=== PATIENT | female | born 1940 | race African-American/Black ===

== ENCOUNTER 2016-10-17 14:53 | Inpatient (IN) | payer MEDICARE, OTHER ==
[~2016-10-17] VITALS: Ht 160 cm; Wt 104.9 kg
[~2016-10-17 14:53] MED LIST: AMLO10TA2 PO; ATOR40TA PO; CARV12.52 PO; CETI-17 PO; CITA10TA8 PO; CLON0.1T PO; FERR325T58 PO; FURO40TA4 PO; GLIP5TAB10 PO; HYDR-2869 PO; INSU100I13 SQ; INSU100I17 SQ; INSU100V8 SQ; ISOS60TA PO; LACT1CAP PO; LEVO75TA5 PO; LINA5TAB PO; NITR100C62 PO; ONDA4TAB10 SL; VANC1VIA3 PO
--- NOTE | 2016-10-17 15:23 | PHYS DOC ---
Past Medical History Past Medical History: CHF, Diabetes-Type I, Hypertension, Hypothyroid, Renal Failure Additional Past Medical Histor: Essential Tremors Past Surgical History: Appendectomy, Tubal ligation Additional Past Surgical Histo: AV Fistula Right Arm, BLADDER SX Alcohol Use: None Drug Use: None Adult General Chief Complaint Chief Complaint: SHORTNESS OF BREATH HPI HPI Patient is a 76 year old female who presents with complaint shortness of breath. Patient states that her symptoms started while she was at dialysis today. Patient states that she was approximately 3 hours in the treatment when she started having worsening shortness of breath. The patient was brought to the emergency department from dialysis. Patient states that she had been feeling sick including having chest pressure which started yesterday. Patient states that that has been constant. Patient has nausea but denies any vomiting. Patient states her shortness of breath gets worse with exertion. Patient denies any fevers or sick contacts. Patient follows with Dr. Hart for primary care. Review of Systems Review of Systems Constitutional: Denies fever or chills [] Eyes: Denies change in visual acuity, redness, or eye pain [] HENT: Denies nasal congestion or sore throat [] Respiratory: Shortness of breath [] Cardiovascular: Chest pain, denies edema [] GI: Nausea, denies abdominal pain, vomiting, bloody stools or diarrhea [] : Denies dysuria or hematuria [] Musculoskeletal: Denies back pain or joint pain [] Integument: Denies rash or skin lesions [] Neurologic: Denies headache, focal weakness or sensory changes [] Current Medications Current Medications Current Medications Medications (Trade) Dose Ordered Sig/Pat Start Time Stop Time Status Last Admin Dose Admin Acetaminophen (Tylenol) 650 mg PRN Q4HRS PRN 10/17/16 17:30 10/18/16 17:29 Ondansetron HCl (Zofran) 4 mg PRN Q8HRS PRN 10/17/16 17:30 10/18/16 17:29 Oseltamivir Phosphate (Tamiflu) 30 mg 1X ONCE 10/17/16 16:20 10/17/16 16:22 DC 10/17/16 16:32 30 MG Allergies Allergies Allergies Coded Allergies Type Severity Reaction Last Updated Verified morphine Allergy Severe 06/12/14 Yes codeine Allergy Intermediate HIVES 06/12/14 Yes Physical Exam Physical Exam Constitutional: Alert, afebrile, appears ill. [] HENT: Normocephalic, atraumatic, bilateral external ears normal, oropharynx moist, no oral exudates, nose normal. [] Eyes: PERRLA, EOMI, conjunctiva normal, no discharge. [] Neck: Normal range of motion, no tenderness, supple, no stridor. [] Cardiovascular:Heart rate regular rhythm, no murmur [] Lungs & Thorax: Bilateral breath sounds clear to auscultation [] Abdomen: Bowel sounds normal, soft, no tenderness, no masses, no pulsatile masses. [] Skin: Warm, dry, no erythema, no rash. [] Back: No tenderness, no CVA tenderness. [] Extremities: Right upper extremity AV fistula with palpable thrill, No tenderness, no cyanosis, no clubbing, ROM intact, trace pedal edema bilaterally. [] Neurologic: Alert and oriented X 3, normal motor function, normal sensory function, no focal deficits noted. [] Current Patient Data Vital Signs Vital Signs Date Time Temp Pulse Resp B/P Pulse Ox O2 Delivery O2 Flow Rate FiO2 10/17/16 16:00 69 19 118/58 94 Room Air 10/17/16 15:04 98.2 98.2 Lab Values Laboratory Tests Test 10/17/16 15:30 10/17/16 15:40 10/17/16 16:02 White Blood Count 5.1x10^3/uL (4.0-11.0) Red Blood Count 3.87x10^6/uL (3.50-5.40) Hemoglobin 11.5g/dL (12.0-15.5) L Hematocrit 34.1% (36.0-47.0) L Mean Corpuscular Volume 88fL (79-100) Mean Corpuscular Hemoglobin 30pg (25-35) Mean Corpuscular Hemoglobin Concent 34g/dL (31-37) Red Cell Distribution Width 14.0% (11.5-14.5) Platelet Count 177x10^3/uL (140-400) Neutrophils (%) (Auto) 64% (31-73) Lymphocytes (%) (Auto) 25% (24-48) Monocytes (%) (Auto) 8% (0-9) Eosinophils (%) (Auto) 3% (0-3) Basophils (%) (Auto) 0% (0-3) Neutrophils # (Auto) 3.2x10^3uL (1.8-7.7) Lymphocytes # (Auto) 1.2x10^3/uL (1.0-4.8) Monocytes # (Auto) 0.4x10^3/uL (0.0-1.1) Eosinophils # (Auto) 0.2x10^3/uL (0.0-0.7) Basophils # (Auto) 0.0x10^3/uL (0.0-0.2) Influenza Type A Antigen Positive (NEGATIVE) Influenza Type B Antigen Negative (NEGATIVE) Sodium Level 142mmol/L (136-145) Potassium Level 3.7mmol/L (3.5-5.1) Chloride Level 101mmol/L (98-107) Carbon Dioxide Level 33mmol/L (21-32) H Anion Gap 8 (6-14) Blood Urea Nitrogen 20mg/dL (7-20) Creatinine 3.9mg/dL (0.6-1.0) H Estimated GFR (Cockcroft-Gault) 13.6 BUN/Creatinine Ratio 5 (6-20) L Glucose Level 242mg/dL (70-99) H Calcium Level 8.8mg/dL (8.5-10.1) Total Bilirubin 0.4mg/dL (0.2-1.0) Aspartate Amino Transferase (AST) 16U/L (15-37) Alanine Aminotransferase (ALT) 20U/L (14-59) Alkaline Phosphatase 64U/L (46-116) Creatine Kinase 40U/L (26-192) Creatine Kinase MB (Mass) 1.4ng/mL (0.0-3.6) Creatine Kinase MB Relative Index 3.5% (0-4) Troponin I Quantitative < 0.017ng/mL (0.000-0.055) Total Protein 7.9g/dL (6.4-8.2) Albumin 3.2g/dL (3.4-5.0) L Albumin/Globulin Ratio 0.7 (1.0-1.7) L Laboratory Tests 10/17/16 15:30 Laboratory Tests 10/17/16 16:02 EKG EKG Interpreted by me: Heart rate 71, sinus rhythm, leftward axis, no acute ST/T- wave abnormalities present [] Radiology/Procedures Radiology/Procedures [facility] [address] [place], [place] [id number] IMAGING REPORT Signed PATIENT: MALA BAILEY ACCOUNT: [id number] : 1940 LOCATION: ER AGE: 76 SEX: F EXAM STATUS: REG ER ORD. PHYSICIAN: NYASIA KINCAID MD REASON: shortness of breath, chest pain, PROCEDURE: PORTABLE CHEST 1V Portable chest, 10/17/2016: History: Shortness of breath, chest pain Comparison is made to a study from 08/13/2016. The heart is at the upper limits of normal in size. There is calcific plaquing and tortuosity of the aorta. The pulmonary vascularity is normal. No pulmonary infiltrates are seen.. There is no evidence of pleural fluid. A vascular stent is projected over the right subclavian/axillary region. IMPRESSION: No acute cardiopulmonary abnormality is detected. DICTATED and SIGNED BY: LADARIUS FARR MD DATE: 10/17/16 155 CC: NYASIA KINCAID MD; BROOKE HART MD ~ [] Course & Med Decision Making Course & Med Decision Making Pertinent Labs and Imaging studies reviewed. (See chart for details) Patient was found to test positive for influenza A. Patient was started on Tamiflu 30 mg for renal dosing. Spoke with patient regarding her symptoms. Patient continues to have chest pressure and states that she does not feel comfortable returning home in her current state health. I spoke with Dr. Hart who agreed to admit the patient for continued treatment of influenza and symptoms. Dragon Disclaimer Dragon Disclaimer This electronic medical record was generated, in whole or in part, using a voice recognition dictation system. Departure Departure Impression: Primary Impression: Influenza A Additional Impressions: End stage renal disease Type 2 diabetes mellitus Mild protein malnutrition Disposition: ADMITTED INPATIENT Admitting Physician: Brooke Hart Condition: STABLE Referrals: BROOKE HART MD (PCP) Problem Qualifiers Additional Impressions: Type 2 diabetes mellitus Diabetes mellitus complication status: with hyperglycemia Diabetes mellitus long-term insulin use: unspecified technician terminal and repeater insulin use status Qualified Code : E11.65 - Type 2 diabetes mellitus with hyperglycemia NYASIA KINCAID MD Oct 17, 2016 15:23
[2016-10-17 15:48] LABS: BASO % 0 % (0-3); EOS % 3 % (0-3); HEMATOCRIT 34.1 % (36.0-47.0); HEMOGLOBIN 11.5 g/dL (12.0-15.5); LYMPH # 1.2 x10^3/uL (1.0-4.8); LYMPH % 25 % (24-48); MEAN CORPUSCULAR HEMOGLOBIN 30 pg (25-35); MEAN CORPUSCULAR HGB CONC 34 g/dL (31-37); MEAN CORPUSCULAR VOLUME 88 fL (79-100); MONO % 8 % (0-9); NEUT % 64 % (31-73); PLATELET COUNT 177 x10^3/uL (140-400); RED BLOOD COUNT 3.87 x10^6/uL (3.50-5.40); WHITE BLOOD COUNT 5.1 x10^3/uL (4.0-11.0)
--- NOTE | 2016-10-17 15:55 | RAD ---
Portable chest, 10/17/2016: History: Shortness of breath, chest pain Comparison is made to a study from 08/13/2016. The heart is at the upper limits of normal in size. There is calcific plaquing and tortuosity of the aorta. The pulmonary vascularity is normal. No pulmonary infiltrates are seen.. There is no evidence of pleural fluid. A vascular stent is projected over the right subclavian/axillary region. IMPRESSION: No acute cardiopulmonary abnormality is detected.
[2016-10-17 16:09] LABS: OBC FLU VALID
--- NOTE | 2016-10-17 16:14 | EKG ---
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
[2016-10-17 16:20] LABS: CALCIUM 8.8 mg/dL (8.5-10.1); CREATININE 3.9 mg/dL (0.6-1.0); GFR 13.6; POTASSIUM 3.7 mmol/L (3.5-5.1)
[2016-10-17] MEDS ORDERED: OSELTAMIVIR 30 MG CAPSULE PO ONE (16:20)
[2016-10-17 16:26] LABS: ALBUMIN 3.2 g/dL (3.4-5.0); ALBUMIN/GLOBULIN RATIO 0.7 (1.0-1.7); TOTAL BILIRUBIN 0.4 mg/dL (0.2-1.0); TOTAL PROTEIN 7.9 g/dL (6.4-8.2)
[2016-10-17 16:47] LABS: CKMB INDEX 3.5 % (0-4); CKMB MASS 1.4 ng/mL (0.0-3.6)
[2016-10-17] MEDS ORDERED: ACETAMINOPHEN 325 MG TABLET. PO PRN (17:30)
[2016-10-17] MEDS ORDERED: ONDANSETRON PF 4 MG/2 ML VIAL. IV PRN (17:30)
--- NOTE | 2016-10-17 17:59 | ACF ---
Admission Forms Criteria SYSTEMIC OR INFECTIOUS CONDITION Clinical Indications for Admission to Inpatient Care (Place 'X' for any and all applicable criteria): Hospital admission is needed for appropriate care of the patient because of ANY ONE of the following: []I. Hemodynamic instability indicated by ANY ONE of the following(1)(2)(3)(4 )(5): []a. Vital sign abnormality not readily corrected by appropriate treatment within 12 to 24 hours indicated by ANY ONE of the following: []i) Tachycardia that persists despite appropriate treatment []ii) Hypotension that persists despite appropriate treatment []iii) Orthostatic vital sign changes that persist despite appropriate treatment []b. Vital sign abnormality that is severe indicated by ANY ONE of the following: []i. Inadequate perfusion indicated by ANY ONE of the following: []1) Lactic acidosis (greater than 2 mmol/L) []2) New abnormal capillary refill (greater than 3 seconds) []3) Reduced urine output []4) New altered mental status []5) Myocardial Ischemia []ii. Mean arterial pressure [A] less than 60 mm Hg []iii. Mean arterial pressure[A] less than 70 mm Hg after 30 minutes of appropriate treatment (eg, fluid resuscitation) []iv. Sustained heart rate greater than 120 beats per minute in adult []v. IV inotropic or vasopressor medication required to maintain adequate blood pressure or perfusion []II. Systemic or infectious condition causing severe symptoms or findings not responsive to emergency or observation care treatment (as appropriate) indicated by ANY ONE of the following: []a. Cardiac arrhythmias of immediate concern(1)(2)(3) []b. Severe endocrine disorder (eg, thyrotoxicosis, adrenal insufficiency)(4)(5) []c. Seizures (eg, new or recurrent)(6) []d. New-onset end organ failure or dysfunction as indicated by ANY ONE of the following: []i. Acute unexplained hypoxemia (eg, not from lung infection or chronic disease)(7)(8)(9) []ii. Acute renal failure as indicated by new onset of ANY ONE of the following(10)(11)(12)(13)(14): []1) 3-fold rise in serum creatinine from baseline []2) Serum creatinine greater than 4 mg/dL (354 micromoles/L) with acute rise greater than 0.5 mg/dL (44.2 micromoles/L) []3) Reduction of more than 75% in estimated glomerular filtration rate from baseline. []4) Estimated glomerular filtration rate less than 35 mL/min/1.73m2 ( 0.59 mL/sec/1.73m2) in child younger than 18 years. []5) Cessation of urine output indicated by ALL of the following: []A. Adequate volume status []B. Inadequate urine output as indicated by ANY ONE of the following: []a. Urine output less than 0.3 mL/kg/hr for 24 hours []b. Anuria (urine output less than 0.1 mL/kg/hr) for 12 hours []iii. Acute mental status changes(15) []iv. Acute hepatic failure (eg, plasma bilirubin greater than 4 mg/ dL (68 micromoles/L), new INR greater than 2.0)(16)(17) []e. Unmanageable nausea and vomiting(18) []f. New-onset or uncontrolled central diabetes insipidus(19)(20) []g. Clinically significant dehydration(18)(21) []h. Hypoglycemia(22) []i. Acidosis (pH less than 7.35) or alkalosis (pH greater than 7.45)( 22)(23) []j. Toxic drug level that indicates need for specific monitoring or treatment(24)(25) []k. Severe electrolyte abnormalities indicated by ALL of the following( 1)(2)(3): []i. Electrolytes and associated findings are not as expected for patient baseline or acceptable treatment effects. []ii. Severe abnormalities indicated by ANY ONE of the following: []1) Sodium less than 130 mEq/L (mmol/L) (new) []2) Sodium less than 135 mEq/L (mmol/L) with ANY ONE of the following: []A. Uncorrectable (to near normal or chronic baseline) after trial of outpatient and emergency treatment []B. Altered mental status []C. Seizures []D. Severe medical etiology requiring inpatient management (eg , heart failure, hypovolemia) []3) Sodium greater than 155 mEq/L (mmol/L) []4) Sodium greater than 150 mEq/L (mmol/L) with ANY ONE of the following: []A. Uncorrectable (to near normal or chronic baseline) with outpatient and emergency treatment []B. Altered mental status []C. Seizures []D. Severe medical etiology (eg, hypovolemia, diabetes insipidus) []5) Potassium less than 2.5 mEq/L (mmol/L) despite outpatient and emergency treatment []6) Potassium less than 3 mEq/L (mmol/L) with ANY ONE of the following : []A. Weakness []B. Cardiac abnormality (eg, arrhythmia, conduction disturbance ) []C. Cardiac ischemia []D. Ileus []E. Ongoing medical cause requiring inpatient management (eg, acute renal wasting or SIADH) []F. Other severe symptoms []7) Potassium greater than 6.5 mEq/L (mmol/L) []8) Potassium greater than 5 mEq/L (mmol/L) with ANY ONE of the following: []A. Uncorrectable (to near normal or chronic baseline) with outpatient and emergency treatment []B. Severe ECG findings[A] []C. Acute worsening of renal failure (creatinine greater than 2.5 mg/dL (221 micromoles/L) or significant elevation for age and size) []D. Severe weakness []E. Severe medical etiology (eg, hemolysis, infection, drug overdose) []9) Calcium less than 7 mg/dL (1.75 mmol/L) despite outpatient and emergency treatment(5) []10) Calcium less than 8 mg/dL (2 mmol/L) with significant symptoms or findings (eg, altered mental status, muscle spasms, seizures, breathing difficulty, cardiac abnormality (eg, arrhythmia or conduction disturbance))(5) []11) Calcium greater than 14 mg/dL (3.5 mmol/L)(5) []12) Calcium greater than 12 mg/dL (3 mmol/L) with ANY ONE of the following(5): []A. Uncorrectable (to near normal or chronic baseline) with outpatient and emergency treatment []B. Significant dehydration or hypovolemia as indicated by ALL of the following(3)(6)(7): []a. Not resolved with initial treatments []b. Clinically significant dehydration as indicated by ANY ONE of the following: [](1) Vomiting refractory to outpatient treatment (ie, precluding oral rehydration) [](2) Inability to drink [](3) Hypernatremia or other electrolyte abnormality unable to be corrected with outpatient and emergency treatment [](4) Failure to remain hydrated with outpatient therapy [](5) Reduced urine output [](6) Hypotension [](7) Serious cause for dehydration requiring acute hospitalization ( eg, bowel obstruction, increased intracranial pressure, infectious cause) [](8) Child with ANY ONE of the following(8): [](i) Severe abdominal tenderness [](ii) Adequate care not available at home [](iii) Severe dehydration (greater than 9% loss of body weight) []C. Significant symptoms or findings (eg, altered mental status , cardiac abnormality (eg, arrhythmia, conduction disturbance), malignant etiology requiring inpatient treatment) []13) Phosphorus less than 1 mg/dL (0.32 mmol/L) []14) Phosphorus less than 1.5 mg/dL (0.48 mmol/L) with ANY ONE of the following: []A. Patient unresponsive to outpatient and emergency treatment []B. Significant symptoms or findings (eg, weakness, altered mental status, breathing difficulty, seizures, rhabdomyolysis) []15) Phosphorus greater than 10 mg/dL (3.2 mmol/L) []16) Phosphorus greater than 4.5 mg/dL (1.45 mmol/L) (new) with ANY ONE of the following: []A. Severe medical etiology (eg, crush injury, acute renal failure) []B. Associated hypocalcemia with significant findings (eg, neurologic symptoms, altered mental status, muscle spasms, seizures, breathing difficulty, cardiac abnormality (eg, arrhythmia, conduction disturbance)) []16) Magnesium less than 1 mg/dL (0.41 mmol/L) []17) Magnesium less than 1.5 mg/dL (0.62 mmol/L) with ANY ONE of the following: []A. Patient unresponsive to outpatient and emergency treatment []B. Associated hypocalcemia with significant findings (eg, altered mental status, muscle spasms, seizures, breathing difficulty, cardiac abnormality (eg, arrhythmia, conduction disturbance)) []C. Associated hypokalemia (potassium less than 3 mEq/L (mmol/L )) with risk of arrhythmia []18) Magnesium greater than 4 mEq/L (2 mmol/L) []19) Magnesium greater than 2.5 mEq/L (1.25 mmol/L) with significant symptoms or findings (eg, weakness, altered mental status, cardiac abnormality (eg, arrhythmia, conduction disturbance), breathing difficulty, severe medical etiology (eg, renal failure, hypovolemia)) []20) Uric acid greater than 20 mg/dL (1190 micromoles/L)(9) []21) Uric acid greater than 8 mg/dL (476 micromoles/L) with significant symptoms or findings of tumor lysis syndrome (eg, creatinine greater than 1.5 times upper limit of normal, cardiac abnormality (eg , arrhythmia, conduction disturbance), seizure)(9) []III. High fever or other high-risk infection situation as indicated by ANY ONE of the following(26)(27)(28): []a. Outpatient and observation care antimicrobial treatment unavailable, not effective, or not appropriate []b. Documented bacteremia []c. Temperature greater than 104.9 degrees F (40.5 degrees C) (oral) []d. Temperature greater than 103.1 degrees F (39.5 degrees C) (oral) or less than 96.8 degrees F (36 degrees C) (rectal) that does not respond to emergency treatment and observation care []IV. High-risk febrile neutropenia[A] as indicated by ANY ONE of the following(29)(30)(31)(32): []a. Profound neutropenia[B] anticipated to extend for more than 7 days []b. Hemodynamic instability []c. Hypoxemia []d. Tachypnea []e. Altered mental status []f. New-onset abdominal pain []g. New-onset vomiting or diarrhea []h. Oral or gastrointestinal mucositis that interferes with swallowing or causes severe diarrhea []i. Focal infection (eg, cellulitis, pneumonia, central line or catheter infection, perirectal abscess) []j. Renal insufficiency (eg, GFR of less than 30 mL/min/1.73m2 (0.5 mL/sec /1.73m2)). []k. Severe liver dysfunction (transaminase levels greater than 5 times normal) []l. Platelet count less than 50,000/mm3 (50 x109/L)(33) []m. Leukemia or lymphoma induction therapy []n. Leukemia not in complete remission or with evidence of disease progression []o. Bone marrow transplant patient []p. Alemtuzumab being used for therapy []q. [employer]in[employer] Association for Supportive Care in Cancer (MASCC) Risk Index score of less than 21[C](33)(35). []V. Isolation required (eg, tuberculosis that requires isolation, Ebola infection)[D](36)(37)(38)(39)(40) []. Gangrene that requires treatment beyond emergency or observation level care(41)(42) []VII. Antitoxin administration and ongoing observation required (eg, tetanus, botulism)(43)(44) [X]. Suspected infection with rapid progression or severe symptoms as indicated by ANY ONE of the following(45): []a. Streptococcal or staphylococcal toxic shock(46) []b. Diphtheria(47) []c. Hantavirus(48) []d. Severe acute respiratory syndrome(8)(49) []e. Anthrax(50) []f. Ebola[D](36)(37)(38) []g. Necrotizing soft tissue infection(41)(42) []h. Plague(50) [X]i. Other suspected infection that requires care beyond emergency or observation level care []VII. Severe adverse drug or systemic toxin reaction as indicated by ANY ONE of the following(24): []a. Serotonin syndrome(51)(52) []b. Neuroleptic malignant syndrome(51)(52) []c. Cholinergic syndrome with severe symptoms (eg, bronchorrhea, weakness , mental status changes, seizures)(53) []d. Anticholinergic syndrome []e. Sympathetic syndrome with severe symptoms (eg, seizures, mental status changes, cardiac dysrhythmias) []f. Other severe adverse drug or systemic toxin reaction that remains after emergency or observation level care (as appropriate) []VIII. Allergic reaction with severe symptoms (not responsive to emergency or observation care treatment as appropriate), including ANY ONE of the following(54): []a. Airway edema (pharyngeal, epiglottic, or laryngeal edema) []b. Stridor []c. Respiratory failure []d. Bronchospasm []e. Hypotension []IX. Environmental emergency (not responsive to emergency or observation care treatment as appropriate) as indicated by ANY ONE of the following(55)(56): []a. Hyperthermia []b. Heat stroke []c. Heat exhaustion []d. Hypothermia (temperature less than 95 degrees F (35 degrees C) rectal) (57) []e. Electrocution(58) []X. Complications of transplanted organ (ie, not covered elsewhere)[E] indicated by ANY ONE of the following(59): []a. Acute graft rejection (or graft vs. host disease)[F] requiring inpatient management (eg, intravenous immunosuppression)(60)(61)(62)( 63) []b. Acute failure of transplanted organ necessitating inpatient care (eg, cannot be managed in other setting) []c. Infection requiring inpatient management (eg, Hemodynamic instability, need for intravenous antimicrobial treatment)(64)(65) []d. Other complication of transplanted organ requiring inpatient management []XI. Systemic or Infectious Condition condition, symptom, or finding for which emergency and observation care have failed or are not considered appropriate. See General Criteria: Observation Care, General Admission Criteria or Pediatric General Admission Criteria guideline as appropriate. The original [facility] content created by [facility] has been revised. The portions of the content which have been revised are identified through the use of italic text or in bold and [facility] has neither reviewed nor approved the modified material. All other unmodified content is copyright [facility]. Please see references footnoted in the original [facility] edition 2016 Admission Criteria Met?: Yes KEILA CHACON Oct 17, 2016 17:59
[2016-10-17 19:30] VITALS: BP 121/58
[2016-10-17 23:30] VITALS: BP 104/42
[2016-10-18] VITALS (9 sets, daily range): BP systolic 82–130; BP diastolic 39–71
[2016-10-18] MEDS ORDERED: INSU100I17 SQ ×2 (00:04)
[2016-10-18 04:10] LABS: BASO % 0 % (0-3); EOS % 4 % (0-3); HEMATOCRIT 31.9 % (36.0-47.0); HEMOGLOBIN 10.4 g/dL (12.0-15.5); LYMPH # 2.1 x10^3/uL (1.0-4.8); LYMPH % 34 % (24-48); MEAN CORPUSCULAR HEMOGLOBIN 29 pg (25-35); MEAN CORPUSCULAR HGB CONC 33 g/dL (31-37); MEAN CORPUSCULAR VOLUME 90 fL (79-100); MONO % 10 % (0-9); NEUT % 52 % (31-73); PLATELET COUNT 195 x10^3/uL (140-400); RED BLOOD COUNT 3.56 x10^6/uL (3.50-5.40); RED CELL DISTRIBUTION WIDTH 13.3 % (11.5-14.5); WHITE BLOOD COUNT 6.2 x10^3/uL (4.0-11.0)
[2016-10-18 04:45] LABS: CALCIUM 8.8 mg/dL (8.5-10.1); CREATININE 5.4 mg/dL (0.6-1.0); GFR 9.3; POTASSIUM 4.5 mmol/L (3.5-5.1)
[2016-10-18] MEDS ORDERED: ACETAMINOPHEN 325 MG TABLET. PO PRN (06:17)
[2016-10-18] MEDS ORDERED: ONDANSETRON PF 4 MG/2 ML VIAL. IV PRN (06:17)
[2016-10-18] MEDS ORDERED: LEVOTHYROXINE 75 MCG TABLET PO SCH (07:00)
[2016-10-18] MEDS ORDERED: CARVEDILOL 12.5 MG TABLET. PO SCH (08:00)
[2016-10-18] MEDS ORDERED: AMLODIPINE BESYLATE 10 MG TABLET. ONE (08:17)
[2016-10-18] MEDS: OSELTAMIVIR 30 MG CAPSULE PO SCH ×2 (08:26→09:00)
[2016-10-18] MEDS: CITALOPRAM 10 MG TABLET. PO SCH (08:26)
[2016-10-18] MEDS: AMLODIPINE BESYLATE 10 MG TABLET PO SCH (08:27)
[2016-10-18] MEDS: ISOSORBIDE MONONITRATE ER 60 MG TAB.ER.24H PO SCH (08:28)
[2016-10-18] MEDS: INSULIN ASPART 300 UNITS/3 ML INSULN.PEN SQ SCH ×3 (08:30→17:00)
[2016-10-18] MEDS ORDERED: GLIPIZIDE 5 MG TABLET PO SCH (09:00)
[2016-10-18] MEDS ORDERED: FUROSEMIDE 40 MG TABLET. PO SCH (09:00)
[2016-10-18] MEDS ORDERED: HYDRALAZINE 50 MG TABLET PO SCH (09:00)
[2016-10-18] MEDS ORDERED: FERROUS SULFATE 325 MG TABLET PO SCH (09:00)
[2016-10-18] MEDS ORDERED: LACTOBACILLUS ACIDOPH & BULGAR 1 TABLET. PO SCH (09:00)
--- NOTE | 2016-10-18 09:14 | PDOC ---
Provider Note Provider Note 1. influenzae A no sepsis 2. End-stage renal disease, on hemodialysis. 3. Congestive heart failure diastolic EF 55% stable 4. Diabetes mellitus with nephropathy and neuropathy. 5. 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 6. Essential tremors. 7. Status post appendectomy and cholecystectomy. 8. Anemia chronic disease renal /Fe def 9. Anxiety. 10. Depression. 11. Hypothyroidism 12. moderate chronic PCL malnutrition 13. severe weakness and debility 14. lung nodule x2 stable per comparison CT chest to previous CT Plan: tamiflu initiated nephrology consulted-in patient hemodialysis HTN-home meds DM II home meds/ssi/FSBS Please see HP to be completed For further plan of care, please refer to the orders. MAICO IQBAL APRN Oct 18, 2016 09:14
--- NOTE | 2016-10-18 10:09 | PDOC1 ---
MAICO IQBAL CRO 10/18/16 1009: HISTORY AND PHYSICAL Chief Complaint Chief Complaint This 76 year old female has been admitted with a chief complaint of influenzae A. She was last seen in the office in July and treated for acute bronchitis/UTI with Augmentin 500/125 bid x 7d. She reports feeling short of air 3 hours into dialysis. She also reports chest pain and feeling sick on 10/16. She presented to the ED straight from dialysis. A CXR was negative; EKG SR no acute changes and CE/troponin negative. An influenzae A swab was positive with temp on admit 99.2F. She was started on Tamiflu and admitted for further treatment. 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 ) Past Social History PSH no h/o tobacco, ETOH, or illicit drug use Review of Symptoms Review of Symptoms A 14 point ROS was completed with the following noted as positive: per HPI. CP: no palpitations, n/v or diaphoresis. + cough non productive. Still cold sx since treatment in July for AB. Other systems reviewed and negative. Medications Medications reviewed and reconciled. Allergy Allergies Coded Allergies Type Severity Reaction Last Updated Verified morphine Allergy Severe 06/12/14 Yes codeine Allergy Intermediate HIVES 06/12/14 Yes Physical Exam Physical Exam General appearance - alert, ill appearing, and in no distress Mental Status - alert, oriented to person, place, and time, affect appropriate to mood Head - normal Chest - clear to auscultation, no wheezes, rales or rhonchi Heart - S1 and S2 normal Abdomen - soft, nontender, nondistended, obese, soft Neurological -no acute focal neurological deficit noted Musculoskeletal - no muscular tenderness noted Extremities - no pedal edema Skin - warm and dry VTE Prophylaxis Ordered VTE Prophylaxis Devices: Yes VTE Pharmacological Prophylaxi: No Assessment Labs Laboratory Tests Test 10/17/16 15:30 10/17/16 15:40 10/17/16 16:02 10/17/16 21:21 White Blood Count 5.1x10^3/uL (4.0-11.0) Red Blood Count 3.87x10^6/uL (3.50-5.40) Hemoglobin 11.5g/dL (12.0-15.5) Hematocrit 34.1% (36.0-47.0) Mean Corpuscular Volume 88fL (79-100) Mean Corpuscular Hemoglobin 30pg (25-35) Mean Corpuscular Hemoglobin Concent 34g/dL (31-37) Red Cell Distribution Width 14.0% (11.5-14.5) Platelet Count 177x10^3/uL (140-400) Neutrophils (%) (Auto) 64% (31-73) Lymphocytes (%) (Auto) 25% (24-48) Monocytes (%) (Auto) 8% (0-9) Eosinophils (%) (Auto) 3% (0-3) Basophils (%) (Auto) 0% (0-3) Neutrophils # (Auto) 3.2x10^3uL (1.8-7.7) Lymphocytes # (Auto) 1.2x10^3/uL (1.0-4.8) Monocytes # (Auto) 0.4x10^3/uL (0.0-1.1) Eosinophils # (Auto) 0.2x10^3/uL (0.0-0.7) Basophils # (Auto) 0.0x10^3/uL (0.0-0.2) Influenza Type A Antigen Positive (NEGATIVE) Influenza Type B Antigen Negative (NEGATIVE) Sodium Level 142mmol/L (136-145) Potassium Level 3.7mmol/L (3.5-5.1) Chloride Level 101mmol/L (98-107) Carbon Dioxide Level 33mmol/L (21-32) Anion Gap 8 (6-14) Blood Urea Nitrogen 20mg/dL (7-20) Creatinine 3.9mg/dL (0.6-1.0) Estimated GFR (Cockcroft-Gault) 13.6 BUN/Creatinine Ratio 5 (6-20) Glucose Level 242mg/dL (70-99) Calcium Level 8.8mg/dL (8.5-10.1) Total Bilirubin 0.4mg/dL (0.2-1.0) Aspartate Amino Transf (AST/SGOT) 16U/L (15-37) Alanine Aminotransferase (ALT/SGPT) 20U/L (14-59) Alkaline Phosphatase 64U/L (46-116) Creatine Kinase 40U/L (26-192) Creatine Kinase MB (Mass) 1.4ng/mL (0.0-3.6) Creatine Kinase MB Relative Index 3.5% (0-4) Troponin I Quantitative < 0.017ng/mL (0.000-0.055) Total Protein 7.9g/dL (6.4-8.2) Albumin 3.2g/dL (3.4-5.0) Albumin/Globulin Ratio 0.7 (1.0-1.7) Glucose (Fingerstick) 234mg/dL (70-99) Test 10/18/16 03:32 10/18/16 07:14 White Blood Count 6.2x10^3/uL (4.0-11.0) Red Blood Count 3.56x10^6/uL (3.50-5.40) Hemoglobin 10.4g/dL (12.0-15.5) Hematocrit 31.9% (36.0-47.0) Mean Corpuscular Volume 90fL (79-100) Mean Corpuscular Hemoglobin 29pg (25-35) Mean Corpuscular Hemoglobin Concent 33g/dL (31-37) Red Cell Distribution Width 13.3% (11.5-14.5) Platelet Count 195x10^3/uL (140-400) Neutrophils (%) (Auto) 52% (31-73) Lymphocytes (%) (Auto) 34% (24-48) Monocytes (%) (Auto) 10% (0-9) Eosinophils (%) (Auto) 4% (0-3) Basophils (%) (Auto) 0% (0-3) Neutrophils # (Auto) 3.2x10^3uL (1.8-7.7) Lymphocytes # (Auto) 2.1x10^3/uL (1.0-4.8) Monocytes # (Auto) 0.6x10^3/uL (0.0-1.1) Eosinophils # (Auto) 0.2x10^3/uL (0.0-0.7) Basophils # (Auto) 0.0x10^3/uL (0.0-0.2) Sodium Level 140mmol/L (136-145) Potassium Level 4.5mmol/L (3.5-5.1) Chloride Level 101mmol/L (98-107) Carbon Dioxide Level 32mmol/L (21-32) Anion Gap 7 (6-14) Blood Urea Nitrogen 28mg/dL (7-20) Creatinine 5.4mg/dL (0.6-1.0) Estimated GFR (Cockcroft-Gault) 9.3 Glucose Level 160mg/dL (70-99) Calcium Level 8.8mg/dL (8.5-10.1) Glucose (Fingerstick) 132mg/dL (70-99) Laboratory Tests Test 10/17/16 15:30 10/17/16 15:40 10/17/16 16:02 10/17/16 21:21 White Blood Count 5.1x10^3/uL (4.0-11.0) Red Blood Count 3.87x10^6/uL (3.50-5.40) Hemoglobin 11.5g/dL (12.0-15.5) Hematocrit 34.1% (36.0-47.0) Mean Corpuscular Volume 88fL (79-100) Mean Corpuscular Hemoglobin 30pg (25-35) Mean Corpuscular Hemoglobin Concent 34g/dL (31-37) Red Cell Distribution Width 14.0% (11.5-14.5) Platelet Count 177x10^3/uL (140-400) Neutrophils (%) (Auto) 64% (31-73) Lymphocytes (%) (Auto) 25% (24-48) Monocytes (%) (Auto) 8% (0-9) Eosinophils (%) (Auto) 3% (0-3) Basophils (%) (Auto) 0% (0-3) Neutrophils # (Auto) 3.2x10^3uL (1.8-7.7) Lymphocytes # (Auto) 1.2x10^3/uL (1.0-4.8) Monocytes # (Auto) 0.4x10^3/uL (0.0-1.1) Eosinophils # (Auto) 0.2x10^3/uL (0.0-0.7) Basophils # (Auto) 0.0x10^3/uL (0.0-0.2) Influenza Type A Antigen Positive (NEGATIVE) Influenza Type B Antigen Negative (NEGATIVE) Sodium Level 142mmol/L (136-145) Potassium Level 3.7mmol/L (3.5-5.1) Chloride Level 101mmol/L (98-107) Carbon Dioxide Level 33mmol/L (21-32) Anion Gap 8 (6-14) Blood Urea Nitrogen 20mg/dL (7-20) Creatinine 3.9mg/dL (0.6-1.0) Estimated GFR (Cockcroft-Gault) 13.6 BUN/Creatinine Ratio 5 (6-20) Glucose Level 242mg/dL (70-99) Calcium Level 8.8mg/dL (8.5-10.1) Total Bilirubin 0.4mg/dL (0.2-1.0) Aspartate Amino Transf (AST/SGOT) 16U/L (15-37) Alanine Aminotransferase (ALT/SGPT) 20U/L (14-59) Alkaline Phosphatase 64U/L (46-116) Creatine Kinase 40U/L (26-192) Creatine Kinase MB (Mass) 1.4ng/mL (0.0-3.6) Creatine Kinase MB Relative Index 3.5% (0-4) Troponin I Quantitative < 0.017ng/mL (0.000-0.055) Total Protein 7.9g/dL (6.4-8.2) Albumin 3.2g/dL (3.4-5.0) Albumin/Globulin Ratio 0.7 (1.0-1.7) Glucose (Fingerstick) 234mg/dL (70-99) Test 10/18/16 03:32 10/18/16 07:14 White Blood Count 6.2x10^3/uL (4.0-11.0) Red Blood Count 3.56x10^6/uL (3.50-5.40) Hemoglobin 10.4g/dL (12.0-15.5) Hematocrit 31.9% (36.0-47.0) Mean Corpuscular Volume 90fL (79-100) Mean Corpuscular Hemoglobin 29pg (25-35) Mean Corpuscular Hemoglobin Concent 33g/dL (31-37) Red Cell Distribution Width 13.3% (11.5-14.5) Platelet Count 195x10^3/uL (140-400) Neutrophils (%) (Auto) 52% (31-73) Lymphocytes (%) (Auto) 34% (24-48) Monocytes (%) (Auto) 10% (0-9) Eosinophils (%) (Auto) 4% (0-3) Basophils (%) (Auto) 0% (0-3) Neutrophils # (Auto) 3.2x10^3uL (1.8-7.7) Lymphocytes # (Auto) 2.1x10^3/uL (1.0-4.8) Monocytes # (Auto) 0.6x10^3/uL (0.0-1.1) Eosinophils # (Auto) 0.2x10^3/uL (0.0-0.7) Basophils # (Auto) 0.0x10^3/uL (0.0-0.2) Sodium Level 140mmol/L (136-145) Potassium Level 4.5mmol/L (3.5-5.1) Chloride Level 101mmol/L (98-107) Carbon Dioxide Level 32mmol/L (21-32) Anion Gap 7 (6-14) Blood Urea Nitrogen 28mg/dL (7-20) Creatinine 5.4mg/dL (0.6-1.0) Estimated GFR (Cockcroft-Gault) 9.3 Glucose Level 160mg/dL (70-99) Calcium Level 8.8mg/dL (8.5-10.1) Glucose (Fingerstick) 132mg/dL (70-99) Plan Plan 1. influenzae A no sepsis 2. End-stage renal disease, on hemodialysis. 3. Congestive heart failure diastolic EF 55% stable 4. Diabetes mellitus with nephropathy and neuropathy. 5. 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 6. Essential tremors. 7. Status post appendectomy and cholecystectomy. 8. Anemia chronic disease renal /Fe def 9. Anxiety. 10. Depression. 11. Hypothyroidism 12. moderate chronic PCL malnutrition 13. severe weakness and debility 14. lung nodule x2 stable per comparison CT chest to previous CT Plan: influenzae A nebulizer Tamiflu x 5d CP CE negative, EKG negative suspect r/t flu consult cardiology check TSH/T4-hypothyroid DM II Home med: levemir 6unit at hs, Novolog 8-8-10 tid ac FSBS/ssi Glucose 132-242 check Hba1c anemia Fe deficiency FE Admit Hgb 11.5 10/18 10.4 hyperlipidemia atorvastin 40 daily check lipids ESRD renal consult continue HD 3x/week in patient For more details regarding further plans, please refer to the orders. SHADI DUVALL MD 10/18/16 1033: HISTORY AND PHYSICAL Plan Plan ESRD on HD. The patient was seen and examined by me. Chart reviewed and plan of care formulated. Discussed with, reviewed and agree with JEWELRY SALES REPRESENTATIVE's notes, plan of care and orders with modifications as necessary. For more details regarding further plans, please refer to the orders. MAICO IQBAL APRN Oct 18, 2016 10:09 SHADI DUVALL MD Oct 18, 2016 10:33
[2016-10-18] MEDS ORDERED: GUAIFENESIN DM 200MG/20MG 10 ML SYRUP. PO PRN (10:15)
[2016-10-18] MEDS ORDERED: HYDROXYCHLOROQUINE 200 MG TABLET PO SCH (11:00)
--- NOTE | 2016-10-18 11:48 | PDOC2 ---
CONSULT Date of Consult Date of Consult DATE: 10/18/16 TIME: 11:42 Reason for Consult Reason for Consult: ESRD Referring Physician Referring Physician: ELOINA Identification/Chief Complaint Chief Complaint SOB Source Source: Chart review, Patient History of Present Illness Reason for Visit: THIS IS A 76 YR OLD ADMITTED WITH SOB FROM HER HD UNIT. SHE HAS ESRD AND IS ON OP HD MWF. HER CXRAY IS NEG BUT SHE IS POSITIVE FOR INFLUENZA A. SHE ALSO COMPLAINTS OF A HEADACHE AND SINUS CONGESTION. 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 ) Social History ALCOHOL: none Lives: Alone Domestic Violence: Neg Current Problem List Problem List Problems Medical Problems: (1) End stage renal disease Status: Acute (2) Influenza A Status: Acute (3) Mild protein malnutrition Status: Acute (4) Type 2 diabetes mellitus Status: Acute Current Medications Current Medications Current Medications Oseltamivir Phosphate (Tamiflu) 30 mg 1X ONCE PO Last administered on 16:32; Start 10/17/16 at 16:20; Stop 10/17/16 at 16:22; Status DC Ondansetron HCl (Zofran) 4 mg PRN Q8HRS PRN IV NAUSEA/VOMITING; Start 10/17/16 at 17:30; Stop 10/18/16 at 06:17; Status DC Acetaminophen (Tylenol) 650 mg PRN Q4HRS PRN PO FEVER Last administered on 10/17 22:05; Start 10/17/16 at 17:30; Stop 10/18/16 at 06:17; Status DC Oseltamivir Phosphate (Tamiflu) 30 mg BID PO Last administered on 10/18/16 08: 26; Start 10/18/16 at 08:00; Stop 10/23/16 at 07:59 Amlodipine Besylate (Norvasc) 10 mg DAILY PO Last administered on 10/18/16 08: 27; Start 10/18/16 at 09:00 Insulin Aspart (Novolog) 8 units BIDACBL SQ Last administered on 10/18/16 08: 30; Start 10/18/16 at 07:30 Insulin Aspart (Novolog) 10 units DAILYWSUP SQ ; Start 10/18/16 at 17:00 Carvedilol (Coreg) 12.5 mg DAILYWBKFT PO Last administered on 10/18/16 08:29; Start 10/18/16 at 08:00 Citalopram Hydrobromide (Celexa) 10 mg DAILY PO Last administered on 10/18/16 08:26; Start 10/18/16 at 09:00 Clonidine HCl (Catapres) 0.1 mg QHS PO ; Start 10/18/16 at 21:00 Ferrous Sulfate (Feosol) 325 mg DAILY PO Last administered on 10/18/16 08:28; Start 10/18/16 at 09:00 Furosemide (Lasix) 40 mg DAILY PO Last administered on 10/18/16 08:26; Start 10/18/16 at 09:00 Glipizide (Glucotrol) 5 mg DAILY PO Last administered on 10/18/16 08:27; Start 10/18/16 at 09:00 Hydralazine HCl (Apresoline) 50 mg DAILY PO Last administered on 10/18/16 08: 28; Start 10/18/16 at 09:00 Isosorbide Mononitrate (Imdur) 60 mg DAILY PO Last administered on 10/18/16 08 :28; Start 10/18/16 at 09:00 Levothyroxine Sodium (Synthroid) 75 mcg DAILY07 PO Last administered on 06:17; Start 10/18/16 at 07:00 Cetirizine HCl (Zyrtec) 5 mg QHS PO ; Start 10/18/16 at 21:00 Lactobacillus Acidophilus (Bacid, Elizabeth-Bid) 2 tab DAILY PO Last administered on 10/18/16 08:29; Start 10/18/16 at 09:00 Ondansetron HCl (Zofran) 4 mg PRN Q8HRS PRN IV NAUSEA/VOMITING; Start 10/18/16 at 06:17; Stop 10/18/16 at 17:29 Acetaminophen (Tylenol) 650 mg PRN Q4HRS PRN PO FEVER; Start 10/18/16 at 06:17 ; Stop 10/18/16 at 10:22; Status DC Amlodipine Besylate (Norvasc) 10 mg STK-MED ONCE .ROUTE ; Start 10/18/16 at 08: 17; Stop 10/18/16 at 08:18; Status DC Acetaminophen (Tylenol) 650 mg PRN Q4HRS PRN PO FEVER; Start 10/18/16 at 10:15 Hydroxychloroquine Sulfate (Plaquenil) 200 mg BID PO ; Start 10/18/16 at 11:00 Calcium Acetate (Phoslo) 1,334 mg TIDWMEALS PO ; Start 10/18/16 at 12:00 Sevelamer Carbonate (Renvela) 800 mg TIDWMEALS PO ; Start 10/18/16 at 12:00 Atorvastatin Calcium (Lipitor) 40 mg QHS PO ; Start 10/18/16 at 21:00 Albuterol Sulfate (Ventolin Neb Soln) 2.5 mg RTQID NEB ; Start 10/18/16 at 12:00 Guaifenesin (Robitussin Dm) 10 ml PRN Q6HRS PRN PO COUGH; Start 10/18/16 at 10: 15 Active Scripts Active Imdur (Isosorbide Mononitrate) 60 Mg Tab.er.24h 60 Mg PO DAILY Zyrtec (Cetirizine Hcl) 10 Mg Tab.chew 5 Mg PO HS Celexa (Citalopram Hydrobromide) 10 Mg Tablet 10 Mg PO DAILY Reported Novolog Flexpen (Insulin Aspart) 100 Unit/1 Ml Insuln.pen 10 Unit SQ DAILYWSUP Novolog Flexpen (Insulin Aspart) 100 Unit/1 Ml Insuln.pen 8 Unit SQ BIDACBL Acidophilus-Pectin Capsule (Lactobacillus Acidophilus/Pect) 1 Each Capsule 1 Each PO DAILY Hydralazine Hcl 50 Mg Tablet 1 Tab PO DAILY Glipizide 5 Mg Tablet 5 Mg PO DAILY Iron Supplement (Ferrous Sulfate) 325 Mg Tablet 1 Tab PO DAILY Clonidine Hcl 0.1 Mg Tablet 1 Tab PO QHS Carvedilol 12.5 Mg Tablet 1 Tab PO DAILY Amlodipine Besylate 10 Mg Tablet 1 Tab PO DAILY Hydralazine Hcl 50 Mg Tablet 1 Tab PO DAILY Levothyroxine Sodium 75 Mcg Tablet 1 Tab PO DAILY Furosemide 40 Mg Tablet 1 Tab PO DAILY Allergies Allergies: Coded Allergies: morphine (Verified Allergy, Severe, 06/12/14) codeine (Verified Allergy, Intermediate, HIVES, 06/12/14) ROS General: YES: Appetite, Fatigue, Malaise PSYCHOLOGICAL ROS: YES: Anxiety Eyes: Yes Decreased vision HEENT: YES: Heacaches Respiratory: YES: Cough, Shortness of breath Gastrointestinal: Yes Constipation Genitourinary: YES Other (NOCTURIA) Musculoskeletal: Yes Muscular Weakness Neurological: Yes Weakness Skin: Yes Dry Skin Physical Exam General: Alert, No acute distress HEENT: Atraumatic, PERRLA Lungs: Clear to auscultation Heart: Regular rate Abdomen: Normal bowel sounds Extremities: No clubbing, No edema Neuro: Normal speech, Cranial nerves 3-12 NL Psych/Mental Status: Mental status NL, Mood NL MUSCULOSKELETAL: No deformity, No swelling Vitals VITALS Vital Signs Date Time Temp Pulse Resp B/P Pulse Ox O2 Delivery O2 Flow Rate FiO2 10/18/16 10:45 97.9 58 20 82/39 97 Room Air 97.9 Labs Labs Laboratory Tests Test 10/17/16 15:30 10/17/16 15:40 10/17/16 16:02 10/17/16 21:21 White Blood Count 5.1x10^3/uL (4.0-11.0) Red Blood Count 3.87x10^6/uL (3.50-5.40) Hemoglobin 11.5g/dL (12.0-15.5) Hematocrit 34.1% (36.0-47.0) Mean Corpuscular Volume 88fL (79-100) Mean Corpuscular Hemoglobin 30pg (25-35) Mean Corpuscular Hemoglobin Concent 34g/dL (31-37) Red Cell Distribution Width 14.0% (11.5-14.5) Platelet Count 177x10^3/uL (140-400) Neutrophils (%) (Auto) 64% (31-73) Lymphocytes (%) (Auto) 25% (24-48) Monocytes (%) (Auto) 8% (0-9) Eosinophils (%) (Auto) 3% (0-3) Basophils (%) (Auto) 0% (0-3) Neutrophils # (Auto) 3.2x10^3uL (1.8-7.7) Lymphocytes # (Auto) 1.2x10^3/uL (1.0-4.8) Monocytes # (Auto) 0.4x10^3/uL (0.0-1.1) Eosinophils # (Auto) 0.2x10^3/uL (0.0-0.7) Basophils # (Auto) 0.0x10^3/uL (0.0-0.2) Influenza Type A Antigen Positive (NEGATIVE) Influenza Type B Antigen Negative (NEGATIVE) Sodium Level 142mmol/L (136-145) Potassium Level 3.7mmol/L (3.5-5.1) Chloride Level 101mmol/L (98-107) Carbon Dioxide Level 33mmol/L (21-32) Anion Gap 8 (6-14) Blood Urea Nitrogen 20mg/dL (7-20) Creatinine 3.9mg/dL (0.6-1.0) Estimated GFR (Cockcroft-Gault) 13.6 BUN/Creatinine Ratio 5 (6-20) Glucose Level 242mg/dL (70-99) Calcium Level 8.8mg/dL (8.5-10.1) Total Bilirubin 0.4mg/dL (0.2-1.0) Aspartate Amino Transf (AST/SGOT) 16U/L (15-37) Alanine Aminotransferase (ALT/SGPT) 20U/L (14-59) Alkaline Phosphatase 64U/L (46-116) Creatine Kinase 40U/L (26-192) Creatine Kinase MB (Mass) 1.4ng/mL (0.0-3.6) Creatine Kinase MB Relative Index 3.5% (0-4) Troponin I Quantitative < 0.017ng/mL (0.000-0.055) Total Protein 7.9g/dL (6.4-8.2) Albumin 3.2g/dL (3.4-5.0) Albumin/Globulin Ratio 0.7 (1.0-1.7) Glucose (Fingerstick) 234mg/dL (70-99) Test 10/18/16 03:32 3/30/17 07:14 White Blood Count 6.2x10^3/uL (4.0-11.0) Red Blood Count 3.56x10^6/uL (3.50-5.40) Hemoglobin 10.4g/dL (12.0-15.5) Hematocrit 31.9% (36.0-47.0) Mean Corpuscular Volume 90fL (79-100) Mean Corpuscular Hemoglobin 29pg (25-35) Mean Corpuscular Hemoglobin Concent 33g/dL (31-37) Red Cell Distribution Width 13.3% (11.5-14.5) Platelet Count 195x10^3/uL (140-400) Neutrophils (%) (Auto) 52% (31-73) Lymphocytes (%) (Auto) 34% (24-48) Monocytes (%) (Auto) 10% (0-9) Eosinophils (%) (Auto) 4% (0-3) Basophils (%) (Auto) 0% (0-3) Neutrophils # (Auto) 3.2x10^3uL (1.8-7.7) Lymphocytes # (Auto) 2.1x10^3/uL (1.0-4.8) Monocytes # (Auto) 0.6x10^3/uL (0.0-1.1) Eosinophils # (Auto) 0.2x10^3/uL (0.0-0.7) Basophils # (Auto) 0.0x10^3/uL (0.0-0.2) Sodium Level 140mmol/L (136-145) Potassium Level 4.5mmol/L (3.5-5.1) Chloride Level 101mmol/L (98-107) Carbon Dioxide Level 32mmol/L (21-32) Anion Gap 7 (6-14) Blood Urea Nitrogen 28mg/dL (7-20) Creatinine 5.4mg/dL (0.6-1.0) Estimated GFR (Cockcroft-Gault) 9.3 Glucose Level 160mg/dL (70-99) Calcium Level 8.8mg/dL (8.5-10.1) Glucose (Fingerstick) 132mg/dL (70-99) Laboratory Tests Test 10/17/16 15:30 10/17/16 15:40 10/17/16 16:02 10/17/16 21:21 White Blood Count 5.1x10^3/uL (4.0-11.0) Red Blood Count 3.87x10^6/uL (3.50-5.40) Hemoglobin 11.5g/dL (12.0-15.5) Hematocrit 34.1% (36.0-47.0) Mean Corpuscular Volume 88fL (79-100) Mean Corpuscular Hemoglobin 30pg (25-35) Mean Corpuscular Hemoglobin Concent 34g/dL (31-37) Red Cell Distribution Width 14.0% (11.5-14.5) Platelet Count 177x10^3/uL (140-400) Neutrophils (%) (Auto) 64% (31-73) Lymphocytes (%) (Auto) 25% (24-48) Monocytes (%) (Auto) 8% (0-9) Eosinophils (%) (Auto) 3% (0-3) Basophils (%) (Auto) 0% (0-3) Neutrophils # (Auto) 3.2x10^3uL (1.8-7.7) Lymphocytes # (Auto) 1.2x10^3/uL (1.0-4.8) Monocytes # (Auto) 0.4x10^3/uL (0.0-1.1) Eosinophils # (Auto) 0.2x10^3/uL (0.0-0.7) Basophils # (Auto) 0.0x10^3/uL (0.0-0.2) Influenza Type A Antigen Positive (NEGATIVE) Influenza Type B Antigen Negative (NEGATIVE) Sodium Level 142mmol/L (136-145) Potassium Level 3.7mmol/L (3.5-5.1) Chloride Level 101mmol/L (98-107) Carbon Dioxide Level 33mmol/L (21-32) Anion Gap 8 (6-14) Blood Urea Nitrogen 20mg/dL (7-20) Creatinine 3.9mg/dL (0.6-1.0) Estimated GFR (Cockcroft-Gault) 13.6 BUN/Creatinine Ratio 5 (6-20) Glucose Level 242mg/dL (70-99) Calcium Level 8.8mg/dL (8.5-10.1) Total Bilirubin 0.4mg/dL (0.2-1.0) Aspartate Amino Transf (AST/SGOT) 16U/L (15-37) Alanine Aminotransferase (ALT/SGPT) 20U/L (14-59) Alkaline Phosphatase 64U/L (46-116) Creatine Kinase 40U/L (26-192) Creatine Kinase MB (Mass) 1.4ng/mL (0.0-3.6) Creatine Kinase MB Relative Index 3.5% (0-4) Troponin I Quantitative < 0.017ng/mL (0.000-0.055) Total Protein 7.9g/dL (6.4-8.2) Albumin 3.2g/dL (3.4-5.0) Albumin/Globulin Ratio 0.7 (1.0-1.7) Glucose (Fingerstick) 234mg/dL (70-99) Test 10/18/16 03:32 10/18/16 07:14 White Blood Count 6.2x10^3/uL (4.0-11.0) Red Blood Count 3.56x10^6/uL (3.50-5.40) Hemoglobin 10.4g/dL (12.0-15.5) Hematocrit 31.9% (36.0-47.0) Mean Corpuscular Volume 90fL (79-100) Mean Corpuscular Hemoglobin 29pg (25-35) Mean Corpuscular Hemoglobin Concent 33g/dL (31-37) Red Cell Distribution Width 13.3% (11.5-14.5) Platelet Count 195x10^3/uL (140-400) Neutrophils (%) (Auto) 52% (31-73) Lymphocytes (%) (Auto) 34% (24-48) Monocytes (%) (Auto) 10% (0-9) Eosinophils (%) (Auto) 4% (0-3) Basophils (%) (Auto) 0% (0-3) Neutrophils # (Auto) 3.2x10^3uL (1.8-7.7) Lymphocytes # (Auto) 2.1x10^3/uL (1.0-4.8) Monocytes # (Auto) 0.6x10^3/uL (0.0-1.1) Eosinophils # (Auto) 0.2x10^3/uL (0.0-0.7) Basophils # (Auto) 0.0x10^3/uL (0.0-0.2) Sodium Level 140mmol/L (136-145) Potassium Level 4.5mmol/L (3.5-5.1) Chloride Level 101mmol/L (98-107) Carbon Dioxide Level 32mmol/L (21-32) Anion Gap 7 (6-14) Blood Urea Nitrogen 28mg/dL (7-20) Creatinine 5.4mg/dL (0.6-1.0) Estimated GFR (Cockcroft-Gault) 9.3 Glucose Level 160mg/dL (70-99) Calcium Level 8.8mg/dL (8.5-10.1) Glucose (Fingerstick) 132mg/dL (70-99) Assessment/Plan Assessment/Plan IMP ANEMIA ESRD INFLUENZA A PLAN HD TOMORROW KEM DUNN MD Oct 18, 2016 11:47
[2016-10-18] MEDS ORDERED: DIPHENHYDRAMINE HCL 25 MG CAPSULE PO PRN (12:00)
[2016-10-18] MEDS ORDERED: HYDROCODONE/APAP 5/325MG TABLET. PO PRN (12:00)
[2016-10-18] MEDS: ALBUTEROL SULFATE 2.5 MG/3 ML NEBU. NEB SCH ×3 (12:03→18:01)
[2016-10-18] MEDS: ACETAMINOPHEN 325 MG TABLET. PO PRN ×2 (12:18→21:23)
--- NOTE | 2016-10-18 13:30 | PDOC2 ---
CARDIAC CONSULT DATE OF CONSULT Date of Consult DATE: 10/18/16 TIME: 13:14 REASON FOR CONSULT Reason for Consult: Chest Pain REFERRING PHYSICIAN Referring Physician: Renzo Mccain APRN SOURCE Source: Chart review, Patient HISTORY OF PRESENT ILLNESS HISTORY OF PRESENT ILLNESS This is is 76 yo female who presented with complaints of shortness of breath, which has been ongoing for the last couple of week. Has had cough, productive of green sputum, over the last couple of weeks. Associated with fatigue, body aches, and subjective fevers. Developed chest pain a couple of days ago while in HD. Describes as tightness. Located in her central chest. Denies pain with inspiration, but reports that is is difficult to take a deep breath. Denies any associated palpitations, dizziness, diaphoresis, or nausea/vomiting. Pain has been intermittent over the last couple days. Denies any specific exacerbating or relieving factors, but does reports coughing seems to affect it. Presently CP free. Nasal swab positive for Influenza A upon admission. Reports having stress test and echocardiogram at [facility] 2-3 years ago. 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 PAST MEDICAL HISTORY Cardiovascular: CHF (diastolic ), HTN, Hyperlipidemia Pulmonary: Pulmonary embolus CENTRAL NERVOUS SYSTEM: CVA, Periperal neuropathy GI: GERD Heme/Onc: Anemia NOS, Other (PE/DVT) Hepatobiliary: No pertinent hx Psych: Anxiety Musculoskeletal: Osteoarthritis Infectious disease: No pertinent hx ENT: No pertinent hx Renal/: Chronic renal failure (ESRD on HD) Endocrine: Diabetes, Hypothyroidism PAST SURGICAL HISTORY Past Surgical History: Appendectomy, Cholecystectomy, Tubal Ligation, Other ( RUE AV fistula ) FAMILY HISTORY Family History: Cancer, Coronary Artery Disease, Diabetes SOCIAL HISTORY ALCOHOL: none Drugs: None Lives: with Family CURRENT MEDICATIONS CURRENT MEDICATIONS Current Medications Medications (Trade) Dose Ordered Sig/Pat Route PRN Reason Start Time Stop Time Status Last Admin Dose Admin Oseltamivir Phosphate (Tamiflu) 30 mg 1X ONCE PO 10/17/16 16:20 10/17/16 16:22 DC 10/17/16 16:32 Acetaminophen (Tylenol) 650 mg PRN Q4HRS PRN PO FEVER 10/17/16 17:30 10/18/16 06:17 DC 10/17/16 22:05 Oseltamivir Phosphate (Tamiflu) 30 mg BID PO 10/18/16 08:00 10/23/16 07:59 10/18/16 08:26 Amlodipine Besylate (Norvasc) 10 mg DAILY PO 10/18/16 09:00 10/18/16 08:27 Insulin Aspart (Novolog) 8 units BIDACBL SQ 10/18/16 07:30 10/18/16 08:30 Carvedilol (Coreg) 12.5 mg DAILYWBKFT PO 10/18/16 08:00 10/18/16 12:00 DC 10/18/16 08:29 Citalopram Hydrobromide (Celexa) 10 mg DAILY PO 10/18/16 09:00 10/18/16 08:26 Ferrous Sulfate (Feosol) 325 mg DAILY PO 10/18/16 09:00 10/18/16 12:00 DC 10/18/16 08:28 Furosemide (Lasix) 40 mg DAILY PO 10/18/16 09:00 10/18/16 12:00 DC 10/18/16 08:26 Glipizide (Glucotrol) 5 mg DAILY PO 10/18/16 09:00 10/18/16 12:00 DC 10/18/16 08:27 Hydralazine HCl (Apresoline) 50 mg DAILY PO 10/18/16 09:00 10/18/16 12:00 DC 10/18/16 08:28 Isosorbide Mononitrate (Imdur) 60 mg DAILY PO 10/18/16 09:00 10/18/16 08:28 Levothyroxine Sodium (Synthroid) 75 mcg DAILY07 PO 10/18/16 07:00 10/18/16 12:00 DC 10/18/16 06:17 Lactobacillus Acidophilus (Bacid, Elizabeth-Bid) 2 tab DAILY PO 10/18/16 09:00 10/18/16 12:00 DC 10/18/16 08:29 Acetaminophen (Tylenol) 650 mg PRN Q4HRS PRN PO FEVER 10/18/16 10:15 10/18/16 12:18 Albuterol Sulfate (Ventolin Neb Soln) 2.5 mg RTQID NEB 10/18/16 12:00 10/18/16 12:03 ALLERGIES ALLERGIES: Coded Allergies: morphine (Verified Allergy, Severe, 06/12/14) codeine (Verified Allergy, Intermediate, HIVES, 06/12/14) ROS Review of System 14 point ROS conducted with pertinent positives noted above in HPI. PHYSICAL EXAM General: Alert, Oriented X3, Cooperative, No acute distress HEENT: Atraumatic, Mucous membr. moist/pink Lungs: Other (diminished bases, expiratory wheeze) Heart: Regular rate, Normal S1, Normal S2, Other (central chest tender upon palpation. not on tele. distant hrt tones ) Abdomen: Soft, No tenderness Extremities: No edema, Normal pulses Skin: No breakdown, No significant lesion Neuro: Normal speech, Sensation intact Psych/Mental Status: Mental status NL, Mood NL MUSCULOSKELETAL: Osteoarthritic changes both hands VITALS VITALS Vital Signs Date Time Temp Pulse Resp B/P Pulse Ox O2 Delivery O2 Flow Rate FiO2 10/18/16 12:08 96 Room Air 10/18/16 10:45 97.9 58 20 82/39 97.9 LABS Lab: Laboratory Tests Test 10/17/16 15:30 10/17/16 15:40 10/17/16 16:02 10/17/16 21:21 White Blood Count 5.1x10^3/uL (4.0-11.0) Red Blood Count 3.87x10^6/uL (3.50-5.40) Hemoglobin 11.5g/dL (12.0-15.5) Hematocrit 34.1% (36.0-47.0) Mean Corpuscular Volume 88fL (79-100) Mean Corpuscular Hemoglobin 30pg (25-35) Mean Corpuscular Hemoglobin Concent 34g/dL (31-37) Red Cell Distribution Width 14.0% (11.5-14.5) Platelet Count 177x10^3/uL (140-400) Neutrophils (%) (Auto) 64% (31-73) Lymphocytes (%) (Auto) 25% (24-48) Monocytes (%) (Auto) 8% (0-9) Eosinophils (%) (Auto) 3% (0-3) Basophils (%) (Auto) 0% (0-3) Neutrophils # (Auto) 3.2x10^3uL (1.8-7.7) Lymphocytes # (Auto) 1.2x10^3/uL (1.0-4.8) Monocytes # (Auto) 0.4x10^3/uL (0.0-1.1) Eosinophils # (Auto) 0.2x10^3/uL (0.0-0.7) Basophils # (Auto) 0.0x10^3/uL (0.0-0.2) Influenza Type A Antigen Positive (NEGATIVE) Influenza Type B Antigen Negative (NEGATIVE) Sodium Level 142mmol/L (136-145) Potassium Level 3.7mmol/L (3.5-5.1) Chloride Level 101mmol/L (98-107) Carbon Dioxide Level 33mmol/L (21-32) Anion Gap 8 (6-14) Blood Urea Nitrogen 20mg/dL (7-20) Creatinine 3.9mg/dL (0.6-1.0) Estimated GFR (Cockcroft-Gault) 13.6 BUN/Creatinine Ratio 5 (6-20) Glucose Level 242mg/dL (70-99) Calcium Level 8.8mg/dL (8.5-10.1) Total Bilirubin 0.4mg/dL (0.2-1.0) Aspartate Amino Transf (AST/SGOT) 16U/L (15-37) Alanine Aminotransferase (ALT/SGPT) 20U/L (14-59) Alkaline Phosphatase 64U/L (46-116) Creatine Kinase 40U/L (26-192) Creatine Kinase MB (Mass) 1.4ng/mL (0.0-3.6) Creatine Kinase MB Relative Index 3.5% (0-4) Troponin I Quantitative < 0.017ng/mL (0.000-0.055) Total Protein 7.9g/dL (6.4-8.2) Albumin 3.2g/dL (3.4-5.0) Albumin/Globulin Ratio 0.7 (1.0-1.7) Glucose (Fingerstick) 234mg/dL (70-99) Test 10/18/16 03:32 10/18/16 07:14 10/18/16 11:43 White Blood Count 6.2x10^3/uL (4.0-11.0) Red Blood Count 3.56x10^6/uL (3.50-5.40) Hemoglobin 10.4g/dL (12.0-15.5) Hematocrit 31.9% (36.0-47.0) Mean Corpuscular Volume 90fL (79-100) Mean Corpuscular Hemoglobin 29pg (25-35) Mean Corpuscular Hemoglobin Concent 33g/dL (31-37) Red Cell Distribution Width 13.3% (11.5-14.5) Platelet Count 195x10^3/uL (140-400) Neutrophils (%) (Auto) 52% (31-73) Lymphocytes (%) (Auto) 34% (24-48) Monocytes (%) (Auto) 10% (0-9) Eosinophils (%) (Auto) 4% (0-3) Basophils (%) (Auto) 0% (0-3) Neutrophils # (Auto) 3.2x10^3uL (1.8-7.7) Lymphocytes # (Auto) 2.1x10^3/uL (1.0-4.8) Monocytes # (Auto) 0.6x10^3/uL (0.0-1.1) Eosinophils # (Auto) 0.2x10^3/uL (0.0-0.7) Basophils # (Auto) 0.0x10^3/uL (0.0-0.2) Sodium Level 140mmol/L (136-145) Potassium Level 4.5mmol/L (3.5-5.1) Chloride Level 101mmol/L (98-107) Carbon Dioxide Level 32mmol/L (21-32) Anion Gap 7 (6-14) Blood Urea Nitrogen 28mg/dL (7-20) Creatinine 5.4mg/dL (0.6-1.0) Estimated GFR (Cockcroft-Gault) 9.3 Glucose Level 160mg/dL (70-99) Calcium Level 8.8mg/dL (8.5-10.1) Glucose (Fingerstick) 132mg/dL (70-99) 110mg/dL (70-99) ECHOCARDIOGRAM ECHOCARDIOGRAM <Conclusion> The left ventricle is normal size. There is mild concentric left ventricular hypertrophy. The left ventricular systolic function is normal and the ejection fraction is within normal range. The Ejection Fraction is 55%. Tissue Doppler imaging reveals abnormal left ventricular diastolic dysfunction. The aortic valve is normal in structure and function. Doppler and Color Flow revealed no significant aortic regurgitation. The mitral valve is normal in structure and function. Doppler and Color-flow revealed trace mitral regurgitation. The tricuspid valve is normal in structure and function. Doppler and Color Flow revealed no tricuspid valve regurgitation noted. DATE: 04/09/14 1451 ASSESSMENT/PLAN ASSESSMENT/PLAN 1. Chest pain, atypical 2. Influenza A; on Tamiflu 3. Hypertension; low-normotensive 4. Hyperlipidemia 5. Diabetes, II 6. Hypothyroidism 7. ESRD on HD 8. Anemia Recommendations Telemetry monitoring ECASA. Check lipids- resume statin Trend troponin Check echo to assess LV function/presence of WMA Suspect pain is MSK in origin, 2/2 persistent coughing/influenza, as central chest is quite tender with palpation Given risk factors, could consider for MPI when acte illness is resolved; possibly as an outpatient. Monitor BP trends; consider addition of low-dose BB Fluid management in HD per nephrology Management of DM and hypothyroidism per PCP. Supportive care Further recommendations pending diagnostics Problems: PAUL BRASHER APRN Oct 18, 2016 13:30
[2016-10-18] MEDS: CALCIUM ACETATE 667 MG CAPSULE PO SCH ×2 (13:43→16:32)
[2016-10-18] MEDS: SEVELAMER CARBONATE 800 MG TABLET. PO SCH ×2 (13:43→16:31)
[2016-10-18] MEDS: FOLIC/VIT B COMP W-C (RENAL) TABLET. PO SCH (13:43)
--- NOTE | 2016-10-18 16:26 | CARD ---
APPROVED REPORT EXAM: Two-dimensional and M-mode echocardiogram with Doppler and color Doppler. Other Information Quality : LimitedHR: 60bpm Rhythm : NSR INDICATION Chest Pain RISK FACTORS Obesity 2D DIMENSIONS RVDd3.0 (2.9-3.5cm)Left Atrium(2D)3.0 (1.6-4.0cm) IVSd1.0 (0.7-1.1cm)Aortic Root(2D)3.2 (2.0-3.7cm) LVDd4.2 (3.9-5.9cm)LVOT Diameter2.0 (1.8-2.4cm) PWd1.0 (0.7-1.1cm)LVDs2.8 (2.5-4.0cm) FS (%) 33.7 %SV50.4 ml LVEF(%)62.9 (>50%) Aortic Valve AoV Peak Stephen.201.5cm/sAoV VTI42.7cm AO Peak GR.16.2mmHgLVOT Peak Stephen.91.5cm/s AO Mean GR.9mmHgAVA (VMAX)1.49cm2 Mitral Valve MV E Iqioznqx89.9cm/sMV E Peak Gr.7mmHg MV DECEL [id number] A Fdmrmkaq807.8cm/s MV E Mean Gr.2mmHgE/A Ratio0.7 MV A [id number] Pulmonary Valve PV Peak Eptxbxhi759.1cm/s Tricuspid Valve TR P. Ltxvanhu148xz/sTR Peak Gr.28mmHg Pulmonary Vein S1 Ithbjedh55.0cm/sD2 Dnaihcvk43.5cm/s PVa cfsoathh38zqfz LEFT VENTRICLE The left ventricle is normal size. There is normal left ventricular wall thickness. The left ventricu lar systolic function is normal. The Ejection Fraction is 60-65%. There is normal LV segmental wall m otion. Transmitral Doppler flow pattern is Grade I-abnormal relaxation pattern. RIGHT VENTRICLE The right ventricle is normal size. There is normal right ventricular wall thickness. The right ventr icular systolic function is normal. ATRIA The left atrium size is normal. The right atrium size is normal. The interatrial septum is intact wit h no evidence for an atrial septal defect or patent foramen ovale as noted on 2-D or Doppler imaging. AORTIC VALVE The aortic valve is mildly sclerotic. Doppler and Color Flow revealed no significant aortic regurgita tion. There is no significant aortic valvular stenosis. MITRAL VALVE The mitral valve leaflets are thickened. There is no evidence of mitral valve prolapse. There is no m itral valve stenosis. Doppler and Color Flow revealed no mitral valve regurgitation noted. TRICUSPID VALVE Doppler and Color Flow revealed trace tricuspid regurgitation. The pulmonary artery systolic pressure is estimated at 31 mmHg. There is mild pulmonary hypertension. PULMONIC VALVE The pulmonary valve is normal in structure and function. Doppler and Color Flow revealed no pulmonic valvular regurgitation. There is no pulmonic valvular stenosis. GREAT VESSELS The aortic root is normal in size. The ascending aorta is normal in size. The pulmonary artery is nor mal. The IVC is normal in size and collapses >50% with inspiration. PERICARDIAL EFFUSION There is no evidence of significant pericardial effusion. Critical Notification Critical Value: No <Conclusion> The left ventricular systolic function is normal. The Ejection Fraction is 60-65%. There is normal LV segmental wall motion. Transmitral Doppler flow pattern is Grade I-abnormal relaxation pattern. Trace tricuspid regurgitation. The pulmonary artery systolic pressure is estimated at 31 mmHg. There is no evidence of significant pericardial effusion.
[2016-10-18] MEDS: ASPIRIN ENTERIC COATED 81 MG TABLET.DR. PO SCH (16:32)
[2016-10-18] MEDS ORDERED: CLONIDINE HCL 0.1 MG TABLET PO SCH (21:00)
[2016-10-18] MEDS: HYDRALAZINE 50 MG TABLET PO SCH (21:00)
[2016-10-18] MEDS ORDERED: ATORVASTATIN CALCIUM 40 MG TABLET. PO SCH (21:00)
[2016-10-18] MEDS: CETIRIZINE HCL 10 MG TABLET. PO SCH (21:19)
[2016-10-19 03:00] VITALS: BP 111/41
[2016-10-19 06:26] LABS: CALCIUM 9.5 mg/dL (8.5-10.1); CREATININE 6.9 mg/dL (0.6-1.0); POTASSIUM 4.7 mmol/L (3.5-5.1)
[2016-10-19 06:36] LABS: CHOLESTEROL/HDL RATIO 3.2
[2016-10-19 06:49] LABS: HEMATOCRIT 31.6 % (36.0-47.0); HEMOGLOBIN 10.3 g/dL (12.0-15.5); RED BLOOD COUNT 3.48 x10^6/uL (3.50-5.40); RED CELL DISTRIBUTION WIDTH 13.8 % (11.5-14.5); WHITE BLOOD COUNT 5.8 x10^3/uL (4.0-11.0)
[2016-10-19 07:00] VITALS: BP 106/38
[2016-10-19] MEDS ORDERED: LEVOTHYROXINE 100 MCG TABLET PO SCH (07:00)
[2016-10-19] MEDS ORDERED: AMLODIPINE BESYLATE 10 MG TABLET. ONE (07:47)
[2016-10-19] MEDS: ALBUTEROL SULFATE 2.5 MG/3 ML NEBU. NEB SCH ×4 (07:59→20:00)
[2016-10-19] MEDS: CITALOPRAM 10 MG TABLET. PO SCH (08:36)
[2016-10-19] MEDS: CALCIUM ACETATE 667 MG CAPSULE PO SCH ×3 (08:36→16:34)
[2016-10-19] MEDS: AMLODIPINE BESYLATE 10 MG TABLET PO SCH (08:36)
[2016-10-19] MEDS: ASPIRIN ENTERIC COATED 81 MG TABLET.DR. PO SCH (08:37)
[2016-10-19] MEDS: ISOSORBIDE MONONITRATE ER 60 MG TAB.ER.24H PO SCH (08:37)
[2016-10-19] MEDS: HYDRALAZINE 50 MG TABLET PO SCH ×2 (08:37→20:20)
[2016-10-19] MEDS ORDERED: OSELTAMIVIR 30 MG CAPSULE PO SCH (09:00)
[2016-10-19] MEDS ORDERED: FOLIC/VIT B COMP W-C (RENAL) TABLET. ONE (09:48)
[2016-10-19] MEDS: SEVELAMER CARBONATE 800 MG TABLET. PO SCH ×3 (09:51→16:34)
[2016-10-19] MEDS: FOLIC/VIT B COMP W-C (RENAL) TABLET. PO SCH (09:51)
[2016-10-19] MEDS: INSULIN ASPART 300 UNITS/3 ML INSULN.PEN SQ SCH ×3 (09:58→16:34)
--- NOTE | 2016-10-19 10:17 | PDOC ---
TIMMYHerveMAICO GARCÍA VOCATIONAL TEACHER 10/19/16 1017: IM PROGRESS NOTES- Subjective Subjective doing okay, feeling better Objective Objective alert no distress Vitals Vital Signs Date Time Temp Pulse Resp B/P Pulse Ox O2 Delivery O2 Flow Rate FiO2 10/19/16 08:37 55 111/41 10/19/16 08:00 98 Room Air 10/19/16 07:00 98.6 16 98.6 Input & Output Intake and Output 10/19/16 07:00 Intake Total 1920 ml Balance 1920 ml Intake Oral 1920 ml # Voids 5 # Bowel Movements 3 Physical Exam Physical Exam General appearance - alert,well appearing, and in no distress Mental Status - alert, oriented to person, place, and time, affect appropriate to mood Head - normal Chest - clear to auscultation, no wheezes, rales or rhonchi, symmetric air entry Heart - S1 and S2 normal Abdomen - soft, nontender, nondistended, BS + Neurological - no acute focal neurological deficit noted Musculoskeletal - no muscular tenderness noted Extremities - no pedal edema Skin - warm and dry Labs Laboratory Tests Test 10/17/16 15:30 10/17/16 15:40 10/17/16 16:02 10/17/16 21:21 White Blood Count 5.1x10^3/uL (4.0-11.0) Red Blood Count 3.87x10^6/uL (3.50-5.40) Hemoglobin 11.5g/dL (12.0-15.5) Hematocrit 34.1% (36.0-47.0) Mean Corpuscular Volume 88fL (79-100) Mean Corpuscular Hemoglobin 30pg (25-35) Mean Corpuscular Hemoglobin Concent 34g/dL (31-37) Red Cell Distribution Width 14.0% (11.5-14.5) Platelet Count 177x10^3/uL (140-400) Neutrophils (%) (Auto) 64% (31-73) Lymphocytes (%) (Auto) 25% (24-48) Monocytes (%) (Auto) 8% (0-9) Eosinophils (%) (Auto) 3% (0-3) Basophils (%) (Auto) 0% (0-3) Neutrophils # (Auto) 3.2x10^3uL (1.8-7.7) Lymphocytes # (Auto) 1.2x10^3/uL (1.0-4.8) Monocytes # (Auto) 0.4x10^3/uL (0.0-1.1) Eosinophils # (Auto) 0.2x10^3/uL (0.0-0.7) Basophils # (Auto) 0.0x10^3/uL (0.0-0.2) Influenza Type A Antigen Positive (NEGATIVE) Influenza Type B Antigen Negative (NEGATIVE) Sodium Level 142mmol/L (136-145) Potassium Level 3.7mmol/L (3.5-5.1) Chloride Level 101mmol/L (98-107) Carbon Dioxide Level 33mmol/L (21-32) Anion Gap 8 (6-14) Blood Urea Nitrogen 20mg/dL (7-20) Creatinine 3.9mg/dL (0.6-1.0) Estimated GFR (Cockcroft-Gault) 13.6 BUN/Creatinine Ratio 5 (6-20) Glucose Level 242mg/dL (70-99) Calcium Level 8.8mg/dL (8.5-10.1) Total Bilirubin 0.4mg/dL (0.2-1.0) Aspartate Amino Transf (AST/SGOT) 16U/L (15-37) Alanine Aminotransferase (ALT/SGPT) 20U/L (14-59) Alkaline Phosphatase 64U/L (46-116) Creatine Kinase 40U/L (26-192) Creatine Kinase MB (Mass) 1.4ng/mL (0.0-3.6) Creatine Kinase MB Relative Index 3.5% (0-4) Troponin I Quantitative < 0.017ng/mL (0.000-0.055) Total Protein 7.9g/dL (6.4-8.2) Albumin 3.2g/dL (3.4-5.0) Albumin/Globulin Ratio 0.7 (1.0-1.7) Glucose (Fingerstick) 234mg/dL (70-99) Test 10/18/16 03:32 10/18/16 07:14 10/18/16 11:43 10/18/16 17:24 White Blood Count 6.2x10^3/uL (4.0-11.0) Red Blood Count 3.56x10^6/uL (3.50-5.40) Hemoglobin 10.4g/dL (12.0-15.5) Hematocrit 31.9% (36.0-47.0) Mean Corpuscular Volume 90fL (79-100) Mean Corpuscular Hemoglobin 29pg (25-35) Mean Corpuscular Hemoglobin Concent 33g/dL (31-37) Red Cell Distribution Width 13.3% (11.5-14.5) Platelet Count 195x10^3/uL (140-400) Neutrophils (%) (Auto) 52% (31-73) Lymphocytes (%) (Auto) 34% (24-48) Monocytes (%) (Auto) 10% (0-9) Eosinophils (%) (Auto) 4% (0-3) Basophils (%) (Auto) 0% (0-3) Neutrophils # (Auto) 3.2x10^3uL (1.8-7.7) Lymphocytes # (Auto) 2.1x10^3/uL (1.0-4.8) Monocytes # (Auto) 0.6x10^3/uL (0.0-1.1) Eosinophils # (Auto) 0.2x10^3/uL (0.0-0.7) Basophils # (Auto) 0.0x10^3/uL (0.0-0.2) Sodium Level 140mmol/L (136-145) Potassium Level 4.5mmol/L (3.5-5.1) Chloride Level 101mmol/L (98-107) Carbon Dioxide Level 32mmol/L (21-32) Anion Gap 7 (6-14) Blood Urea Nitrogen 28mg/dL (7-20) Creatinine 5.4mg/dL (0.6-1.0) Estimated GFR (Cockcroft-Gault) 9.3 Glucose Level 160mg/dL (70-99) Calcium Level 8.8mg/dL (8.5-10.1) Glucose (Fingerstick) 132mg/dL (70-99) 110mg/dL (70-99) 136mg/dL (70-99) Test 10/18/16 18:15 10/18/16 21:05 10/19/16 05:30 10/19/16 08:23 Troponin I Quantitative < 0.017ng/mL (0.000-0.055) < 0.017ng/mL (0.000-0.055) Glucose (Fingerstick) 212mg/dL (70-99) 135mg/dL (70-99) White Blood Count 5.8x10^3/uL (4.0-11.0) Red Blood Count 3.48x10^6/uL (3.50-5.40) Hemoglobin 10.3g/dL (12.0-15.5) Hematocrit 31.6% (36.0-47.0) Mean Corpuscular Volume 91fL (79-100) Mean Corpuscular Hemoglobin 30pg (25-35) Mean Corpuscular Hemoglobin Concent 33g/dL (31-37) Red Cell Distribution Width 13.8% (11.5-14.5) Platelet Count 194x10^3/uL (140-400) Sodium Level 139mmol/L (136-145) Potassium Level 4.7mmol/L (3.5-5.1) Chloride Level 96mmol/L (98-107) Carbon Dioxide Level 30mmol/L (21-32) Anion Gap 13 (6-14) Blood Urea Nitrogen 41mg/dL (7-20) Creatinine 6.9mg/dL (0.6-1.0) Estimated GFR (Cockcroft-Gault) 7.0 Glucose Level 106mg/dL (70-99) Calcium Level 9.5mg/dL (8.5-10.1) Triglycerides Level 174mg/dL (0-150) Cholesterol Level 132mg/dL (0-200) LDL Cholesterol, Calculated 56mg/dL (0-100) VLDL Cholesterol, Calculated 35mg/dL (0-40) HDL Cholesterol 41mg/dL (40-60) Cholesterol/HDL Ratio 3.2 Laboratory Tests Test 10/18/16 11:43 10/18/16 17:24 10/18/16 18:15 10/18/16 21:05 Glucose (Fingerstick) 110mg/dL (70-99) 136mg/dL (70-99) 212mg/dL (70-99) Troponin I Quantitative < 0.017ng/mL (0.000-0.055) Test 10/19/16 05:30 10/19/16 08:23 White Blood Count 5.8x10^3/uL (4.0-11.0) Red Blood Count 3.48x10^6/uL (3.50-5.40) Hemoglobin 10.3g/dL (12.0-15.5) Hematocrit 31.6% (36.0-47.0) Mean Corpuscular Volume 91fL (79-100) Mean Corpuscular Hemoglobin 30pg (25-35) Mean Corpuscular Hemoglobin Concent 33g/dL (31-37) Red Cell Distribution Width 13.8% (11.5-14.5) Platelet Count 194x10^3/uL (140-400) Sodium Level 139mmol/L (136-145) Potassium Level 4.7mmol/L (3.5-5.1) Chloride Level 96mmol/L (98-107) Carbon Dioxide Level 30mmol/L (21-32) Anion Gap 13 (6-14) Blood Urea Nitrogen 41mg/dL (7-20) Creatinine 6.9mg/dL (0.6-1.0) Estimated GFR (Cockcroft-Gault) 7.0 Glucose Level 106mg/dL (70-99) Calcium Level 9.5mg/dL (8.5-10.1) Troponin I Quantitative < 0.017ng/mL (0.000-0.055) Triglycerides Level 174mg/dL (0-150) Cholesterol Level 132mg/dL (0-200) LDL Cholesterol, Calculated 56mg/dL (0-100) VLDL Cholesterol, Calculated 35mg/dL (0-40) HDL Cholesterol 41mg/dL (40-60) Cholesterol/HDL Ratio 3.2 Glucose (Fingerstick) 135mg/dL (70-99) Meds Current Medications Acetaminophen (Tylenol) 650 mg PRN Q4HRS PRN PO FEVER Last administered on 10/18 21:23; Start 10/18/16 at 10:15 Acetaminophen/ Hydrocodone Bitart (Lortab 5/325) 1 tab PRN Q6HRS PRN PO PAIN; Start 10/18/16 at 12:00 Albuterol Sulfate (Ventolin Neb Soln) 2.5 mg RTQID NEB Last administered on 07:59; Start 10/18/16 at 12:00 Amlodipine Besylate (Norvasc) 10 mg STK-MED ONCE .ROUTE ; Start 10/19/16 at 07: 47; Stop 10/19/16 at 07:48; Status DC Aspirin (Ecotrin) 81 mg DAILYWBKFT PO Last administered on 10/19/16 08:37; Start 10/18/16 at 14:30 Atorvastatin Calcium (Lipitor) 40 mg QHS PO ; Start 10/18/16 at 21:00; Stop at 21:00; Status DC Calcium Acetate (Phoslo) 1,334 mg TIDWMEALS PO Last administered on 10/19/16 08:36; Start 10/18/16 at 12:00 Cetirizine HCl (Zyrtec) 5 mg QHS PO Last administered on 10/18/16 21:19; Start 10/18/16 at 21:00 Clonidine HCl (Catapres) 0.1 mg QHS PO ; Start 10/18/16 at 21:00; Stop 10/18/16 at 21:00; Status DC Darbepoetin Steve (Aranesp) 60 mcg Fr SQ ; Start 10/19/16 at 21:00 Diphenhydramine HCl (Benadryl) 12.5 mg PRN Q6HRS PRN PO ITCHING; Start at 12:00 Guaifenesin (Robitussin Dm) 10 ml PRN Q6HRS PRN PO COUGH; Start 10/18/16 at 10: 15 Hydralazine HCl (Apresoline) 50 mg BID PO Last administered on 10/19/16 08:37 ; Start 10/18/16 at 21:00 Hydroxychloroquine Sulfate (Plaquenil) 200 mg BID PO ; Start 10/18/16 at 11:00; Stop 10/18/16 at 12:00; Status DC Insulin Aspart (Novolog) 10 units DAILYWSUP SQ ; Start 10/18/16 at 17:00 Levothyroxine Sodium (Synthroid) 100 mcg DAILY07 PO Last administered on 06:05; Start 10/19/16 at 07:00 Oseltamivir Phosphate (Tamiflu) 30 mg DAILY PO Last administered on 10/19/16 08:38; Start 10/19/16 at 09:00; Stop 10/22/16 at 07:59 Sevelamer Carbonate (Renvela) 800 mg TIDWMEALS PO Last administered on 09:51; Start 10/18/16 at 12:00 Vitamin B Complex/ Vitamin C (Nephro-Gissel) 1 tab DAILY PO Last administered on 10/19/16 09:51; Start 10/18/16 at 12:00 Vitamin B Complex/ Vitamin C (Thuy-Gissel) 1 tab STK-MED ONCE .ROUTE ; Start 10/19 at 09:48; Stop 10/19/16 at 09:49; Status DC Assessment Assessment 1. influenzae A no sepsis 2. End-stage renal disease, on hemodialysis. 3. Congestive heart failure diastolic EF 55% stable 4. Diabetes mellitus with nephropathy and neuropathy. 5. 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 6. Essential tremors. 7. Status post appendectomy and cholecystectomy. 8. Anemia chronic disease renal /Fe def 9. Anxiety. 10. Depression. 11. Hypothyroidism 12. moderate chronic PCL malnutrition 13. severe weakness and debility 14. lung nodule x2 stable per comparison CT chest to previous CT Plan: influenzae A nebulizer Tamiflu x 5d CP CE negative, EKG negative suspect r/t flu consult cardiology check TSH/T4-hypothyroid DM II Home med: levemir 6unit at hs, Novolog 8-8-10 tid ac FSBS/ssi Glucose 106-212 check Hba1c anemia Fe deficiency FE Admit Hgb 11.5 10/19 10.3 hyperlipidemia atorvastin 40 daily check lipids ESRD renal consult continue HD 3x/week in patient For more details regarding further plans, please refer to the orders. DC home today. Outpatient stress test. Plan Plan For more details regarding further plans, please refer to the orders. SHADI DUVALL MD 10/19/16 1044: IM PROGRESS NOTES- Assessment Assessment see in office in 5 days.improving. The patient was seen and examined by me. Chart reviewed and plan of care formulated. Discussed with, reviewed and agree with FOLDER OPERATOR's notes, plan of care and orders with modifications as necessary. Discharge Management - 35 minutes. MAICO IQBAL APRN Oct 19, 2016 10:17 SHADI DUVALL MD Oct 19, 2016 10:44
--- NOTE | 2016-10-19 10:19 | DISCH ---
DISCHARGE INSTRUCTIONS Condition on Discharge Condition on Discharge: Stable Activity After Discharge Activity Instructions for Disc: Activity as tolerated Diet after Discharge Diet after Discharge: Cardiac (renal dialysis; ADA ) Checks after Discharge Checks after discharge: Check blood sugar, ac/hs DC Comment: continue hemodiaylsis 3 times weekly Contacting the DRRiley after DC Call your doctor for: Concerns you may have Follow-Up Follow up with: Dr. Hart on Saturday next week Follow Up With: Cardiology per their instructions MAICO IQBAL APRN Oct 19, 2016 10:19
[2016-10-19] MEDS ORDERED: ASPI81TA9 PO (10:24)
[2016-10-19] MEDS ORDERED: DIPH25CA58 PO (10:24)
[2016-10-19] MEDS ORDERED: HYDR-2869 PO (10:24)
[2016-10-19] MEDS ORDERED: FOLI0.8T3 PO (10:24)
[2016-10-19] MEDS ORDERED: LEVO100T PO (10:24)
[2016-10-19] MEDS ORDERED: OSEL30CA PO (10:24)
[2016-10-19] MEDS ORDERED: Calcium Acetate PO (10:24)
[2016-10-19] MEDS ORDERED: SEVE800T9 PO (10:24)
[2016-10-19 10:46] LABS: FREE T4 1.28 ng/dL (0.76-1.46)
[2016-10-19 11:50] VITALS: BP 126/37
--- NOTE | 2016-10-19 12:17 | PDOC ---
Renal-Progress Notes Subjective Notes Notes HEADACHE IS RESOLVED History of Present Illness Hx of present illness BETTER Vitals Vitals Vital Signs Date Time Temp Pulse Resp B/P Pulse Ox O2 Delivery O2 Flow Rate FiO2 10/19/16 12:11 98 Room Air 10/19/16 08:37 55 111/41 10/19/16 07:00 98.6 16 98.6 Weight Weight [ ] I.O. Intake and Output Intake and Output 10/19/16 07:00 Intake Total 1920 ml Balance 1920 ml Intake Oral 1920 ml # Voids 5 # Bowel Movements 3 Labs Labs Laboratory Tests Test 10/18/16 17:24 10/18/16 18:15 10/18/16 21:05 10/19/16 05:30 Glucose (Fingerstick) 136mg/dL (70-99) 212mg/dL (70-99) Troponin I Quantitative < 0.017ng/mL (0.000-0.055) < 0.017ng/mL (0.000-0.055) White Blood Count 5.8x10^3/uL (4.0-11.0) Red Blood Count 3.48x10^6/uL (3.50-5.40) Hemoglobin 10.3g/dL (12.0-15.5) Hematocrit 31.6% (36.0-47.0) Mean Corpuscular Volume 91fL (79-100) Mean Corpuscular Hemoglobin 30pg (25-35) Mean Corpuscular Hemoglobin Concent 33g/dL (31-37) Red Cell Distribution Width 13.8% (11.5-14.5) Platelet Count 194x10^3/uL (140-400) Sodium Level 139mmol/L (136-145) Potassium Level 4.7mmol/L (3.5-5.1) Chloride Level 96mmol/L (98-107) Carbon Dioxide Level 30mmol/L (21-32) Anion Gap 13 (6-14) Blood Urea Nitrogen 41mg/dL (7-20) Creatinine 6.9mg/dL (0.6-1.0) Estimated GFR (Cockcroft-Gault) 7.0 Glucose Level 106mg/dL (70-99) Calcium Level 9.5mg/dL (8.5-10.1) Triglycerides Level 174mg/dL (0-150) Cholesterol Level 132mg/dL (0-200) LDL Cholesterol, Calculated 56mg/dL (0-100) VLDL Cholesterol, Calculated 35mg/dL (0-40) HDL Cholesterol 41mg/dL (40-60) Cholesterol/HDL Ratio 3.2 Thyroid Stimulating Hormone (TSH) 3.734uIU/mL (0.358-3.74) Free Thyroxine 1.28ng/dL (0.76-1.46) Test 10/19/16 08:23 Glucose (Fingerstick) 135mg/dL (70-99) Review of Systems Constitutional: yes: no symptom reported Physical Exam General Appearance: no apparent distress Respiratory: bilateral CTA Heart: S1S2 Abdomen: soft, bowel sounds present Extremities: pulses present Neurology: alert Musculoskeletal: Osteoarthritis Assessment Assessment IMP ANEMIA ESRD INFLUENZA A PLAN TAMIFLU ARANESP HD TODAY UF TO DW WILL FOLLOW KEM FOSTER MD Oct 19, 2016 12:16
--- NOTE | 2016-10-19 12:22 | PDOC ---
CARDIO Progress Notes Date and Time Date of Service 10/19/16 Time of Evaluation 1015 Subjective Subjective: No Chest Pain, No shortness of breath, Other (tired/weak) Vitals Vitals Vital Signs Date Time Temp Pulse Resp B/P Pulse Ox O2 Delivery O2 Flow Rate FiO2 10/19/16 12:11 98 Room Air 10/19/16 08:37 55 111/41 10/19/16 07:00 98.6 16 98.6 Weight Weight [ ] Input and Output Intake and Output Intake and Output 10/19/16 07:00 Intake Total 1920 ml Balance 1920 ml Intake Oral 1920 ml # Voids 5 # Bowel Movements 3 Laboratory Labs Laboratory Tests Test 10/18/16 17:24 10/18/16 18:15 10/18/16 21:05 10/19/16 05:30 Glucose (Fingerstick) 136mg/dL (70-99) 212mg/dL (70-99) Troponin I Quantitative < 0.017ng/mL (0.000-0.055) < 0.017ng/mL (0.000-0.055) White Blood Count 5.8x10^3/uL (4.0-11.0) Red Blood Count 3.48x10^6/uL (3.50-5.40) Hemoglobin 10.3g/dL (12.0-15.5) Hematocrit 31.6% (36.0-47.0) Mean Corpuscular Volume 91fL (79-100) Mean Corpuscular Hemoglobin 30pg (25-35) Mean Corpuscular Hemoglobin Concent 33g/dL (31-37) Red Cell Distribution Width 13.8% (11.5-14.5) Platelet Count 194x10^3/uL (140-400) Sodium Level 139mmol/L (136-145) Potassium Level 4.7mmol/L (3.5-5.1) Chloride Level 96mmol/L (98-107) Carbon Dioxide Level 30mmol/L (21-32) Anion Gap 13 (6-14) Blood Urea Nitrogen 41mg/dL (7-20) Creatinine 6.9mg/dL (0.6-1.0) Estimated GFR (Cockcroft-Gault) 7.0 Glucose Level 106mg/dL (70-99) Calcium Level 9.5mg/dL (8.5-10.1) Triglycerides Level 174mg/dL (0-150) Cholesterol Level 132mg/dL (0-200) LDL Cholesterol, Calculated 56mg/dL (0-100) VLDL Cholesterol, Calculated 35mg/dL (0-40) HDL Cholesterol 41mg/dL (40-60) Cholesterol/HDL Ratio 3.2 Thyroid Stimulating Hormone (TSH) 3.734uIU/mL (0.358-3.74) Free Thyroxine 1.28ng/dL (0.76-1.46) Test 10/19/16 08:23 10/19/16 12:12 Glucose (Fingerstick) 135mg/dL (70-99) 164mg/dL (70-99) Review of Systems Constitutional: yes: no symptom reported Physical Exam HEENT: Neck Supple W Full Motion Chest: Symmetric LUNGS: Clear to Auscultation Heart: S1S2, RRR Abdomen: Soft N/T Extremities: 2+ Dorsalis Pedis, No Edema, Other (RUE fistula) Neurology: alert, oriented, follow commands Assessment Assessment 1. Chest pain, atypical (resolved) 2. Influenza A; on Tamiflu 3. Hypertension; low-normotensive 4. Hyperlipidemia; LDL= 56 5. Diabetes, II 6. Hypothyroidism 7. ESRD on HD 8. Anemia Recommendations Echo with preserved LV function- no WMA present Pain likely MSK in origin, 2/2 persistent coughing/influenza, given central chest tenderness Given risk factors, will plan for outpatient MPI when recovered from acute viral illness. No BB with bradycardia Fluid management in HD per nephrology Management of DM and hypothyroidism per PCP. Supportive care PAUL BRSAHER APRN Oct 19, 2016 12:22
[2016-10-19] MEDS ORDERED: IV NORMAL SALINE 1000ML BAG 1,000 ML IV PRN ×2 (15:25)
[2016-10-19] MEDS ORDERED: DIALYSIS PATIENT. MC PRN ×2 (15:30)
[2016-10-19 19:00] VITALS: BP 100/30
[2016-10-19 20:20] VITALS: BP 100/30
[2016-10-19] MEDS: CETIRIZINE HCL 10 MG TABLET. PO SCH (20:22)
[2016-10-19] MEDS ORDERED: DARBEPOETIN ALFA 60 MCG/0.3 ML DISP.SYRIN. SQ SCH (21:00)
--- NOTE | 2016-10-22 09:49 | PDOC3 ---
IM DISCHARGE SUMMARY Date of Admission Date of Admission Date of Admission: Oct 17, 2016 at 18:07 Date of Discharge Date of Discharge 10/19/16 Primary Diagnosis Primary Diagnosis 1. influenzae A no sepsis 2. End-stage renal disease, on hemodialysis. 3. Congestive heart failure diastolic EF 55% stable 4. Diabetes mellitus with nephropathy and neuropathy. 5. 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 6. Essential tremors. 7. Status post appendectomy and cholecystectomy. 8. Anemia chronic disease renal /Fe def 9. Anxiety. 10. Depression. 11. Hypothyroidism 12. moderate chronic PCL malnutrition 13. severe weakness and debility 14. lung nodule x2 stable per comparison CT chest to previous CT Problems: Consults Consults Cassius Werner MD, Dr. Procedures Procedures APPROVED REPORT EXAM: Two-dimensional and M-mode echocardiogram with Doppler and color Doppler. Other Information Quality : Limited HR: 60bpm Rhythm : NSR INDICATION Chest Pain RISK FACTORS Obesity 2D DIMENSIONS RVDd 3.0 (2.9-3.5cm) Left Atrium(2D) 3.0 (1.6-4.0cm) IVSd 1.0 (0.7-1.1cm) Aortic Root(2D) 3.2 (2.0-3.7cm) LVDd 4.2 (3.9-5.9cm) LVOT Diameter 2.0 (1.8-2.4cm) PWd 1.0 (0.7-1.1cm) LVDs 2.8 (2.5-4.0cm) FS (%) 33.7 % SV 50.4 ml LVEF(%) 62.9 (>50%) Aortic Valve AoV Peak Stephen. 201.5cm/s AoV VTI 42.7cm AO Peak GR. 16.2mmHg LVOT Peak Stephen. 91.5cm/s AO Mean GR. 9mmHg NIRAJ (VMAX) 1.49cm2 Mitral Valve MV E Velocity 88.9cm/s MV E Peak Gr. 7mmHg MV DECEL TIME 326ms MV A Velocity 121.8cm/s MV E Mean Gr. 2mmHg E/A Ratio 0.7 MV A Duration 152ms Pulmonary Valve PV Peak Velocity 148.1cm/s Tricuspid Valve TR P. Velocity 265cm/s TR Peak Gr. 28mmHg Pulmonary Vein S1 Velocity 46.0cm/s D2 Velocity 35.5cm/s PVa duration 69msec LEFT VENTRICLE The left ventricle is normal size. There is normal left ventricular wall thickness. The left ventricular systolic function is normal. The Ejection Fraction is 60-65%. There is normal LV segmental wall motion. Transmitral Doppler flow pattern is Grade I-abnormal relaxation pattern. RIGHT VENTRICLE The right ventricle is normal size. There is normal right ventricular wall thickness. The right ventricular systolic function is normal. ATRIA The left atrium size is normal. The right atrium size is normal. The interatrial septum is intact with no evidence for an atrial septal defect or patent foramen ovale as noted on 2-D or Doppler imaging. AORTIC VALVE The aortic valve is mildly sclerotic. Doppler and Color Flow revealed no significant aortic regurgitation. There is no significant aortic valvular stenosis. MITRAL VALVE The mitral valve leaflets are thickened. There is no evidence of mitral valve prolapse. There is no mitral valve stenosis. Doppler and Color Flow revealed no mitral valve regurgitation noted. TRICUSPID VALVE Doppler and Color Flow revealed trace tricuspid regurgitation. The pulmonary artery systolic pressure is estimated at 31 mmHg. There is mild pulmonary hypertension. PULMONIC VALVE The pulmonary valve is normal in structure and function. Doppler and Color Flow revealed no pulmonic valvular regurgitation. There is no pulmonic valvular stenosis. GREAT VESSELS The aortic root is normal in size. The ascending aorta is normal in size. The pulmonary artery is normal. The IVC is normal in size and collapses >50% with inspiration. PERICARDIAL EFFUSION There is no evidence of significant pericardial effusion. Critical Notification Critical Value: No <Conclusion> The left ventricular systolic function is normal. The Ejection Fraction is 60-65%. There is normal LV segmental wall motion. Transmitral Doppler flow pattern is Grade I-abnormal relaxation pattern. Trace tricuspid regurgitation. The pulmonary artery systolic pressure is estimated at 31 mmHg. There is no evidence of significant pericardial effusion. DICTATED and SIGNED BY: KANCHAN BRUMFIELD MD DATE: 10/18/16 1627 Labs Labs Laboratory Tests Test 10/19/16 12:12 10/19/16 18:16 Glucose (Fingerstick) 164mg/dL (70-99) 116mg/dL (70-99) Brief hospital course Brief hospital course This year old male who presented with influenzae A was admitted. The following is a summary of her treatment: Plan: influenzae A nebulizer Tamiflu x 5d CP CE negative, EKG negative suspect r/t flu consult cardiology check TSH/T4-hypothyroid DM II Home med: levemir 6unit at hs, Novolog 8-8-10 tid ac FSBS/ssi Glucose 106-212 check Hba1c anemia Fe deficiency FE Admit Hgb 11.5 10/19 10.3 hyperlipidemia atorvastin 40 daily check lipids ESRD renal consult continue HD 3x/week in patient DC home today. Outpatient stress test. For more details regarding the past history, family history, social history, surgical history and other details, please refer to History and Physical. Medications Medications reviewed and reconciled for discharge. Allergy Allergies Coded Allergies Type Severity Reaction Last Updated Verified morphine Allergy Severe 06/12/14 Yes codeine Allergy Intermediate HIVES 06/12/14 Yes Follow up in 5 days. DISPOSITION: Home Comments Discharge Management - 35 minutes. For other details please refer to discharge instructions MAICO IQBAL APRN Oct 22, 2016 09:49
== END 2016-10-19 20:30 | disposition home or self-care (01) | DRG 193 ==
LOC: ER 14:53 → 6 SOUTH 18:07
PROVIDERS: ADMIT Internal Medicine; ATTEND Internal Medicine
DX: J09.X2 Influenza due to identified novel influenza A virus with other respiratory manifestations (principal); N18.6 End stage renal disease; I50.30 Unspecified diastolic (congestive) heart failure; E44.0 Moderate protein-calorie malnutrition; E44.1 Mild protein-calorie malnutrition; I13.2 Hypertensive heart and chronic kidney disease with heart failure and with stage 5 chronic kidney disease, or end stage renal disease; I50.32 Chronic diastolic (congestive) heart failure; N25.81 Secondary hyperparathyroidism of renal origin; R53.1 Weakness; D63.8 Anemia in other chronic diseases classified elsewhere; E03.9 Hypothyroidism, unspecified; E11.22 Type 2 diabetes mellitus with diabetic chronic kidney disease; E11.21 Type 2 diabetes mellitus with diabetic nephropathy; E11.40 Type 2 diabetes mellitus with diabetic neuropathy, unspecified; E78.5 Hyperlipidemia, unspecified; F32.9 Major depressive disorder, single episode, unspecified; F41.9 Anxiety disorder, unspecified; G25.0 Essential tremor; I69.341 Monoplegia of lower limb following cerebral infarction affecting right dominant side; K21.9 Gastro-esophageal reflux disease without esophagitis; M06.9 Rheumatoid arthritis, unspecified; Z79.4 Long term (current) use of insulin; Z80.9 Family history of malignant neoplasm, unspecified; Z82.49 Family history of ischemic heart disease and other diseases of the circulatory system; Z83.3 Family history of diabetes mellitus; Z86.711 Personal history of pulmonary embolism; Z90.49 Acquired absence of other specified parts of digestive tract; Z99.2 Dependence on renal dialysis; M19.90 Unspecified osteoarthritis, unspecified site
CPT/HCPCS: 36415; 71010; 80048; 80053; 80061; 82553; 82947; 83036; 84439; 84443; 84484; 85027; 87804; 93005; 93306; 94250; 94640; 94760; J1815; 99285-25

== ENCOUNTER → 2017-01-03 | Outpatient (CLI) | payer MEDICARE, OTHER ==
[~2017-01-03] MED LIST changes: +ASPI-612 PO; +Calcium Acetate PO; +DIPH25CA58 PO; +FOLI0.8T3 PO; +LEVO100T PO; -LINA5TAB PO; +LINA5TAB4 PO; +OSEL30CA PO; +SEVE800T9 PO
--- NOTE | 2017-01-03 12:19 | KCIC ---
Bilateral digital screening mammograms: Reason for examination: Routine screening. Comparison is made to previous studies dated 03/24/2015 and 01/21/2014. Interpretation was made with the benefit of CAD. Examination is compromised by patient's positioning since the examination was performed with the patient in a wheelchair. The skin and nipples show no abnormalities. No abnormal lymph nodes are seen. The breast parenchyma is predominantly fatty. (Breast density: Category A.) There are no dominant masses, suspicious calcifications or architectural distortions. Benign calcifications which are predominantly vascular and secretory are again seen. Impression: No evidence of malignancy. Recommend routine screening. BI-RADS Category 2: Benign. "Our facility is accredited by the [employer] Mammography Program." This patient's information has been entered into a reminder system for the patient to be notified with the results of her examination and a target date for the next mammogram. Electronically signed by: Isha Rashid MD (01/03/2017 12:16 PM)
--- NOTE | 2017-01-03 12:36 | KCIC ---
Bone mineral density exam History: Postmenopausal, takes thyroid medication and heparin use, diabetes Comparison: None Findings: Bone mineral density examination utilizing DEXA was performed. Left hip bone mineral density of 0.904 g/cm2 corresponds with a T score -0.3, Z score 1.4. The bone mineral density of the lumbar spine was 1.090 g/cm2 which corresponds with a T-score of 0.4. The age matched Z-score is 2.8 . By [employer] on Osteoporosis criteria, a T score of 0 to-1 SD is considered to be within normal limits. A T score of -1 to -2.5 SD is considered osteopenia. A T score less than -2.5 SD is considered osteoporosis Impression: 1. There is normal bone density of the lumbar spine and the left hip. Electronically signed by: Baron Cardenas MD (01/03/2017 12:33 PM)
== END | disposition home or self-care (01) ==
LOC: KCIC DEXA 10:22
PROVIDERS: ATTEND Nurse Practitioner
DX: Z12.31 Encounter for screening mammogram for malignant neoplasm of breast (principal); Z78.0 Asymptomatic menopausal state
CPT/HCPCS: 77080; G0202; 77067

== ENCOUNTER 2017-02-27 16:59 | Inpatient (IN) | payer MEDICARE, OTHER ==
[~2017-02-27] VITALS: Ht 160 cm; Wt 99.9 kg
--- NOTE | 2017-02-27 17:55 | PHYS DOC ---
Past Medical History Past Medical History: CHF, Diabetes-Type I, Hypertension, Hypothyroid, Renal Failure Additional Past Medical Histor: Essential Tremors Past Surgical History: Appendectomy, Tubal ligation Additional Past Surgical Histo: AV Fistula Right Arm, BLADDER SX Alcohol Use: None Drug Use: None Adult General Chief Complaint Chief Complaint: DIALYSIS PROBLEM HPI HPI Patient is a 76 year old female who presents to the ED with the complaint of nonfunctioning dialysis catheter. The patient tells me that she had a dialysis fistula in her right arm, something went wrong with it may be a month ago. She had revision done recently. In the meantime, she has had a right tunneled subclavian dialysis catheter that has been working okay, but today when she went to dialysis it wouldn't work. They tried putting heparin and it but they still couldn't get it to work so she was sent to the ED. The patient does make urine. She has no specific complaints at this time. She denies shortness of air. PCP Dr. Duvall Poultry Hatchery Man Dr. Werner Review of Systems Review of Systems Constitutional: Denies fever or chills [] Respiratory: Denies shortness of breath [] : She does make urine Integument: Denies rash or skin lesions [] Allergies Allergies Allergies Coded Allergies Type Severity Reaction Last Updated Verified morphine Allergy Severe 06/12/14 Yes codeine Allergy Intermediate HIVES 06/12/14 Yes Physical Exam Physical Exam Constitutional: Well developed, well nourished, no acute distress, non-toxic appearance. Alert, mentating normally, no acute distress. HENT: Normocephalic, atraumatic, bilateral external ears normal, nose normal. [ ] Eyes: conjunctiva normal, no discharge. [] Neck: Normal range of motion, no stridor. [] Cardiovascular:Heart rate regular rhythm, no murmur [] Lungs & Thorax: Bilateral breath sounds clear to auscultation , no rales Skin: Warm, dry, no erythema, no rash. [] Extremities: No tenderness, no cyanosis, no clubbing, ROM intact, no edema. [] Neurologic: Alert and oriented X 3, normal motor function, normal sensory function, no focal deficits noted. [] Current Patient Data Vital Signs Vital Signs Date Time Temp Pulse Resp B/P (MAP) Pulse Ox O2 Delivery O2 Flow Rate FiO2 02/27/17 17:47 66 18 148/65 (92) 92 Room Air 02/27/17 17:18 99.4 99.4 EKG EKG [] Radiology/Procedures Radiology/Procedures [] Course & Med Decision Making Course & Med Decision Making Pertinent Labs and Imaging studies reviewed. (See chart for details) 76-year-old female presents with her temporary dialysis catheter not working. She was scheduled to have dialysis today. She does not have overt fluid overload at this time. Discussed the case with , nephrology. The patient can be admitted to have an interventional radiology procedure tomorrow to ideally declot her dialysis catheter, and then have dialysis. I wrote bridge orders and I was not able to find the order to have interventional radiology do a declotting procedure to the patient's catheter. I did discuss this plan with Zakia, the nursing factory supervisor, who will pass along to interventional radiology the plan. I discussed the case with Dr. Duvall who will admit the patient. I wrote bridge orders. [] Dragon Disclaimer Dragon Disclaimer This electronic medical record was generated, in whole or in part, using a voice recognition dictation system. Departure Departure Impression: Primary Impression: Dialysis catheter clot or failure Additional Impression: End stage renal disease Disposition: ADMITTED INPATIENT Admitting Physician: Brooke Duvall Condition: STABLE Referrals: BROOKE DUVALL MD (PCP) Problem Qualifiers SHUKRI OROSCO MD Feb 27, 2017 17:55
[2017-02-27 18:20] LABS: BASO % 1 % (0-3); EOS % 5 % (0-3); HEMOGLOBIN 9.2 g/dL (12.0-15.5); LYMPH # 1.5 x10^3/uL (1.0-4.8); LYMPH % 33 % (24-48); MEAN CORPUSCULAR HEMOGLOBIN 28 pg (25-35); MEAN CORPUSCULAR HGB CONC 33 g/dL (31-37); MEAN CORPUSCULAR VOLUME 87 fL (79-100); MONO % 7 % (0-9); NEUT % 54 % (31-73); PLATELET COUNT 224 x10^3/uL (140-400); RED BLOOD COUNT 3.22 x10^6/uL (3.50-5.40); RED CELL DISTRIBUTION WIDTH 13.6 % (11.5-14.5); WHITE BLOOD COUNT 4.7 x10^3/uL (4.0-11.0)
[2017-02-27 18:32] LABS: CALCIUM 7.9 mg/dL (8.5-10.1); CREATININE 6.8 mg/dL (0.6-1.0); GFR 7.2; POTASSIUM 4.3 mmol/L (3.5-5.1)
[2017-02-27 18:37] LABS: ALBUMIN/GLOBULIN RATIO 0.7 (1.0-1.7); TOTAL BILIRUBIN 0.3 mg/dL (0.2-1.0); TOTAL PROTEIN 7.6 g/dL (6.4-8.2)
[2017-02-27 19:00] VITALS: BP 126/60
[2017-02-27 19:30] VITALS: BP 126/60
[2017-02-27 20:00] VITALS: BP 126/60
[2017-02-27] MEDS ORDERED: HYDR-971 PO (20:31)
[2017-02-27 23:00] VITALS: BP 19/58
[2017-02-28 03:00] VITALS: BP 123/54
[2017-02-28 07:00] VITALS: BP 117/55
--- NOTE | 2017-02-28 09:04 | PDOC ---
MAICO IQBAL APRN 02/28/17 0904: Provider Note Provider Note 1. Malfunctioning dialysis catheter 2. End-stage renal disease, on hemodialysis. 3. Congestive heart failure diastolic EF 55% stable 4. Diabetes mellitus with nephropathy and neuropathy. 5. 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 6. Essential tremors. 7. Status post appendectomy and cholecystectomy. 8. Anemia chronic disease renal /Fe def 9. Anxiety. 10. Depression. 11. Hypothyroidism 12. moderate chronic PCL malnutrition 13. severe weakness and debility 14. lung nodule x2 stable per CT last admit 15. revision fistula LUE 02/21/17 PLAN: malfunctioning dialysis catheter IR consulted-replace tunneled dialysis catheter ESRD nephrology consulted HD MWF-did not receive dialysis 09/27 dialyze today after TC replaced and plan DC tomorrow after dialysis schedule resumed. anemia CD ADmit Hgb 9.2 monitor DVT/GI prophylaxis SCD/KELVIN PPI For further plan of care, please see the orders. SHADI DUVALL MD 02/28/17 1101: Provider Note Provider Note The patient was seen and examined by me. Chart reviewed and plan of care formulated. Discussed with, reviewed and agree with BOTTLING ROOM WORKER's notes, plan of care and orders with modifications as necessary. For more details regarding further plans, please refer to the orders. MAICO IQBAL APRN Feb 28, 2017 09:04 SHADI DUVALL MD Feb 28, 2017 11:01
--- NOTE | 2017-02-28 09:13 | RAD ---
Indication nonfunctioning dialysis catheter. A single view of the chest was obtained. Comparison is made to the most recent examination available 10/17/2016. There is unchanged cardiomegaly. There is suspect mild pulmonary vascular congestion. There is no focal consolidated pneumonia significant pleural fluid collection or pneumothorax. A left-sided dialysis catheter is noted. The tip appears appropriately positioned at the SVC right atrial junction. IMPRESSION:: Mild cardiomegaly appearing similar. Suspect mild pulmonary vascular congestion. Normally positioned dialysis catheter
[2017-02-28] MEDS ORDERED: diphenhydrAMINE HCL 25 MG CAPSULE PO PRN (09:15)
[2017-02-28] MEDS ORDERED: diphenhydrAMINE ORAL ELIXIR 12.5 MG/5 ML ML PO PRN (09:30)
[2017-02-28 09:49] LABS: INR 1.1 (0.8-1.1); PROTHROMBIN TIME PATIENT 13.5 SEC (11.7-14.0)
[2017-02-28] MEDS: HYDROcodone/APAP 5/325MG 1 TAB TABLET PO SCH ×2 (10:00→20:38)
[2017-02-28] MEDS: amLODIPine BESYLATE 10 MG TABLET PO SCH (10:00)
[2017-02-28] MEDS ORDERED: HEPARIN for IV BOLUS 10,000 UNIT/10 ML VIAL. ONE (10:41)
[2017-02-28] MEDS ORDERED: LIDOCAINE 2%/EPI 1:100,000 20 ML VIAL. ONE (10:41)
[2017-02-28 10:52] VITALS: BP 122/46
[2017-02-28] MEDS ORDERED: MIDAZOLAM HCL/PF 2 MG/2 ML VIAL. IV ONE (11:15)
[2017-02-28] MEDS ORDERED: LIDOCAINE 2%/EPI 1:100,000 20 ML VIAL. IJ ONE (11:15)
[2017-02-28] MEDS ORDERED: fentaNYL PF VIAL 100 MCG/2 ML VIAL ONE (11:15)
[2017-02-28] MEDS ORDERED: fentaNYL PF VIAL 100 MCG/2 ML VIAL IV ONE (11:15)
[2017-02-28] MEDS ORDERED: MIDAZOLAM HCL/PF 2 MG/2 ML VIAL. ONE (11:15)
[2017-02-28] MEDS ORDERED: IOHEXOL 300 MG/ML 50 ML VIAL. ONE (11:21)
[2017-02-28] MEDS: INSULIN ASPART 300 UNITS/3 ML INSULN.PEN SQ SCH ×3 (11:30→16:30)
[2017-02-28] MEDS ORDERED: IOHEXOL 300 MG/ML 50 ML VIAL. IV ONE (11:45)
[2017-02-28] MEDS ORDERED: CONTRAST GIVEN MC PRN (11:45)
[2017-02-28 11:51] VITALS: BP 112/66
--- NOTE | 2017-02-28 11:57 | PDOC2 ---
CONSULT Date of Consult Date of Consult DATE: 02/28/17 TIME: 11:52 Reason for Consult Reason for Consult: ESRD AND HYPERVOLEMIA Referring Physician Referring Physician: ELOINA Identification/Chief Complaint Chief Complaint SOB AND NON FUNCTIONING HD CATHETER Problems: Source Source: Chart review, Patient History of Present Illness Reason for Visit: THIS IS A 76 YR OLD ESRD PT WITH SOME SOB. SHE HAS HD WITH A HER RIGHT IJ HD CATHETER. WHEN SHE WENT TO HD SHE WAS NOTED TO BE UP 7 KG FROM HER DW AND HER CATHETER WOULD NOT WORK. SHE WAS THEN SENT TO THE ER. LABS ARE NOTED AND C/W WITH HER ESRD STATUS. 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 Past Medical History Cardiovascular: CHF, HTN, Hyperlipidemia Pulmonary: Pulmonary embolus CENTRAL NERVOUS SYSTEM: CVA, Periperal neuropathy GI: GERD Heme/Onc: Anemia NOS, Other Hepatobiliary: No pertinent hx Psych: Anxiety Musculoskeletal: Osteoarthritis Rheumatologic: Rheumatoid arthritis, Other Infectious disease: No pertinent hx Renal/: Chronic renal failure Endocrine: Diabetes, Hypothyroidism, Hyperparathyroidism Past Surgical History Past Surgical History: Appendectomy, Cholecystectomy, Tubal Ligation, Other Family History Family History: Cancer, Coronary Artery Disease, Diabetes Social History ALCOHOL: none Drugs: None Lives: with Family Domestic Violence: Neg Current Problem List Problem List Problems Medical Problems: (1) Dialysis catheter clot or failure Status: Acute (2) End stage renal disease Status: Acute Current Medications Current Medications Current Medications Amlodipine Besylate (Norvasc) 10 mg DAILY PO ; Start 02/28/17 at 10:00 Aspirin (Ecotrin) 81 mg DAILYWBKFT PO ; Start 02/28/17 at 10:00 Citalopram Hydrobromide (CeleXA) 10 mg DAILY PO ; Start 02/28/17 at 10:00 Diphenhydramine HCl (Benadryl) 12.5 mg PRN Q6HRS PRN PO ITCHING; Start at 09:15; Stop 02/28/17 at 09:15; Status DC Vitamin B Complex/ Vitamin C (Thuy-Gissel) 1 tab DAILY PO ; Start 02/28/17 at 10: 00 Hydralazine HCl (Apresoline) 50 mg BID PO ; Start 02/28/17 at 10:00 Acetaminophen/ Hydrocodone Bitart (Lortab 5/325) 1 tab BID PO ; Start 02/28/17 at 10:00 Insulin Aspart (NovoLOG) 8 units BIDACBL SQ ; Start 02/28/17 at 11:30 Insulin Aspart (NovoLOG) 10 units DAILYWSUP SQ ; Start 02/28/17 at 17:00 Levothyroxine Sodium (Synthroid) 100 mcg DAILY07 PO ; Start 02/28/17 at 10:00 Sevelamer Carbonate (Renvela) 800 mg TIDWMEALS PO ; Start 02/28/17 at 12:00 Cetirizine HCl (ZyrTEC) 5 mg HS PO ; Start 02/28/17 at 21:00 Isosorbide Mononitrate (Imdur) 60 mg DAILY PO ; Start 02/28/17 at 11:00 Calcium Acetate (Phoslo) 1,334 mg TIDWMEALS PO ; Start 02/28/17 at 12:00; Stop 02/28/17 at 12:00; Status DC Insulin Aspart (NovoLOG) TIDAC SQ ; Start 02/28/17 at 11:30 Diphenhydramine HCl (Benadryl Oral Elixir) 12.5 mg PRN Q6HRS PRN PO ITCHING; Start 02/28/17 at 09:30 Heparin Sodium/ Sodium Chloride 1,000 unit 1X ONCE IART Last administered on 11:41; Start 02/28/17 at 11:15; Stop 02/28/17 at 11:16; Status DC Midazolam HCl (Versed) 2 mg 1X ONCE IV Last administered on 02/28/17 11:42; Start 02/28/17 at 11:15; Stop 02/28/17 at 11:16; Status DC Fentanyl Citrate (Fentanyl 2ml Vial) 100 mcg 1X ONCE IV Last administered on 11:42; Start 02/28/17 at 11:15; Stop 02/28/17 at 11:16; Status DC Lidocaine/ Epinephrine (Xylocaine 2%-Epi 1:100,000) 20 ml 1X ONCE IJ Last administered on 02/28/17 11:41; Start 02/28/17 at 11:15; Stop 02/28/17 at 11:16 ; Status DC Heparin Sodium (Porcine) (Heparin Sodium) 2,600 unit 1X ONCE INT CAT Last administered on 02/28/17 11:41; Start 02/28/17 at 11:15; Stop 02/28/17 at 11:16 ; Status DC Cefazolin Sodium/ Dextrose 50 ml @ 100 mls/hr 1X ONCE IV Last administered on 02/28/17 11:31; Start 02/28/17 at 11:15; Stop 02/28/17 at 11:47; Status DC Iohexol (Omnipaque 300 Mg/ml) 50 ml 1X ONCE IV Last administered on 02/28/17 11:41; Start 02/28/17 at 11:45; Stop 02/28/17 at 11:47; Status DC Info (Do NOT chart on this entry -- for MONITORING) 1 each PRN DAILY PRN MC SEE COMMENTS; Start 02/28/17 at 11:45; Stop 03/02/17 at 11:44 Active Scripts Active Renvela (Sevelamer Carbonate) 800 Mg Tablet 800 Mg PO TIDWMEALS Nephro-Gissel Tablet (Folic Acid/Vitamin B Comp W-C) 0.8 Mg Tablet 1 Tab PO DAILY Benadryl (Diphenhydramine Hcl) 25 Mg Capsule 12.5 Mg PO PRN Q6HRS PRN Aspirin Ec (Aspirin) 81 Mg Tablet.dr 81 Mg PO DAILYWBKFT [Calcium Acetate] 667 MG Capsule 1,334 Mg PO TIDWMEALS Tamiflu (Oseltamivir Phosphate) 30 Mg Capsule 30 Mg PO DAILY Synthroid (Levothyroxine Sodium) 100 Mcg Tablet 100 Mcg PO DAILY07 Hydralazine Hcl 50 Mg Tablet 50 Mg PO BID Imdur (Isosorbide Mononitrate) 60 Mg Tab.er.24h 60 Mg PO DAILY Zyrtec (Cetirizine Hcl) 10 Mg Tab.chew 5 Mg PO HS Celexa (Citalopram Hydrobromide) 10 Mg Tablet 10 Mg PO DAILY Reported [place] 5-325 Tablet (Acetaminophen/Hydrocodone Bitart) 1 Each Tablet 1 Tab PO BID Novolog Flexpen (Insulin Aspart) 100 Unit/1 Ml Insuln.pen 10 Unit SQ DAILYWSUP Novolog Flexpen (Insulin Aspart) 100 Unit/1 Ml Insuln.pen 8 Unit SQ BIDACBL Amlodipine Besylate 10 Mg Tablet 1 Tab PO DAILY Allergies Allergies: Coded Allergies: morphine (Verified Allergy, Severe, 06/12/14) codeine (Verified Allergy, Intermediate, HIVES, 06/12/14) ROS General: YES: Fatigue PSYCHOLOGICAL ROS: YES: Anxiety, Depression Eyes: Yes Decreased vision HEENT: YES: Heacaches Respiratory: YES: Cough, Shortness of breath Cardiovascular: yes Edema Gastrointestinal: Yes Constipation Genitourinary: YES Other (ANURIA) Musculoskeletal: Yes Muscular Weakness Neurological: Yes Weakness Skin: Yes Dry Skin Physical Exam General: Alert, Oriented X3, Cooperative, No acute distress HEENT: Atraumatic, PERRLA Lungs: Other (DECREASED AT BASES) Heart: Regular rate, Normal S1, Normal S2, No murmurs Abdomen: Normal bowel sounds, Soft, No tenderness Extremities: No clubbing Neuro: Normal speech, Cranial nerves 3-12 NL Psych/Mental Status: Mental status NL, Mood NL MUSCULOSKELETAL: No deformity, No swelling Vitals VITALS Vital Signs Date Time Temp Pulse Resp B/P (MAP) Pulse Ox O2 Delivery O2 Flow Rate FiO2 02/28/17 11:51 80 16 95 Nasal Cannula 2.0 02/28/17 10:52 97.9 122/46 (71) 97.9 Labs Labs Laboratory Tests Test 02/27/17 18:15 02/28/17 07:39 02/28/17 09:25 02/28/17 10:19 White Blood Count 4.7 x10^3/uL (4.0-11.0) Red Blood Count 3.22 x10^6/uL (3.50-5.40) Hemoglobin 9.2 g/dL (12.0-15.5) Hematocrit 28.0 % (36.0-47.0) Mean Corpuscular Volume 87 fL (79-100) Mean Corpuscular Hemoglobin 28 pg (25-35) Mean Corpuscular Hemoglobin Concent 33 g/dL (31-37) Red Cell Distribution Width 13.6 % (11.5-14.5) Platelet Count 224 x10^3/uL (140-400) Neutrophils (%) (Auto) 54 % (31-73) Lymphocytes (%) (Auto) 33 % (24-48) Monocytes (%) (Auto) 7 % (0-9) Eosinophils (%) (Auto) 5 % (0-3) Basophils (%) (Auto) 1 % (0-3) Neutrophils # (Auto) 2.6 x10^3uL (1.8-7.7) Lymphocytes # (Auto) 1.5 x10^3/uL (1.0-4.8) Monocytes # (Auto) 0.3 x10^3/uL (0.0-1.1) Eosinophils # (Auto) 0.3 x10^3/uL (0.0-0.7) Basophils # (Auto) 0.0 x10^3/uL (0.0-0.2) Sodium Level 140 mmol/L (136-145) Potassium Level 4.3 mmol/L (3.5-5.1) Chloride Level 102 mmol/L (98-107) Carbon Dioxide Level 29 mmol/L (21-32) Anion Gap 9 (6-14) Blood Urea Nitrogen 34 mg/dL (7-20) Creatinine 6.8 mg/dL (0.6-1.0) Estimated GFR (Cockcroft-Gault) 7.2 BUN/Creatinine Ratio 5 (6-20) Glucose Level 163 mg/dL (70-99) Calcium Level 7.9 mg/dL (8.5-10.1) Total Bilirubin 0.3 mg/dL (0.2-1.0) Aspartate Amino Transf (AST/SGOT) 19 U/L (15-37) Alanine Aminotransferase (ALT/SGPT) 6 U/L (14-59) Alkaline Phosphatase 74 U/L (46-116) Total Protein 7.6 g/dL (6.4-8.2) Albumin 3.0 g/dL (3.4-5.0) Albumin/Globulin Ratio 0.7 (1.0-1.7) Glucose (Fingerstick) 137 mg/dL (70-99) 142 mg/dL (70-99) Prothrombin Time 13.5 SEC (11.7-14.0) Prothromb Time International Ratio 1.1 (0.8-1.1) Laboratory Tests Test 02/27/17 18:15 02/28/17 07:39 02/28/17 09:25 02/28/17 10:19 White Blood Count 4.7 x10^3/uL (4.0-11.0) Red Blood Count 3.22 x10^6/uL (3.50-5.40) Hemoglobin 9.2 g/dL (12.0-15.5) Hematocrit 28.0 % (36.0-47.0) Mean Corpuscular Volume 87 fL (79-100) Mean Corpuscular Hemoglobin 28 pg (25-35) Mean Corpuscular Hemoglobin Concent 33 g/dL (31-37) Red Cell Distribution Width 13.6 % (11.5-14.5) Platelet Count 224 x10^3/uL (140-400) Neutrophils (%) (Auto) 54 % (31-73) Lymphocytes (%) (Auto) 33 % (24-48) Monocytes (%) (Auto) 7 % (0-9) Eosinophils (%) (Auto) 5 % (0-3) Basophils (%) (Auto) 1 % (0-3) Neutrophils # (Auto) 2.6 x10^3uL (1.8-7.7) Lymphocytes # (Auto) 1.5 x10^3/uL (1.0-4.8) Monocytes # (Auto) 0.3 x10^3/uL (0.0-1.1) Eosinophils # (Auto) 0.3 x10^3/uL (0.0-0.7) Basophils # (Auto) 0.0 x10^3/uL (0.0-0.2) Sodium Level 140 mmol/L (136-145) Potassium Level 4.3 mmol/L (3.5-5.1) Chloride Level 102 mmol/L (98-107) Carbon Dioxide Level 29 mmol/L (21-32) Anion Gap 9 (6-14) Blood Urea Nitrogen 34 mg/dL (7-20) Creatinine 6.8 mg/dL (0.6-1.0) Estimated GFR (Cockcroft-Gault) 7.2 BUN/Creatinine Ratio 5 (6-20) Glucose Level 163 mg/dL (70-99) Calcium Level 7.9 mg/dL (8.5-10.1) Total Bilirubin 0.3 mg/dL (0.2-1.0) Aspartate Amino Transf (AST/SGOT) 19 U/L (15-37) Alanine Aminotransferase (ALT/SGPT) 6 U/L (14-59) Alkaline Phosphatase 74 U/L (46-116) Total Protein 7.6 g/dL (6.4-8.2) Albumin 3.0 g/dL (3.4-5.0) Albumin/Globulin Ratio 0.7 (1.0-1.7) Glucose (Fingerstick) 137 mg/dL (70-99) 142 mg/dL (70-99) Prothrombin Time 13.5 SEC (11.7-14.0) Prothromb Time International Ratio 1.1 (0.8-1.1) Assessment/Plan Assessment/Plan IMP ESRD ANEMIA HYPERVOLEMIA DM II HTN NON FUNCTIONING HD CATHETER PLAN WILL HAVE IR PLACE A NEW HD CATHETER WILL HD TODAY UF TO DW START ARANESP HD AGAIN TOMORROW TO GET PT BACK TO HER SCHEDULE PT HAS A RIGHT ARM AVF BUT NEEDS TRANSPOSITION SHE HAS BEEN FOLLOWING UP WITH VASCULAR SURGERY FOR THIS KEM FOSTER MD Feb 28, 2017 11:57
[2017-02-28] MEDS ORDERED: CALCIUM ACETATE 667 MG CAPSULE PO SCH (12:00)
[2017-02-28] MEDS: SEVELAMER CARBONATE 800 MG TABLET. PO SCH ×2 (12:00→17:17)
[2017-02-28] MEDS ORDERED: IV NORMAL SALINE 1000ML BAG 1,000 ML IV PRN ×2 (12:34)
[2017-02-28] MEDS ORDERED: DIALYSIS PATIENT. MC PRN (12:45)
[2017-02-28] MEDS ORDERED: diphenhydrAMINE 50 MG/ML VIAL IV PRN ×2 (12:45)
[2017-02-28] MEDS ORDERED: 0.9 % SODIUM CHLORIDE 10 ML DISP.SYRIN. IV PRN ×2 (12:45)
--- NOTE | 2017-02-28 13:43 | DISCH ---
DISCHARGE INSTRUCTIONS Condition on Discharge Condition on Discharge: Stable Activity After Discharge Activity Instructions for Disc: Activity as tolerated Diet after Discharge Diet after Discharge: Cardiac (renal ADA diet ) Wound Incision Care Other wound/incision instructi: Keep dialysis catheter site dressing dry. Checks after Discharge DC Comment: check BS in morning and before dinner Contacting the DR. after DC Call your doctor for: Concerns you may have Follow-Up Follow up with: Dr. Hart or Renzo in 3-5 days. Follow Up With: Continue hemodialysis MWF> MAICO IQBAL APRN Feb 28, 2017 13:43
--- NOTE | 2017-02-28 13:55 | RAD ---
Fluoroscopically guided replacement of left internal jugular tunneled dialysis catheter 02/28/2017 Indication: Catheter malfunction Discussion: Sedation: Conscious sedation was administered for 30 minutes. The patient was monitored by a qualified independent observer throughout the time of sedation. Please refer to the medical record for exact doses of medications utilized to achieve moderate sedation. Fluoroscopy time: 2.8 minutes Dose area product: 28 Gycm2 The procedure was explained in its entirety to the patient or the patients designated field support representative by a member of the treatment team, including a discussion of the risks, benefits and commonly accepted alternatives to the procedure, as well as the expected consequences of no therapy whatsoever. Discussion of the risks included, but was not limited to, those that are most frequent and those that are rare but possibly severe or life-threatening, as well as the possibility of unforeseen complications. All elements of maximal sterile barrier technique including the use of a cap, mask, sterile gown, sterile gloves, large sterile sheet, appropriate hand hygiene, and 2% chlorhexidine for cutaneous antisepsis (or acceptable alternative antiseptic per current guidelines) were followed for this procedure. Following informed consent, the patient was prepped and draped in the usual sterile fashion. Fluoroscopic evaluation demonstrates a left internal jugular tunneled central venous catheter with tip in the inferior right atrium directed towards the SVC. The venous limb of the dialysis catheter would not aspirate adequately. Small amount of contrast was administered through the pre-existing catheter demonstrating no evidence of significant fibrin sheath. Catheter malfunction is thought to be positional. 2 stiff Glidewire were advanced into the inferior vena cava over which the pre-existing catheter was removed and a new 23 cm tip to cuff palindrome dialysis catheter was advanced. Catheter tip was positioned in the mid right atrium. Catheter was found to flush and aspirate adequately in this position. The catheter was flushed and packed with heparin. The new catheter was secured in place and a sterile dressing was applied. No immediate complications were identified. Impression: Successful fluoroscopically guided replacement of a left internal jugular tunneled dialysis catheter. (23 cm tip to cuff catheter was placed.
--- NOTE | 2017-02-28 13:57 | PDOC1 ---
HISTORY AND PHYSICAL Chief Complaint Chief Complaint This 76 year old female has been admitted with a chief complaint of non functioning dialysis catheter. She was at dialysis yesterday and the procedure could not be completed as her tunneled dialysis catheter was non functioning. She has been admitted for further evaluation and treatment. . 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 Review of Symptoms Review of Symptoms A 14 point ROS was completed with the following noted as positive: per HPI Other systems reviewed and negative. Medications Medications reviewed and reconciled Allergy Allergies Coded Allergies Type Severity Reaction Last Updated Verified morphine Allergy Severe 06/12/14 Yes codeine Allergy Intermediate HIVES 06/12/14 Yes Physical Exam Physical Exam General appearance - alert,well appearing, and in no distress Mental Status - alert, oriented to person, place, and time, affect appropriate to mood Head - normal Chest - clear to auscultation, no wheezes, rales or rhonchi, symmetric air entry Heart - S1 and S2 normal Abdomen - soft, nontender, nondistended, no masses or organomegaly Neurological - no acute focal neurological deficits noted. Musculoskeletal - no muscular tenderness noted Extremities - no pedal edema Skin - warm and dry AV fistula=old incision RUE upper arm approximated w/o signs infection. VTE Prophylaxis Ordered VTE Prophylaxis Devices: Yes VTE Pharmacological Prophylaxi: No Assessment Labs Laboratory Tests Test 02/27/17 18:15 02/28/17 07:39 02/28/17 09:25 02/28/17 10:19 White Blood Count 4.7 x10^3/uL (4.0-11.0) Red Blood Count 3.22 x10^6/uL (3.50-5.40) Hemoglobin 9.2 g/dL (12.0-15.5) Hematocrit 28.0 % (36.0-47.0) Mean Corpuscular Volume 87 fL (79-100) Mean Corpuscular Hemoglobin 28 pg (25-35) Mean Corpuscular Hemoglobin Concent 33 g/dL (31-37) Red Cell Distribution Width 13.6 % (11.5-14.5) Platelet Count 224 x10^3/uL (140-400) Neutrophils (%) (Auto) 54 % (31-73) Lymphocytes (%) (Auto) 33 % (24-48) Monocytes (%) (Auto) 7 % (0-9) Eosinophils (%) (Auto) 5 % (0-3) Basophils (%) (Auto) 1 % (0-3) Neutrophils # (Auto) 2.6 x10^3uL (1.8-7.7) Lymphocytes # (Auto) 1.5 x10^3/uL (1.0-4.8) Monocytes # (Auto) 0.3 x10^3/uL (0.0-1.1) Eosinophils # (Auto) 0.3 x10^3/uL (0.0-0.7) Basophils # (Auto) 0.0 x10^3/uL (0.0-0.2) Sodium Level 140 mmol/L (136-145) Potassium Level 4.3 mmol/L (3.5-5.1) Chloride Level 102 mmol/L (98-107) Carbon Dioxide Level 29 mmol/L (21-32) Anion Gap 9 (6-14) Blood Urea Nitrogen 34 mg/dL (7-20) Creatinine 6.8 mg/dL (0.6-1.0) Estimated GFR (Cockcroft-Gault) 7.2 BUN/Creatinine Ratio 5 (6-20) Glucose Level 163 mg/dL (70-99) Calcium Level 7.9 mg/dL (8.5-10.1) Total Bilirubin 0.3 mg/dL (0.2-1.0) Aspartate Amino Transf (AST/SGOT) 19 U/L (15-37) Alanine Aminotransferase (ALT/SGPT) 6 U/L (14-59) Alkaline Phosphatase 74 U/L (46-116) Total Protein 7.6 g/dL (6.4-8.2) Albumin 3.0 g/dL (3.4-5.0) Albumin/Globulin Ratio 0.7 (1.0-1.7) Glucose (Fingerstick) 137 mg/dL (70-99) 142 mg/dL (70-99) Prothrombin Time 13.5 SEC (11.7-14.0) Prothromb Time International Ratio 1.1 (0.8-1.1) Laboratory Tests Test 02/27/17 18:15 02/28/17 07:39 02/28/17 09:25 02/28/17 10:19 White Blood Count 4.7 x10^3/uL (4.0-11.0) Red Blood Count 3.22 x10^6/uL (3.50-5.40) Hemoglobin 9.2 g/dL (12.0-15.5) Hematocrit 28.0 % (36.0-47.0) Mean Corpuscular Volume 87 fL (79-100) Mean Corpuscular Hemoglobin 28 pg (25-35) Mean Corpuscular Hemoglobin Concent 33 g/dL (31-37) Red Cell Distribution Width 13.6 % (11.5-14.5) Platelet Count 224 x10^3/uL (140-400) Neutrophils (%) (Auto) 54 % (31-73) Lymphocytes (%) (Auto) 33 % (24-48) Monocytes (%) (Auto) 7 % (0-9) Eosinophils (%) (Auto) 5 % (0-3) Basophils (%) (Auto) 1 % (0-3) Neutrophils # (Auto) 2.6 x10^3uL (1.8-7.7) Lymphocytes # (Auto) 1.5 x10^3/uL (1.0-4.8) Monocytes # (Auto) 0.3 x10^3/uL (0.0-1.1) Eosinophils # (Auto) 0.3 x10^3/uL (0.0-0.7) Basophils # (Auto) 0.0 x10^3/uL (0.0-0.2) Sodium Level 140 mmol/L (136-145) Potassium Level 4.3 mmol/L (3.5-5.1) Chloride Level 102 mmol/L (98-107) Carbon Dioxide Level 29 mmol/L (21-32) Anion Gap 9 (6-14) Blood Urea Nitrogen 34 mg/dL (7-20) Creatinine 6.8 mg/dL (0.6-1.0) Estimated GFR (Cockcroft-Gault) 7.2 BUN/Creatinine Ratio 5 (6-20) Glucose Level 163 mg/dL (70-99) Calcium Level 7.9 mg/dL (8.5-10.1) Total Bilirubin 0.3 mg/dL (0.2-1.0) Aspartate Amino Transf (AST/SGOT) 19 U/L (15-37) Alanine Aminotransferase (ALT/SGPT) 6 U/L (14-59) Alkaline Phosphatase 74 U/L (46-116) Total Protein 7.6 g/dL (6.4-8.2) Albumin 3.0 g/dL (3.4-5.0) Albumin/Globulin Ratio 0.7 (1.0-1.7) Glucose (Fingerstick) 137 mg/dL (70-99) 142 mg/dL (70-99) Prothrombin Time 13.5 SEC (11.7-14.0) Prothromb Time International Ratio 1.1 (0.8-1.1) Plan Plan 1. Malfunctioning dialysis catheter 2. End-stage renal disease, on hemodialysis. 3. Congestive heart failure diastolic EF 55% stable 4. Diabetes mellitus with nephropathy and neuropathy. 5. 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 6. Essential tremors. 7. Status post appendectomy and cholecystectomy. 8. Anemia chronic disease renal /Fe def 9. Anxiety. 10. Depression. 11. Hypothyroidism 12. moderate chronic PCL malnutrition 13. severe weakness and debility 14. lung nodule x2 stable per CT last admit 15. revision fistula LUE 02/21/17 PLAN: malfunctioning dialysis catheter IR consulted-replace tunneled dialysis catheter ESRD nephrology consulted HD MWF-did not receive dialysis 09/27 dialyze today after TC replaced and plan DC tomorrow after dialysis schedule resumed. anemia CD ADmit Hgb 9.2 monitor DVT/GI prophylaxis SCD/KELVIN PPI For more details regarding further plans, please refer to the orders. SHADI DUVALL MD 02/28/17 1101: Provider Note Provider Note The patient was seen and examined by me. Chart reviewed and plan of care formulated. Discussed with, reviewed and agree with CUSTOMER ASSISTANCE REPRESENTATIVE's notes, plan of care and orders with modifications as necessary. For more details regarding further plans, please refer to the orders. MAICO IQBAL DIESEL ENGINE II PIPE FITTER Feb 28, 2017 09:04 SHADI DUVALL MD COPIED from Dr. Duvall note to /JNG DIESEL ENGINE II PIPE FITTER Feb 28, 2017 11:01 MAICO IQBAL DIESEL ENGINE II PIPE FITTER Feb 28, 2017 13:57
[2017-02-28] MEDS: LEVOTHYROXINE 100 MCG TABLET PO SCH (16:32)
[2017-02-28] MEDS: ASPIRIN ENTERIC COATED 81 MG TABLET.DR. PO SCH (16:33)
[2017-02-28] MEDS: CITALOPRAM 10 MG TABLET. PO SCH (16:33)
[2017-02-28] MEDS: FOLIC/VIT B COMP W-C (RENAL) TABLET. PO SCH (16:33)
[2017-02-28] MEDS: ISOSORBIDE MONONITRATE ER 30 MG TAB.ER.24H PO SCH (16:34)
[2017-02-28] MEDS ORDERED: INSULIN ASPART 300 UNITS/3 ML INSULN.PEN SQ SCH (17:00)
[2017-02-28 19:00] VITALS: BP 135/61
[2017-02-28] MEDS ORDERED: DARBEPOETIN ALFA 60 MCG/0.3 ML DISP.SYRIN. SQ SCH (21:00)
[2017-02-28] MEDS ORDERED: CETIRIZINE HCL 10 MG TABLET. PO SCH (21:00)
[2017-02-28 22:13] LABS: HEP B SURFACE ABDY Non Reactive (.)
[2017-02-28 22:47] VITALS: BP 108/52
[2017-03-01 02:35] VITALS: BP 115/53
[2017-03-01 05:27] LABS: BASO % 1 % (0-3); EOS % 5 % (0-3); HEMATOCRIT 26.5 % (36.0-47.0); HEMOGLOBIN 8.8 g/dL (12.0-15.5); LYMPH # 1.7 x10^3/uL (1.0-4.8); LYMPH % 35 % (24-48); MEAN CORPUSCULAR HEMOGLOBIN 28 pg (25-35); MEAN CORPUSCULAR HGB CONC 33 g/dL (31-37); MEAN CORPUSCULAR VOLUME 85 fL (79-100); MONO % 10 % (0-9); NEUT % 49 % (31-73); PLATELET COUNT 218 x10^3/uL (140-400); RED BLOOD COUNT 3.12 x10^6/uL (3.50-5.40); RED CELL DISTRIBUTION WIDTH 13.4 % (11.5-14.5); WHITE BLOOD COUNT 4.8 x10^3/uL (4.0-11.0)
[2017-03-01 05:35] LABS: CALCIUM 8.4 mg/dL (8.5-10.1); CREATININE 5.8 mg/dL (0.6-1.0); GFR 8.6; MAGNESIUM 2.1 mg/dL (1.8-2.4); POTASSIUM 4.4 mmol/L (3.5-5.1)
[2017-03-01] MEDS: LEVOTHYROXINE 100 MCG TABLET PO SCH (05:57)
--- NOTE | 2017-03-01 06:30 | ACF ---
Admission Forms Criteria GENERAL ADMISSION CRITERIA (Place 'X' for any and all applicable criteria): Admission is indicated for ANY ONE of the following: [ ]I. Hemodynamic instability as indicated by ANY ONE of the following(1)(2) (3)(4)(5): [ ]a) Vital sign abnormality not readily corrected by appropriate treatment within 12 to 24 hours indicated by ANY ONE of the following: [ ]i) Hypotension [ ]ii) Symptomatic Tachycardia unresponsive to treatment (eg , analgesia, fluids, sedation as indicated) [ ]iii) Orthostatic vital sign changes unresponsive to treatment (eg, fluids) [ ]b) Vital sign abnormality that is severe indicated by ANY ONE of the following: [ ]i) Inadequate perfusion indicated by ANY ONE of the following: [ ]1) Lactic acidosis (greater than 2 mmol/L) [ ]2) New abnormal capillary refill (greater than 3 seconds) [ ]3) Other metabolic acidosis (arterial pH less than 7.35) not otherwise explained [ ]4) Reduced urine output [ ]5) Altered mental status [ ]6) Myocardial Ischemia [ ]v) Mean arterial pressure[A] less than 60 mm Hg [ ]vi) Mean arterial pressure[A] less than 70 mm Hg after 30 minutes of appropriate treatment (eg, fluid resuscitation) [ ]vii) IV inotropic or vasopressor medication required to maintain adequate blood pressure or perfusion [ ]viii) Sustained heart rate greater than 120 beats per minute in adult or child 6 years or older[B]] [ ]II. Hypertension requiring inpatient treatment as indicated by ANY ONE of the following(6)(7)(8): [ ]a) SBP greater than 220 mm Hg or DBP greater than 120 mm Hg despite treatment [ ]b) SBP greater than 140 mm Hg or DBP greater than 100 mm Hg with evidence of acute end organ damage as indicated by ANY ONE of the following: [ ]i) Encephalopathy [ ]ii) Acute renal failure as indicated by new onset of ANY ONE of the following(9)(10)(11)(12)(13): [ ]1) A 3-fold rise in serum creatinine from baseline [ ]2) Serum creatinine greater than 4 mg/dL ( 354 micromoles/L) with acute rise greater than 0.5 mg/dL (44.2 micromoles/L) [ ]3) Reduction of more than 75% in estimated glomerular filtration rate from baseline [ ]4) Estimated glomerular filtration rate less than 35 mL/min/1.73m2 (0.59 mL/sec/1.73m2) in child up to 18 years of age [ ]5) Cessation of urine output indicated by ALL of the following: [ ]A. Adequate volume status [ ]B. Inadequate urine output as indicated by ANY ONE of the following: [ ]a. Urine output less than 0.3 mL/kg/hr for 24 hours [ ]b. Anuria (urine output less than 0.1 mL/kg/hr) for 12 hours [ ]iii) Aortic dissection [ ]iv) Myocardial ischemia [ ]v) Left ventricular heart failure [ ]vi) Retinal hemorrhage [ ]vii) Other significant finding [ ]c) Hypertension in child requiring inpatient treatment as indicated by ALL of the following(14)(15)(16): [ ]i) Outpatient treatment not effective, not available, or not appropriate [ ]ii) SBP or DBP greater than 95th percentile for age [ ]iii) Evidence of acute end organ damage as indicated by ANY ONE of the following: [ ]1) Altered mental status [ ]2) Acute renal failure as indicated by new onset of ANY ONE of the following(9)(10)(11)(12)(13): [ ]A. A 3-fold rise in serum creatinine from baseline [ ]B. Serum creatinine greater than 4 mg/dL (354 micromoles/L) with acute rise greater than 0.5 mg/dL (44.2 micromoles/L) [ ]C. Reduction of more than 75% in estimated glomerular filtration rate from baseline [ ]D. Estimated glomerular filtration rate less than 35 mL/min/1.73m2 (0.59 mL/sec/1.73m2)in child up to 18 years of age [ ]E. Cessation of urine output indicated by ALL of the following: [ ]a. Adequate volume status [ ]b. Inadequate urine output as indicated by ANY ONE of the following: [ ]1) Urine output less than 0.3 mL/kg/hr for 24 hours [ ]2) Anuria (urine output less than 0.1 mL/kg/hr) for 12 hours [ ]3) Severe headache [ ]4) Visual disturbance [ ]5) Retinal hemorrhage [ ]6) Other significant finding [ ]III. Acute cardiac or peripheral ischemia as indicated by ANY ONE of the following: [ ]a) Acute coronary syndrome(17)(18) [ ]b) Acute peripheral ischemia (eg, pulseless, cool, mottled, or cyanotic extremity)(19) [ ]IV. Cardiac arrhythmias or findings of immediate concern indicated by ANY ONE of the following(20)(21): [ ]a) Heart rhythms that are inherently dangerous or unstable indicated by ANY ONE of the following(22)(23)(24): [ ]i) Resuscitated ventricular fibrillation or cardiac arrest [ ]ii) Ventricular escape rhythm [ ]iii) Sustained ventricular tachycardia (30 seconds or more of ventricular rhythm at greater than 100 beats per minute) [ ]iv) Nonsustained ventricular tachycardia and ANY ONE of the following: [ ]1) Suspected cardiac ischemia as cause or consequence of ventricular tachycardia [ ]2) In setting of acute myocarditis [ ]b) Unstable cardiac conduction defects indicated by ANY ONE of the following(24)(25)(26): [ ]i) Type II second-degree atrioventricular block [ ]ii) Third-degree atrioventricular block [ ]iii) New-onset left bundle branch block with suspected myocardial ischemia [ ]c) Any heart rhythm and ANY ONE of the following(22)(23)(27)(28)( 29): [ ] i) Continuous long-term ECG monitoring needed (eg, initiation of drug requiring monitoring for more than 24 hours) [ ] ii) Patient has automatic implanted cardioverter defibrillator that is repeatedly firing, malfunctioning, or in need of immediate adjustment of settings beyond the scope of ambulatory or observation care. [ ]d) Heart rhythms of concern due to ANY ONE of the following: [ ]i) Hypotension [ ]ii) Respiratory distress [ ]iii) Association with other significant symptoms (eg, bradycardia with syncope or ongoing dizziness, supraventricular tachycardia with chest pain) (27)(28) (30) [ ] V. Severe heart failure as indicated by ANY ONE of the following ( 31)(32): [ ]a) Respiratory distress [ ]b) Hypotension [ ]c) Anasarca (refractory to outpatient therapy) [ ]d) Cardiac arrhythmias of immediate concern [ ]e) Myocardial ischemia [ ]. Respiratory abnormalities, including ANY ONE of the following(33)(34) (35)(36): [ ]a) Respiratory rate greater than 30 breaths per minute unresponsive to treatment [A] [ ]b) New saturation of arterial oxygen less than 90% [ ]c) New partial pressure of carbon dioxide greater than 44 mm Hg ( 5.9 kPa) [ ]d) Supplemental oxygen or respiratory treatments needed that are new or not performable at other levels of care [ ]e) New-onset cyanosis [ ]f) Inability to protect airway [ ]g) Chronic lung disease with severe deterioration (not responsive to emergency and observation care treatment as appropriate) as indicated by ANY ONE of the following(34)(36 ): [ ]i) SaO2 5% below baseline in patient with chronic hypoxemia [ ]ii) New requirement for supplemental oxygen to keep SaO2 at baseline or acceptable level [ ]iii) Required supplemental oxygen performable only in acute inpatient setting [ ]iv) Severe airflow or ventilation abnormalities [ ]v) Previously mobile patient unable to walk between rooms [ ]vi Inability to eat or sleep due to dyspnea [ ]vii) Rapid rate of exacerbation onset [ ]viii) Altered mental status ]VII. Severe airflow or ventilation abnormalities (not responsive to emergency and observation care treatment as appropriate) as indicated by ANY ONE of the following(33)(34)(35)(37): [ ]a) PCO2 greater than 42 mm Hg (5.6 kPa) and pH less than 7.35 (new ) [ ]b) Documented PCO2 increased more than 5 mm Hg (0.7 kPa) from disease baseline [ ]c) Airflow measurements [B] less than 60% of previous best or predicted (eg, peak expiratory flow rate less than 300 L/minute) despite intensive emergent treatment [C] [ ]d) Required respiratory treatments that are performable only in acute inpatient setting [ ]VIII. Impending or actual respiratory arrest ( Also use Respiratory Failure GRG for severe respiratory disease and long-term mechanical ventilation patients) [ ]IX. Neurologic abnormalities, including ANY ONE of the following: [ ]a) New findings that suggest ANY ONE of the following: [ ]i) TUBING TESTER infection(38) [ ]ii) Cerebral bleeding, ischemia, or vasospasm(39)(40) [ ]iii) Increased intracranial pressure, hydrocephalus, or cerebral edema(41)(42)(43) [ ]iv) Spinal cord injury(44) [ ]b) Uncontrolled seizures(45) [ ]c) New-onset coma (eg, Joanie coma scale score less than 9) or unexplained abnormal mental status (eg, Joanie coma scale score less than 14) [D](41)(46)(47) [ ]X. New-onset severe neurologic findings requiring inpatient care; examples include(42)(48)(49): [ ]a) Papilledema [ ]b) Cerebral edema [ ]c) Mass effect on CT scan [ ]XI. Suspected acute intra-abdominal process with peritoneal signs, abdominal mass, or similar findings (50)(51)(52) [ ]XII. Severe physiologic disorder remaining after emergency or observation level care (as appropriate) as indicated by ANY ONE of the following (53): [ ]a) Significant dehydration [ ]b) Diabetic ketoacidosis [ ]c) Hyperglycemic hyperosmolar state (eg, osmolality greater than 320 mOsm/kg (mmol/kg) [ ]d) Hypoglycemia [ ]e) Other (new) acid-base disorder with pH less than 7.35 or greater than 7.5(54) [ ]f) Thyroid storm (55) [ ]g) Myxedema coma (55) [ ]XIII. Abdominal abnormalities with ANY ONE of the following(56)(57): [ ]a) Absent bowel sounds with complete ileus [ ]b) Signs of intestinal obstruction or peritonitis [E] [ ]c) Nausea and vomiting that cannot be controlled with outpatient or observation care [ ]XIV. Acute renal failure as indicated by new onset of ANY ONE of the following(9)(10)(11)(12)(13): [ ]a) A 3-fold rise in serum creatinine from baseline [ ]b) Serum creatinine greater than 4 mg/dL (354 micromoles/L) with acute rise greater than 0.5 mg/dL (44.2 micromoles/L) [ ]c) Reduction of more than 75% in estimated glomerular filtration rate from baseline [ ]d) Estimated glomerular filtration rate less than 35 mL/min/ 1.73m2 (0.59 mL/sec/1.73m2) in child up to 18 years of age [ ]e) Cessation of urine output indicated by ALL of the following: [ ]i) Adequate volume status [ ]ii) Inadequate urine output as indicated by ANY ONE of the following: [ ]1) Urine output less than 0.3 mL/kg/hr for 24 hours [ ]2) Anuria (urine output less than 0.1 mL/kg/hr) for 12 hours [ ]XV. Significant uremic complications as indicated by ANY ONE of the following(58)(59)(60): [ ]a) Outpatient therapy is ineffective or not feasible for ANY ONE of the following: [ ]i) Severe heart failure [ ]ii) Severehypertension [ ]iii) Pleural effusion [ ]iv) Pericarditis or pericardial effusion [ ]b) Cardiac arrhythmias of immediate concern [ ]c) Intractable nausea or vomiting [ ]d) Recurrent seizures [ ]e) Encephalopathy [ ]f) Bleeding abnormalities (eg, platelet dysfunction) with active (eg, gastrointestinal) bleeding [ ]g) Dialysis indicated before long-term access or ambulatory arrangements can be made [ ]h) Significant metabolic or electrolyte abnormalities (eg, severe acidosis or hyperkalemia) [ ]XVI. High fever or other high-risk infection situation as indicated by ANY ONE of the following(61)(62)(63)(64): [ ]a) Outpatient and observation care antimicrobial treatment unavailable, not effective, or not appropriate [ ]b) Documented bacteremia [ ]c) Temperature greater than 40.5 degrees C (104.9 degrees F) ( oral) [ ]d) Temperature greater than 39.5 degrees C (103.1 degrees F) ( oral) or less than 36 degrees C (96.8 degrees F) (rectal) that does not respond to e treatment and observation care [ ] XVII. Temperature less than 95 degrees F (35 degrees C)(rectal)(65) [ ] XVIII. Severe nutritional abnormalities as indicated by ALL of the following (66)(67): [ ]a) Inability to tolerate or establish sufficient oral or other enteral nutrition in outpatient setting [ ]b) Parenteral nutrition regimen need that must be implemented on inpatient basis [ ] XIX. Severe electrolyte abnormalities indicated by ALL of the following(68) (69)(70): [ ]a) Electrolytes and associated findings are not as expected for patient baseline or acceptable treatment effects. [ ]b) Severe abnormalities indicated by ANY ONE of the following: [ ]i) Sodium less than 130 mEq/L (mmol/L) (new) [ ]ii)Sodium less than 135 mEq/L (mmol/L) with ANY ONE of the following: [ ]1) Uncorrectable (to near normal or chronic baseline) after trial of outpatient and emergency treatment [ ]2) Altered mental status [ ]3) Seizures [ ]4) Severe medical etiology requiring inpatient management (eg, heart failure, hypovolemia) [ ]iii) Sodium greater than 155 mEq/L (mmol/L) [ ]iv) Sodium greater than 150 mEq/L (mmol/L) with ANY ONE of the following: [ ]1) Uncorrectable (to near normal or chronic baseline) with outpatient and emergency treatment [ ]2) Altered mental status [ ]3) Seizures [ ]4) Severe medical etiology (eg, hypovolemia, diabetes insipidus) [ ]v) Potassium less than 2.5 mEq/L (mmol/L) despite outpatient and emergency treatment [ ]vi) Potassium less than 3 mEq/L (mmol/L) with ANY ONE of the following: [ ]1) Weakness [ ]2) Cardiac abnormality (eg, arrhythmia, conduction disturbance) [ ]3) Cardiac ischemia [ ]4) Ileus [ ]5) Ongoing medical cause requiring inpatient management (eg, acute renal wasting or SIADH) [ ]6) Other severe symptoms [ ]vii) Potassium greater than 6.5 mEq/L (mmol/L) [ ]viii) Potassium greater than 5 mEq/L (mmol/L) with ANY ONE of the following: [ ]1) Uncorrectable (to near normal or chronic baseline) with outpatient and emergency treatment [ ]2) Severe ECG findings [F] [ ]3) Acute worsening of renal failure (creatinine greater than 2.5 mg/dL (221 micromoles/L) or significant elevation for age and size) [ ]4) Severe weakness [ ]5) Severe medical etiology (eg, hemolysis, infection, drug overdose) [ ]ix) Calcium less than 7 mg/dL (1.75 mmol/L) despite outpatient and emergency treatment (72) [ ]x) Calcium less than 8 mg/dL (2 mmol/L) with significant symptoms or findings; examples include(72): [ ]1) Altered mental status [ ]2) Muscle spasms [ ]3) Seizures [ ]4) Breathing difficulty [ ]5) Cardiac abnormality (eg, arrhythmia or conduction disturbance) [ ]xi) Calcium greater than 14 mg/dL (3.5 mmol/L)(72) [ ]xii) Calcium greater than 12 mg/dL (3 mmol/L) with ANY ONE of the following(72): [ ]1) Uncorrectable (to near normal or chronic baseline) with outpatient and emergency treatment [ ]2) Significant dehydration or hypovolemia as indicated by ALL of the following(70)(73)(74): [ ]A. Not resolved with initial treatments [ ]B. Clinically significant dehydration as indicated by ANY ONE of the following: [ ]a. Vomiting refractory to outpatient treatment (ie, precluding oral rehydration) [ ]b. Inability to drink [ ]c. Hypernatremia or other electrolyte abnormality unable to be corrected with outpatient and emergency treatment [ ]d. Failure to remain hydrated with outpatient therapy [ ]e. Reduced urine output [ ]f. Hypotension [ ]g. Serious cause for dehydration requiring acute hospitalization (eg, bowel obstruction, increased intracranial pressure, infectious cause) [ ]h. Child with ANY ONE of the following(75): [ ]1) Severe abdominal tenderness [ ]2) Adequate care not available at home [ ]3) Severe dehydration ( greater than 9% loss of body weight) [ ]4) Significant symptoms or findings; examples include: [ ]A. Altered mental status [ ]B. Cardiac abnormality (eg, arrhythmia, conduction disturbance) [ ]C. Malignant etiology requiring inpatient treatment [ ]xiii) Phosphorus less than 1 mg/dL (0.32 mmol/L) [ ]xiv) Phosphorus less than 1.5 mg/dL (0.48 mmol/L) with ANY ONE of the following: [ ]1) Patient unresponsive to outpatient and emergency treatment [ ]2) Significant symptoms or findings; examples include: [ ]A. Weakness [ ]B. Altered mental status [ ]C. Breathing difficulty [ ]D. Seizures [ ]E. Rhabdomyolysis [ ]xv) Phosphorus greater than 10 mg/dL (3.2 mmol/L) [ ]xvi) Phosphorus greater than 4.5 mg/dL (1.45 mmol/L) (new) with ANY ONE of the following: [ ]1) Severe medical etiology (eg, crush injury, acute renal failure) [ ]2) Associated hypocalcemia with significant findings; examples include: [ ]A. Neurologic symptoms [ ]B. Altered mental status [ ]C. Muscle spasms [ ]D. Seizures [ ]E. Breathing difficulty [ ]F. Cardiac abnormality (eg, arrhythmia, conduction disturbance) [ ]xvii) Magnesium less than 1 mg/dL (0.41 mmol/L) [ ]xviii) Magnesium less than 1.5 mg/dL (0.62 mmol/L) with ANY ONE of the following: [ ]1) Patient unresponsive to outpatient and emergency treatment [ ]2) Associated hypocalcemia with significant findings; examples include: [ ]A. Altered mental status [ ]B. Muscle spasms [ ]C. Seizures [ ]D. Breathing difficulty [ ]E. Cardiac abnormality (eg, arrhythmia , conduction disturbance) [ ]3) Associated hypokalemia (potassium less than 3 mEq/L (mmol/L)) with risk of arrhythmia [ ]xix) Magnesium greater than 4 mEq/L (2 mmol/L) [ ]xx) Magnesium greater than 2.5 mEq/L (1.25 mmol/L) with significant symptoms or findings; examples include: [ ]1) Weakness [ ]2) Altered mental status [ ]3) Cardiac abnormality (eg, arrhythmia, conduction disturbance) [ ]4) Breathing difficulty [ ]5) Severe medical etiology (eg, renal failure, hypovolemia) [ ]xxi) Uric acid greater than 20 mg/dL (1190 micromoles/L)(76) [ ]xxii) Uric acid greater than 8 mg/dL (476 micromoles/L) with significant symptoms or findings of tumor lysis syndrome; examples include(76): [ ]1) Creatinine greater than 1.5 times upper limit of normal [ ]2) Cardiac abnormality (eg, arrhythmia, conduction disturbance) [ ]3) Seizure [ ]XX. Acute blood loss causing significant abnormality as indicated by ANY ONE of the following(77)(78): [ ]a) Hemoglobin less than 10 g/dL (100 g/L) (not baseline) [ ]b) Hematocrit less than 30% (0.30) (not baseline) [ ]c) Repeat hematocrit decreased more than 2% (0.02) [ ]d) Uncontrolled bleeding [ ]XXI. Severe anemia indicated by ANY ONE of the following(78)(79): [ ]a) Altered mental status [ ]b) Chest pain [ ]c) Exertional dyspnea [ ]d) Syncope [ ]e) Other findings suggesting inadequate perfusion [ ]f) Treatment with transfusion or volume replacement is ineffective at resolving ANY ONE of the following [G]: [ ]i) Tachycardia for age [ ]ii) Orthostatic vital sign changes as indicated by ANY ONE of the following(80): [ ]1) Fall in SBP of 20 mm Hg or more 1 to 3 minutes after patient sits or stands from recumbent position [ ]2) Fall in DBP of 10 mm Hg or more 1 to 3 minutes after patient sits or stands from recumbent position [ ]XXII. High-risk low platelet count as indicated by ANY ONE of the following( 81)(82): [ ]a) Severe or life-threatening bleeding (eg, intracranial, major gastrointestinal, or extensive mucosal bleeding), with any reduced platelet count [ ]b) Platelet count less than 20,000/mm3 (20 x109/L) with any active bleeding [ ]c) Platelet count less than 10,000/mm3 (10 x109/L) with minor purpura or petechiae [ ]d) Platelet count less than 5000/mm3 (5 x109/L) [ ]e) Low platelet count with hemolytic anemia [ ]XXIII. Disseminated intravascular coagulation(77)(83) [ ]XXIV. Severe adverse drug or systemic toxin reaction requiring inpatient treatment; examples include(84)(85): [ ]a) Serotonin syndrome(86) [ ]b) Neuroleptic malignant syndrome(86) [ ]c) Cholinergic syndrome with severe symptoms (eg, bronchorrhea, weakness, mental status changes, seizures) [ ]d) Sympathetic syndrome with severe symptoms (eg, seizures, mental status changes, cardiac dysrhythmias) [ ]e) Anticholinergic syndrome [ ]XXV. Severe pain requiring acute inpatient management as indicated by ALL of the following (87)(88)(89): [ ]a) Continuous or frequent (eg, every 2 to 4 hours) parenteral analgesics required [H] [ ]b) Rapid improvement expected from treatment or acute intervention (eg, surgery, anesthesia procedure) [ ]XXVI.Severe behavioral health issues judged unmanageable at a lower level of care (eg, residential) in a patient who is ANY ONE of the following(91) [ ]a) Acutely suicidal [ ]b) A danger to self (eg, self-mutilating or suicidal behavior) [ ]c) A danger to others (eg, assaultive or homicidal behavior) [ ]d) Incapacitated because of grave disability (eg, inability to provide for self at lower level of care) (92) [ X]XXVII. Inpatient monitoring needed; examples include(1)(3)(87)(93)(94)(95)( 96): [ X]a) Vital signs, neurologic signs, or vascular checks more frequently than every 4 hours [ ]b) Cardiac or respiratory monitoring beyond the scope (eg, over 24 hours) of observation care [ ]c) Pulmonary artery catheter monitoring [ ]d) Suspected compartment syndrome(97) (98) [ ]e) Cerebral bleeding, hydrocephalus, or vasospasm monitoring [ ]f) Increased intracranial pressure or cerebral edema monitoring [ ]g) monitoring [ ]XXVIII. Treatment requiring inpatient care; examples include: [ ]a) IV fluid to replace significant ongoing losses (greater than 3 L/m2 per day)(53) [ ]b) High concentration oxygen (greater than 40%)(33)(99)(100) [ ]c) Frequent respiratory therapy (more frequently than every 4 hours) to maintain airflow rates greater than 60% of baseline(33)(99)(100) [ ]d) Epidural analgesia(87) [ ]e) IV anticoagulation, vasoactive, or antiarrhythmic medication(19 )(23) [ ]f) Acute thrombolytics (generally require 24 hours of observation )(101)(102) [ ]XXIX. Emergency procedures needed; examples include: [ ]a) Emergency inpatient surgery [ ]b) Temporary pacemaker placement(103) [ ]c) Chest tube placement with active evacuation (eg, suction, drainage)(104) [ ]d) Emergent cardioversion(105) [ ]e) Emergent cardiac or vascular procedures (eg, cardiac catheterization, angioplasty) (17)(18) [ ]f) Emergent dialysis access placement and institution(10)(106) [ ]g) Emergent pericardiocentesis(107) [ ]h) Emergent plasmapheresis or leukapheresis(83) [ ]i) Emergent tracheostomy The original [employer] content created by [employer] has been revised. The portions of the content which have been revised are identified through the use of italic text or in bold, and [facility] [employer] has neither reviewed nor approved the modified material. All other unmodified content is copyright [employer]. Please see references footnoted in the original [employer] edition 2016 Admission Criteria Met?: Yes NAVEEN LAROSE Mar 01, 2017 06:30
[2017-03-01 07:00] VITALS: BP 117/41
[2017-03-01] MEDS: INSULIN ASPART 300 UNITS/3 ML INSULN.PEN SQ SCH ×4 (07:30→11:30)
[2017-03-01] MEDS: SEVELAMER CARBONATE 800 MG TABLET. PO SCH ×2 (08:04→13:38)
[2017-03-01] MEDS: CITALOPRAM 10 MG TABLET. PO SCH (08:04)
[2017-03-01] MEDS: ASPIRIN ENTERIC COATED 81 MG TABLET.DR. PO SCH (08:04)
[2017-03-01] MEDS: FOLIC/VIT B COMP W-C (RENAL) TABLET. PO SCH (08:04)
[2017-03-01] MEDS: HYDROcodone/APAP 5/325MG 1 TAB TABLET PO SCH (08:04)
[2017-03-01] MEDS ORDERED: IV NORMAL SALINE 1000ML BAG 1,000 ML IV PRN (08:15)
[2017-03-01] MEDS ORDERED: DIALYSIS PATIENT. MC PRN ×2 (08:15)
[2017-03-01] MEDS: amLODIPine BESYLATE 10 MG TABLET PO SCH (09:00)
--- NOTE | 2017-03-01 09:22 | PDOC3 ---
TIMMY-MAICO GARCÍA FIELD ACCOUNT MANAGER 03/01/17 0922: IM DISCHARGE & PROGRESS NOTES Date of Admission Date of Admission Date of Admission: Feb 27, 2017 at 18:00 Date of Discharge Date of Discharge 03/01/17 Primary Diagnosis Primary Diagnosis FINAL DIAGNOSIS: 1. Malfunctioning dialysis catheter s/p TDC placed in IR 02/28/17 2. End-stage renal disease, on hemodialysis. 3. Congestive heart failure diastolic EF 55% stable 4. Diabetes mellitus with nephropathy and neuropathy. 5. 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 6. Essential tremors. 7. Status post appendectomy and cholecystectomy. 8. Anemia chronic disease renal /Fe def 9. Anxiety. 10. Depression. 11. Hypothyroidism 12. moderate chronic PCL malnutrition 13. severe weakness and debility 14. lung nodule x2 stable per CT last admit 15. revision fistula LUE 02/21/17 with transposition needed-treatment OP per vascular surgery Consults Consults Cassius Werner MD Procedures Procedures HD in patient x 2 Labs Labs Laboratory Tests Test 02/27/17 18:15 02/28/17 07:39 02/28/17 09:25 02/28/17 10:19 White Blood Count 4.7 x10^3/uL (4.0-11.0) Red Blood Count 3.22 x10^6/uL (3.50-5.40) Hemoglobin 9.2 g/dL (12.0-15.5) Hematocrit 28.0 % (36.0-47.0) Mean Corpuscular Volume 87 fL (79-100) Mean Corpuscular Hemoglobin 28 pg (25-35) Mean Corpuscular Hemoglobin Concent 33 g/dL (31-37) Red Cell Distribution Width 13.6 % (11.5-14.5) Platelet Count 224 x10^3/uL (140-400) Neutrophils (%) (Auto) 54 % (31-73) Lymphocytes (%) (Auto) 33 % (24-48) Monocytes (%) (Auto) 7 % (0-9) Eosinophils (%) (Auto) 5 % (0-3) Basophils (%) (Auto) 1 % (0-3) Neutrophils # (Auto) 2.6 x10^3uL (1.8-7.7) Lymphocytes # (Auto) 1.5 x10^3/uL (1.0-4.8) Monocytes # (Auto) 0.3 x10^3/uL (0.0-1.1) Eosinophils # (Auto) 0.3 x10^3/uL (0.0-0.7) Basophils # (Auto) 0.0 x10^3/uL (0.0-0.2) Sodium Level 140 mmol/L (136-145) Potassium Level 4.3 mmol/L (3.5-5.1) Chloride Level 102 mmol/L (98-107) Carbon Dioxide Level 29 mmol/L (21-32) Anion Gap 9 (6-14) Blood Urea Nitrogen 34 mg/dL (7-20) Creatinine 6.8 mg/dL (0.6-1.0) Estimated GFR (Cockcroft-Gault) 7.2 BUN/Creatinine Ratio 5 (6-20) Glucose Level 163 mg/dL (70-99) Calcium Level 7.9 mg/dL (8.5-10.1) Total Bilirubin 0.3 mg/dL (0.2-1.0) Aspartate Amino Transf (AST/SGOT) 19 U/L (15-37) Alanine Aminotransferase (ALT/SGPT) 6 U/L (14-59) Alkaline Phosphatase 74 U/L (46-116) Total Protein 7.6 g/dL (6.4-8.2) Albumin 3.0 g/dL (3.4-5.0) Albumin/Globulin Ratio 0.7 (1.0-1.7) Glucose (Fingerstick) 137 mg/dL (70-99) 142 mg/dL (70-99) Prothrombin Time 13.5 SEC (11.7-14.0) Prothromb Time International Ratio 1.1 (0.8-1.1) Hepatitis B Surface Antigen Negative (Negative) Hepatitis B Surface Antibody Non reactive (.) Test 02/28/17 16:36 02/28/17 20:25 03/01/17 05:02 03/01/17 07:54 Glucose (Fingerstick) 141 mg/dL (70-99) 256 mg/dL (70-99) 140 mg/dL (70-99) White Blood Count 4.8 x10^3/uL (4.0-11.0) Red Blood Count 3.12 x10^6/uL (3.50-5.40) Hemoglobin 8.8 g/dL (12.0-15.5) Hematocrit 26.5 % (36.0-47.0) Mean Corpuscular Volume 85 fL (79-100) Mean Corpuscular Hemoglobin 28 pg (25-35) Mean Corpuscular Hemoglobin Concent 33 g/dL (31-37) Red Cell Distribution Width 13.4 % (11.5-14.5) Platelet Count 218 x10^3/uL (140-400) Neutrophils (%) (Auto) 49 % (31-73) Lymphocytes (%) (Auto) 35 % (24-48) Monocytes (%) (Auto) 10 % (0-9) Eosinophils (%) (Auto) 5 % (0-3) Basophils (%) (Auto) 1 % (0-3) Neutrophils # (Auto) 2.3 x10^3uL (1.8-7.7) Lymphocytes # (Auto) 1.7 x10^3/uL (1.0-4.8) Monocytes # (Auto) 0.5 x10^3/uL (0.0-1.1) Eosinophils # (Auto) 0.3 x10^3/uL (0.0-0.7) Basophils # (Auto) 0.0 x10^3/uL (0.0-0.2) Sodium Level 140 mmol/L (136-145) Potassium Level 4.4 mmol/L (3.5-5.1) Chloride Level 101 mmol/L (98-107) Carbon Dioxide Level 31 mmol/L (21-32) Anion Gap 8 (6-14) Blood Urea Nitrogen 23 mg/dL (7-20) Creatinine 5.8 mg/dL (0.6-1.0) Estimated GFR (Cockcroft-Gault) 8.6 Glucose Level 179 mg/dL (70-99) Calcium Level 8.4 mg/dL (8.5-10.1) Magnesium Level 2.1 mg/dL (1.8-2.4) Medications Medications Medications reviewed and reconciled for discharge. Brief hospital course Brief hospital course This 76 year old Afrcian German female who presented with malfuctioning dialysis catheter was admitted. The following is a summary of her treatment: malfunctioning dialysis catheter IR consulted-replace tunneled dialysis catheter TDC placed 02/28/17 and HD w/o problem ESRD nephrology consulted HD MWF-did not receive dialysis 09/27 dialyze today after TC replaced and plan DC tomorrow after dialysis schedule resumed. anemia CD ADmit Hgb 9.2 03/01 8.8 monitor DVT/GI prophylaxis SCD/KELVIN PPI For more details regarding the past history, family history, social history, surgical history and other details, please refer to History and Physical. This SPINDLE SANDER spoke with staff and attempted to DC 02/28/11. Staff reported Dr. Werner and Dr. Hart discussed and pt would DC home today after dialysis. Staff note reviewed and this SPINDLE SANDER not made aware Dr. Werner contacted by phone and agreed with discharge if Dr. Hart ordered. Order written to discharge home when spoke with staff 02/28/17 when ok with nephrology and orders for discharge completed . Patient not discharged. Plan DC home today after dialysis. F/U in office in 3-5 days. Lortab prescribed by different MD and she has at home. Please see discharge orders. Subjective doing okay. Seen in dialysis Objective alert no distress. Vitals Vital Signs Date Time Temp Pulse Resp B/P (MAP) Pulse Ox O2 Delivery O2 Flow Rate FiO2 03/01/17 08:04 18 Room Air 03/01/17 07:00 98.2 56 117/41 (66) 95 98.2 02/28/17 21:38 2.0 Physical Exam General appearance - alert,well appearing, and in no distress Mental Status - alert, oriented to person, place, and time, affect appropriate to mood Head - normal Chest - clear to auscultation, no wheezes, rales or rhonchi, symmetric air entry Heart - S1 and S2 normal Abdomen - soft, nontender, nondistended, no masses or organomegaly Neurological - no acute focal neurological deficits noted. Musculoskeletal - no muscular tenderness noted Extremities - no pedal edema Skin - warm and dry AV fistula=old incision RUE upper arm approximated w/o signs infection. Medications Medications reviewed. Allergy Allergies Coded Allergies Type Severity Reaction Last Updated Verified morphine Allergy Severe 06/12/14 Yes codeine Allergy Intermediate HIVES 06/12/14 Yes Follow up in 3-5 days. Disposition: Home Comments Discharge Management - 35 minutes. For other details please refer to discharge instructions SHADI HART MD 03/01/17 1059: IM DISCHARGE & PROGRESS NOTES Brief hospital course Brief hospital course D/w - new dialysis catheter not functioning well. The patient was seen and examined by me. Chart reviewed and plan of care formulated. Discussed with, reviewed and agree with RACING SECRETARY AND HANDICAPPER's notes, plan of care and orders with modifications as necessary. For more details regarding further plans, please refer to the orders. MAICO IQBAL APRN Mar 01, 2017 09:22 SHADI HART MD Mar 01, 2017 10:59
--- NOTE | 2017-03-01 11:49 | PDOC ---
Renal-Progress Notes Subjective Notes Notes NO COMPLAINTS History of Present Illness Hx of present illness NO CHANGE Vitals Vitals Vital Signs Date Time Temp Pulse Resp B/P (MAP) Pulse Ox O2 Delivery O2 Flow Rate FiO2 03/01/17 08:04 18 Room Air 03/01/17 07:00 98.2 56 117/41 (66) 95 98.2 02/28/17 21:38 2.0 Weight Weight [ ] I.O. Intake and Output Intake and Output 03/01/17 07:00 Intake Total 900 ml Balance 900 ml Intake Oral 900 ml # Voids 5 # Bowel Movements 2 Labs Labs Laboratory Tests Test 02/28/17 16:36 02/28/17 20:25 03/01/17 05:02 03/01/17 07:54 Glucose (Fingerstick) 141 mg/dL (70-99) 256 mg/dL (70-99) 140 mg/dL (70-99) White Blood Count 4.8 x10^3/uL (4.0-11.0) Red Blood Count 3.12 x10^6/uL (3.50-5.40) Hemoglobin 8.8 g/dL (12.0-15.5) Hematocrit 26.5 % (36.0-47.0) Mean Corpuscular Volume 85 fL (79-100) Mean Corpuscular Hemoglobin 28 pg (25-35) Mean Corpuscular Hemoglobin Concent 33 g/dL (31-37) Red Cell Distribution Width 13.4 % (11.5-14.5) Platelet Count 218 x10^3/uL (140-400) Neutrophils (%) (Auto) 49 % (31-73) Lymphocytes (%) (Auto) 35 % (24-48) Monocytes (%) (Auto) 10 % (0-9) Eosinophils (%) (Auto) 5 % (0-3) Basophils (%) (Auto) 1 % (0-3) Neutrophils # (Auto) 2.3 x10^3uL (1.8-7.7) Lymphocytes # (Auto) 1.7 x10^3/uL (1.0-4.8) Monocytes # (Auto) 0.5 x10^3/uL (0.0-1.1) Eosinophils # (Auto) 0.3 x10^3/uL (0.0-0.7) Basophils # (Auto) 0.0 x10^3/uL (0.0-0.2) Sodium Level 140 mmol/L (136-145) Potassium Level 4.4 mmol/L (3.5-5.1) Chloride Level 101 mmol/L (98-107) Carbon Dioxide Level 31 mmol/L (21-32) Anion Gap 8 (6-14) Blood Urea Nitrogen 23 mg/dL (7-20) Creatinine 5.8 mg/dL (0.6-1.0) Estimated GFR (Cockcroft-Gault) 8.6 Glucose Level 179 mg/dL (70-99) Calcium Level 8.4 mg/dL (8.5-10.1) Magnesium Level 2.1 mg/dL (1.8-2.4) Review of Systems Constitutional: yes: weakness, alert, oriented Ears/Nose/Throat: Yes: no symptom reported Eyes: Yes: no symptom reported Pulmonary: Yes no symptom reported Cardiovascular: Yes no symptom reported Gastrointestional: Yes: no symptom reported Genitourinary: Yes: no symptom reported Skin: Yes no symptom reported Psychiatric/Neurological: Yes: no symptom reported Physical Exam General Appearance: no apparent distress Skin: warm Respiratory: bilateral CTA Heart: S1S2, RRR Abdomen: soft, bowel sounds present Genitourinary: bladder flat Extremities: pulses present Neurology: alert Musculoskeletal: Osteoarthritis Assessment Assessment IMP NON FUNCTIONING HD CATHETER ANEMIA HTN ESRD PLAN HAS NEW TUNNELED HD CATHETER BUT STILL NOT ABLE TO REACH GOAL BLOOD FLOW RATE WILL CONTINUE WITH THIS FOR NOW IT IS AT LEAST FUNCTIONING TO SOME DEGREE WILL BE ABLE TO USE HER RIGHT ARM BRACHIOCEPHALIC FISTULA IN ABOUT 3 WEEKS SHE RECENTLY UNDERWENT TRANSPOSITION OF THIS RECENTLY HD TODAY UF TO DW OK TO D/C TODAY AFTER HD D/W ATTENDING KEM FOSTER MD Mar 01, 2017 11:49
[2017-03-01] MEDS: ISOSORBIDE MONONITRATE ER 30 MG TAB.ER.24H PO SCH (13:39)
[2017-03-01 13:43] VITALS: BP 125/55
== END 2017-03-01 14:49 | disposition home or self-care (01) | DRG 286 ==
LOC: ER 16:59 → 5 SOUTH 18:00
PROVIDERS: ADMIT Internal Medicine; ATTEND Internal Medicine
PROC: 02H633Z Insertion of Infusion Device into Right Atrium, Percutaneous Approach (ICD-10-PCS; principal; 2017-02-28)
PROC: B2141ZZ Fluoroscopy of Right Heart using Low Osmolar Contrast (ICD-10-PCS; 2017-02-28)
DX: T82.41XA Breakdown (mechanical) of vascular dialysis catheter, initial encounter (principal); N18.6 End stage renal disease; E44.0 Moderate protein-calorie malnutrition; I13.2 Hypertensive heart and chronic kidney disease with heart failure and with stage 5 chronic kidney disease, or end stage renal disease; I50.32 Chronic diastolic (congestive) heart failure; N25.81 Secondary hyperparathyroidism of renal origin; D63.8 Anemia in other chronic diseases classified elsewhere; E03.9 Hypothyroidism, unspecified; E10.21 Type 1 diabetes mellitus with diabetic nephropathy; E10.22 Type 1 diabetes mellitus with diabetic chronic kidney disease; E61.1 Iron deficiency; E78.5 Hyperlipidemia, unspecified; F32.9 Major depressive disorder, single episode, unspecified; F41.9 Anxiety disorder, unspecified; G25.0 Essential tremor; K21.9 Gastro-esophageal reflux disease without esophagitis; M06.9 Rheumatoid arthritis, unspecified; Y71.2 Prosthetic and other implants, materials and accessory cardiovascular devices associated with adverse incidents; Z79.4 Long term (current) use of insulin; I69.341 Monoplegia of lower limb following cerebral infarction affecting right dominant side; Z80.9 Family history of malignant neoplasm, unspecified; Z82.49 Family history of ischemic heart disease and other diseases of the circulatory system; Z83.3 Family history of diabetes mellitus; Z86.711 Personal history of pulmonary embolism; Z90.49 Acquired absence of other specified parts of digestive tract; Z99.2 Dependence on renal dialysis; Z88.5 Allergy status to narcotic agent; Z88.6 Allergy status to analgesic agent; Z68.39 Body mass index [BMI] 39.0-39.9, adult
CPT/HCPCS: 36415; 36581; 36598; 71010; 77001; 80048; 80053; 82962; 83735; 85027; 85610; 86706; 87340; 87341; 99152; 99153; 99285; A4215; C1750; C1769; J0690; J0881; J1644; J1815; J2250; J3010; J3490; Q9967

== ENCOUNTER 2017-09-02 05:08 | Inpatient (IN) | payer MEDICARE, OTHER ==
[2017-09-02 05:24] LABS: POC GLUCOSE 191 mg/dL (70-99)
[2017-09-02] MEDS ORDERED: fentaNYL PF VIAL 100 MCG/2 ML VIAL IV (05:45)
[2017-09-02 05:51] LABS: BASE EXCESS COOX -3 mmol/L (-3-3); CARBON MONOXIDE 1.2 % (0.0-1.9); HCO3 COOX 22 mmol/L (21-28); METHEMOGLOBIN 0.4 % (0.0-1.9); OXYHEMOGLOBIN 93.7 %; PCO2 COOX 39 mmHg (35-46); PH COOX 7.37 (7.35-7.45); PO2 COOX 76 mmHg (65-108); SAT O2 COOX 95 % (92-99); TOTAL HEMOGLOBIN 11.3 g/dL
[2017-09-02] MEDS: PIPERACILLIN/TAZOBACTAM 3.375 GM in IV NORMAL SALINE 50ML 50 ML IV (05:55)
[2017-09-02] MEDS: IV NORMAL SALINE 500ML BAG 500 ML IV (05:55)
[2017-09-02 05:56] LABS: BASO % 0 % (0-3); EOS % 0 % (0-3); HEMATOCRIT 35.4 % (36.0-47.0); HEMOGLOBIN 11.4 g/dL (12.0-15.5); LYMPH # 1.3 x10^3/uL (1.0-4.8); LYMPH % 6 % (24-48); MEAN CORPUSCULAR HEMOGLOBIN 28 pg (25-35); MEAN CORPUSCULAR HGB CONC 32 g/dL (31-37); MEAN CORPUSCULAR VOLUME 87 fL (79-100); MONO # 1.1 x10^3/uL (0.0-1.1); MONO % 5 % (0-9); NEUT # 18.8 x10^3uL (1.8-7.7); NEUT % 88 % (31-73); PLATELET COUNT 218 x10^3/uL (140-400); RED BLOOD COUNT 4.06 x10^6/uL (3.50-5.40); RED CELL DISTRIBUTION WIDTH 14.6 % (11.5-14.5); WHITE BLOOD COUNT 21.3 x10^3/uL (4.0-11.0)
[2017-09-02] MEDS: ACETAMINOPHEN 500 MG TABLET PO (05:56)
[2017-09-02] MEDS: ONDANSETRON PF 4 MG/2 ML VIAL. IV (05:56)
[2017-09-02 05:57] LABS: INR 1.4 (0.8-1.1); PROTHROMBIN TIME PATIENT 16.7 SEC (11.7-14.0)
[2017-09-02 05:58] LABS: TROPONINI 0.033 ng/mL (0.000-0.055)
[2017-09-02 05:58] LABS: INFLUENZA A PATIENT NEGATIVE (NEGATIVE); INFLUENZA B PATIENT NEGATIVE (NEGATIVE); OBC FLU VALID; PARTIAL THROMBOPLASTIN TIME 30 SEC (24-38)
[2017-09-02 05:59] LABS: ADD MAN DIFF? YES
[2017-09-02] MEDS: IPRATRPIUM/ALBUTEROL 0.5/2.5MG 3 ML NEBU. NEB ×5 (06:00→20:00)
[2017-09-02 06:02] LABS: NT-PRO BNP 16720 pg/mL (0-449)
[2017-09-02 06:06] LABS: BLOOD UREA NITROGEN 53 mg/dL (7-20); BUN/CREATININE RATIO 7 (6-20); CALCIUM 8.9 mg/dL (8.5-10.1); CREATININE 7.7 mg/dL (0.6-1.0); GLUCOSE 224 mg/dL (70-99)
[2017-09-02 06:07] LABS: ALBUMIN 3.1 g/dL (3.4-5.0); ALBUMIN/GLOBULIN RATIO 0.6 (1.0-1.7); ALK PHOS 92 U/L (46-116); ALT (SGPT) 21 U/L (14-59); ANION GAP 20 (6-14); AST (SGOT) 20 U/L (15-37); CARBON DIOXIDE 22 mmol/L (21-32); CHLORIDE 99 mmol/L (98-107); GFR 6.2; LIPASE 81 U/L (73-393); MAGNESIUM 1.7 mg/dL (1.8-2.4); POTASSIUM 3.8 mmol/L (3.5-5.1); SODIUM 141 mmol/L (136-145); TOTAL BILIRUBIN 0.6 mg/dL (0.2-1.0); TOTAL PROTEIN 7.9 g/dL (6.4-8.2)
[2017-09-02 06:10] LABS: LACTIC ACID 8.5 mmol/L (0.4-2.0)
[2017-09-02 06:14] LABS: BILIRUBIN,URINE SMALL (NEG); CLARITY,URINE CLOUDY; COLOR,URINE RED; GLUCOSE,URINE NEGATIVE (NEG); NITRITE,URINE NEGATIVE (NEG); PH,URINE 7.5; PROTEIN,URINE >=300 mg/dL (NEG-TRACE); UROBILINOGEN,URINE 0.2 mg/dL (0.2 mg/dL)
[2017-09-02] MEDS ORDERED: levOFLOXacin PER PHARMACY. MC (06:15)
[2017-09-02 06:24] LABS: BACTERIA,URINE MANY /HPF (0-FEW); RBC,URINE OCC /HPF (0-2); WBC,URINE TNTC /HPF (0-4)
[2017-09-02] MEDS: VANCOMYCIN 2 GM in IV DEXTROSE 5 %-0.2 % NACL 500 ML IV (06:51)
[2017-09-02 07:58] LABS: POC GLUCOSE 243 mg/dL (70-99)
[2017-09-02] MEDS ORDERED: diphenhydrAMINE HCL 25 MG CAPSULE PO (08:30)
[2017-09-02 08:47] LABS: % BANDS 21 % (0-9); % LYMPHS 6 % (24-48); % METAS 3 % (0-0); % MONOS 7 % (0-10); % SEGS 63 % (35-66); PLT ESTIMATE ADEQUATE (ADEQUATE)
[2017-09-02 08:48] LABS: TOXIC VACUOLATION SLIGHT
[2017-09-02] MEDS: VANCOMYCIN PER PHARMACY MC (08:50)
[2017-09-02] MEDS: LEVOTHYROXINE 100 MCG TABLET PO (10:05)
[2017-09-02] MEDS: FOLIC/VIT B COMP W-C (RENAL) TABLET. PO (10:05)
[2017-09-02] MEDS: CITALOPRAM 10 MG TABLET. PO (10:05)
[2017-09-02] MEDS: ASPIRIN ENTERIC COATED 81 MG TABLET.DR. PO (10:05)
[2017-09-02] MEDS: OSELTAMIVIR 30 MG CAPSULE PO (10:05)
[2017-09-02] MEDS: SEVELAMER CARBONATE 800 MG TABLET. PO ×3 (10:05→17:09)
[2017-09-02] MEDS ORDERED: IV NORMAL SALINE 1000ML BAG 1,000 ML IV ×2 (10:16)
[2017-09-02] MEDS ORDERED: diphenhydrAMINE 50 MG/ML VIAL IV ×2 (10:30)
[2017-09-02] MEDS ORDERED: DIALYSIS PATIENT. MC ×2 (10:30)
[2017-09-02] MEDS ORDERED: ACETAMINOPHEN 500 MG TABLET PO (10:30)
[2017-09-02 10:31] LABS: LACTIC ACID 4.6 mmol/L (0.4-2.0)
[2017-09-02] MEDS: INSULIN ASPART 300 UNITS/3 ML INSULN.PEN SQ ×2 (11:08→16:43)
[2017-09-02 11:19] LABS: POC GLUCOSE 205 mg/dL (70-99)
[2017-09-02] MEDS: ALBUMIN HUMAN 25% 200 ML IV (11:27)
[2017-09-02] MEDS: ACETAMINOPHEN 325 MG TABLET. PO (15:39)
[2017-09-02] MEDS ORDERED: LIDOCAINE WITH 8.4% SOD BICARB 3 ML DISP.SYRIN. (15:41)
[2017-09-02] MEDS ORDERED: HEPARIN for IV BOLUS 10,000 UNIT/10 ML VIAL. (15:41)
[2017-09-02] MEDS: LIDOCAINE WITH 8.4% SOD BICARB 3 ML DISP.SYRIN. INJ (16:19)
[2017-09-02] MEDS: NOREPINEPHRIN PREMIX 250 ML IV (16:35)
[2017-09-02 16:51] LABS: POC GLUCOSE 165 mg/dL (70-99)
[2017-09-02 21:14] LABS: MRSA BY PCR Negative (Negative)
[2017-09-02] MEDS: LACTOBACILLUS RHAMNOSUS GG 1 CAPSULE. PO (21:19)
[2017-09-02] MEDS: CETIRIZINE HCL 10 MG TABLET. PO (21:20)
[2017-09-02] MEDS: HEPARIN PF for SUB-Q USE 5,000 UNIT/0.5 ML VIAL. SQ (21:27)
[2017-09-03 05:32] LABS: ADD MAN DIFF? NO
[2017-09-03 05:36] LABS: BASO # 0.1 x10^3/uL (0.0-0.2); BASO % 0 % (0-3); EOS # 0.1 x10^3/uL (0.0-0.7); EOS % 1 % (0-3); HEMATOCRIT 27.3 % (36.0-47.0); HEMOGLOBIN 8.7 g/dL (12.0-15.5); LYMPH # 1.6 x10^3/uL (1.0-4.8); LYMPH % 9 % (24-48); MEAN CORPUSCULAR HEMOGLOBIN 28 pg (25-35); MEAN CORPUSCULAR HGB CONC 32 g/dL (31-37); MEAN CORPUSCULAR VOLUME 86 fL (79-100); MONO # 0.7 x10^3/uL (0.0-1.1); MONO % 4 % (0-9); NEUT # 14.8 x10^3uL (1.8-7.7); NEUT % 86 % (31-73); PLATELET COUNT 131 x10^3/uL (140-400); RED BLOOD COUNT 3.18 x10^6/uL (3.50-5.40); RED CELL DISTRIBUTION WIDTH 14.6 % (11.5-14.5); WHITE BLOOD COUNT 17.2 x10^3/uL (4.0-11.0)
[2017-09-03 06:03] LABS: ANION GAP 11 (6-14); BLOOD UREA NITROGEN 60 mg/dL (7-20); CARBON DIOXIDE 27 mmol/L (21-32); CHLORIDE 101 mmol/L (98-107); GFR 6.9; GLUCOSE 159 mg/dL (70-99); POTASSIUM 3.9 mmol/L (3.5-5.1); SODIUM 139 mmol/L (136-145)
[2017-09-03 06:08] LABS: LACTIC ACID 0.7 mmol/L (0.4-2.0)
[2017-09-03] MEDS: IPRATRPIUM/ALBUTEROL 0.5/2.5MG 3 ML NEBU. NEB ×4 (08:01→20:24)
[2017-09-03] MEDS: CITALOPRAM 10 MG TABLET. PO (08:18)
[2017-09-03] MEDS: OSELTAMIVIR 30 MG CAPSULE PO (08:18)
[2017-09-03] MEDS: SEVELAMER CARBONATE 800 MG TABLET. PO ×3 (08:18→18:07)
[2017-09-03] MEDS: FOLIC/VIT B COMP W-C (RENAL) TABLET. PO (08:18)
[2017-09-03] MEDS: LEVOTHYROXINE 100 MCG TABLET PO (08:18)
[2017-09-03] MEDS: LACTOBACILLUS RHAMNOSUS GG 1 CAPSULE. PO ×2 (08:18→21:03)
[2017-09-03] MEDS: ASPIRIN ENTERIC COATED 81 MG TABLET.DR. PO (08:18)
[2017-09-03] MEDS: HEPARIN PF for SUB-Q USE 5,000 UNIT/0.5 ML VIAL. SQ ×2 (08:27→21:08)
[2017-09-03] MEDS: INSULIN ASPART 300 UNITS/3 ML INSULN.PEN SQ ×3 (08:30→16:30)
[2017-09-03 10:24] LABS: HEP B SURFACE ABDY Non Reactive (.); HEP B SURFACE AG Negative (Negative)
[2017-09-03 11:56] LABS: POC GLUCOSE 128 mg/dL (70-99)
[2017-09-03] MEDS: VANCOMYCIN PER PHARMACY MC (12:36)
[2017-09-03] MEDS: PIPERACILLIN/TAZOBACTAM 2.25 GM in IV NORMAL SALINE 50ML 50 ML IV ×2 (15:45→21:03)
[2017-09-03 18:13] LABS: POC GLUCOSE 127 mg/dL (70-99)
[2017-09-03] MEDS: DARBEPOETIN ALFA 60 MCG/0.3 ML DISP.SYRIN. SQ (21:03)
[2017-09-03] MEDS: CETIRIZINE HCL 10 MG TABLET. PO (21:03)
[2017-09-03 21:14] LABS: POC GLUCOSE 195 mg/dL (70-99)
[2017-09-04] MEDS: VANCOMYCIN RANDOM LEVEL. MC (05:00)
[2017-09-04] MEDS: ALTEPLASE 2 MG VIAL INT CAT (05:19)
[2017-09-04] MEDS: PIPERACILLIN/TAZOBACTAM 2.25 GM in IV NORMAL SALINE 50ML 50 ML IV ×3 (05:50→21:16)
[2017-09-04] MEDS: LEVOTHYROXINE 100 MCG TABLET PO (06:45)
[2017-09-04] MEDS: INSULIN ASPART 300 UNITS/3 ML INSULN.PEN SQ ×3 (07:30→16:30)
[2017-09-04] MEDS: SEVELAMER CARBONATE 800 MG TABLET. PO ×3 (08:00→17:00)
[2017-09-04] MEDS: ASPIRIN ENTERIC COATED 81 MG TABLET.DR. PO (08:00)
[2017-09-04 08:11] LABS: ANION GAP 9 (6-14); BLOOD UREA NITROGEN 80 mg/dL (7-20); CALCIUM 7.3 mg/dL (8.5-10.1); CARBON DIOXIDE 28 mmol/L (21-32); CHLORIDE 101 mmol/L (98-107); CREATININE 8.4 mg/dL (0.6-1.0); GFR 5.6; GLUCOSE 113 mg/dL (70-99); POTASSIUM 4.8 mmol/L (3.5-5.1); SODIUM 138 mmol/L (136-145)
[2017-09-04] MEDS: LACTOBACILLUS RHAMNOSUS GG 1 CAPSULE. PO ×2 (09:00→21:15)
[2017-09-04] MEDS: HEPARIN PF for SUB-Q USE 5,000 UNIT/0.5 ML VIAL. SQ ×2 (09:00→20:55)
[2017-09-04] MEDS: FOLIC/VIT B COMP W-C (RENAL) TABLET. PO (09:00)
[2017-09-04] MEDS: CITALOPRAM 10 MG TABLET. PO (09:00)
[2017-09-04] MEDS: OSELTAMIVIR 30 MG CAPSULE PO (09:00)
[2017-09-04] MEDS: IPRATRPIUM/ALBUTEROL 0.5/2.5MG 3 ML NEBU. NEB ×4 (09:01→20:00)
[2017-09-04] MEDS ORDERED: IODIXANOL 320 MG/ML 100 ML VIAL. (09:25)
[2017-09-04] MEDS ORDERED: IODIXANOL 320MG/ML 50ML VIAL. ×2 (09:26→13:03)
[2017-09-04] MEDS ORDERED: LIDOCAINE WITH 8.4% SOD BICARB 3 ML DISP.SYRIN. (09:26)
[2017-09-04] MEDS ORDERED: MIDAZOLAM HCL/PF 2 MG/2 ML VIAL. (09:57)
[2017-09-04] MEDS ORDERED: fentaNYL PF VIAL 100 MCG/2 ML VIAL ×2 (09:57→12:14)
[2017-09-04] MEDS: LIDOCAINE WITH 8.4% SOD BICARB 3 ML DISP.SYRIN. IJ (10:00)
[2017-09-04] MEDS: fentaNYL PF VIAL 100 MCG/2 ML VIAL IV ×3 (10:00→19:06)
[2017-09-04] MEDS: MIDAZOLAM HCL/PF 2 MG/2 ML VIAL. IV (10:00)
[2017-09-04] MEDS: IODIXANOL 320 MG/ML 100 ML VIAL. IART ×2 (10:30→13:30)
[2017-09-04] MEDS: ALTEPLASE 2MG VIAL 10 MG in IV NORMAL SALINE 100ML 100 ML IV (10:30)
[2017-09-04] MEDS ORDERED: CONTRAST GIVEN MC (10:30)
[2017-09-04] MEDS ORDERED: HEPARIN for IV BOLUS 10,000 UNIT/10 ML VIAL. (11:24)
[2017-09-04] MEDS: HEPARIN for IV BOLUS 10,000 UNIT/10 ML VIAL. IV (11:30)
[2017-09-04] MEDS: NYSTATIN 100,000 UNIT/GM TOPICAL CREAM 15GM TUBE. TP ×2 (15:00→21:16)
[2017-09-04] MEDS: ONDANSETRON PF 4 MG/2 ML VIAL. IV (19:06)
[2017-09-04 19:19] LABS: POC GLUCOSE 101 mg/dL (70-99)
[2017-09-04] MEDS: CETIRIZINE HCL 10 MG TABLET. PO (21:16)
[2017-09-04] MEDS ORDERED: DIALYSIS PATIENT. MC ×2 (21:45)
[2017-09-05] MEDS: PIPERACILLIN/TAZOBACTAM 2.25 GM in IV NORMAL SALINE 50ML 50 ML IV (05:52)
[2017-09-05 06:28] LABS: ADD MAN DIFF? NO
[2017-09-05 06:57] LABS: BASO % 0 % (0-3); EOS # 0.2 x10^3/uL (0.0-0.7); EOS % 4 % (0-3); HEMATOCRIT 23.6 % (36.0-47.0); HEMOGLOBIN 7.7 g/dL (12.0-15.5); LYMPH # 0.9 x10^3/uL (1.0-4.8); LYMPH % 16 % (24-48); MEAN CORPUSCULAR HEMOGLOBIN 28 pg (25-35); MEAN CORPUSCULAR HGB CONC 33 g/dL (31-37); MEAN CORPUSCULAR VOLUME 86 fL (79-100); MONO # 0.4 x10^3/uL (0.0-1.1); MONO % 7 % (0-9); NEUT # 4.3 x10^3uL (1.8-7.7); NEUT % 73 % (31-73); PLATELET COUNT 129 x10^3/uL (140-400); RED BLOOD COUNT 2.74 x10^6/uL (3.50-5.40); RED CELL DISTRIBUTION WIDTH 14.3 % (11.5-14.5); WHITE BLOOD COUNT 5.9 x10^3/uL (4.0-11.0)
[2017-09-05 07:11] LABS: ALBUMIN 2.3 g/dL (3.4-5.0); ALBUMIN/GLOBULIN RATIO 0.6 (1.0-1.7); ALK PHOS 56 U/L (46-116); ALT (SGPT) 18 U/L (14-59); ANION GAP 2 (6-14); AST (SGOT) 19 U/L (15-37); BLOOD UREA NITROGEN 33 mg/dL (7-20); BUN/CREATININE RATIO 8 (6-20); CALCIUM 7.3 mg/dL (8.5-10.1); CARBON DIOXIDE 35 mmol/L (21-32); CHLORIDE 102 mmol/L (98-107); GFR 13.2; GLUCOSE 147 mg/dL (70-99); POTASSIUM 4.5 mmol/L (3.5-5.1); SODIUM 139 mmol/L (136-145); TOTAL BILIRUBIN 0.4 mg/dL (0.2-1.0); TOTAL PROTEIN 6.1 g/dL (6.4-8.2)
[2017-09-05] MEDS: INSULIN ASPART 300 UNITS/3 ML INSULN.PEN SQ ×3 (07:24→16:30)
[2017-09-05] MEDS: LEVOTHYROXINE 100 MCG TABLET PO (07:35)
[2017-09-05] MEDS: ASPIRIN ENTERIC COATED 81 MG TABLET.DR. PO (07:35)
[2017-09-05] MEDS: SEVELAMER CARBONATE 800 MG TABLET. PO ×3 (07:35→17:51)
[2017-09-05] MEDS: IPRATRPIUM/ALBUTEROL 0.5/2.5MG 3 ML NEBU. NEB ×4 (08:32→19:54)
[2017-09-05] MEDS: OSELTAMIVIR 30 MG CAPSULE PO (08:53)
[2017-09-05] MEDS: CITALOPRAM 10 MG TABLET. PO (08:53)
[2017-09-05] MEDS: LACTOBACILLUS RHAMNOSUS GG 1 CAPSULE. PO ×2 (08:53→20:10)
[2017-09-05] MEDS: FOLIC/VIT B COMP W-C (RENAL) TABLET. PO (08:53)
[2017-09-05] MEDS: HEPARIN PF for SUB-Q USE 5,000 UNIT/0.5 ML VIAL. SQ ×2 (08:56→20:13)
[2017-09-05] MEDS: NYSTATIN 100,000 UNIT/GM TOPICAL CREAM 15GM TUBE. TP ×2 (08:56→20:14)
[2017-09-05] MEDS: CEFPODOXIME PROXETIL 100 MG TABLET. PO ×2 (11:56→20:10)
[2017-09-05 12:08] LABS: POC GLUCOSE 190 mg/dL (70-99)
[2017-09-05 14:45] LABS: ISTAT ACT 188 sec (92-181)
[2017-09-05 17:14] LABS: POC GLUCOSE 127 mg/dL (70-99)
[2017-09-05] MEDS: CETIRIZINE HCL 10 MG TABLET. PO (20:11)
[2017-09-05 21:14] LABS: POC GLUCOSE 196 mg/dL (70-99)
[2017-09-06] MEDS: LEVOTHYROXINE 100 MCG TABLET PO (05:51)
[2017-09-06 05:53] LABS: ADD MAN DIFF? NO
[2017-09-06 06:08] LABS: BASO % 1 % (0-3); EOS # 0.2 x10^3/uL (0.0-0.7); EOS % 4 % (0-3); HEMATOCRIT 22.7 % (36.0-47.0); HEMOGLOBIN 7.6 g/dL (12.0-15.5); LYMPH # 1.2 x10^3/uL (1.0-4.8); LYMPH % 23 % (24-48); MEAN CORPUSCULAR HEMOGLOBIN 28 pg (25-35); MEAN CORPUSCULAR HGB CONC 33 g/dL (31-37); MEAN CORPUSCULAR VOLUME 85 fL (79-100); MONO # 0.5 x10^3/uL (0.0-1.1); MONO % 9 % (0-9); NEUT # 3.4 x10^3uL (1.8-7.7); NEUT % 63 % (31-73); PLATELET COUNT 137 x10^3/uL (140-400); RED BLOOD COUNT 2.69 x10^6/uL (3.50-5.40); RED CELL DISTRIBUTION WIDTH 14.5 % (11.5-14.5); WHITE BLOOD COUNT 5.4 x10^3/uL (4.0-11.0)
[2017-09-06 06:29] LABS: ALBUMIN 2.5 g/dL (3.4-5.0); ALBUMIN/GLOBULIN RATIO 0.6 (1.0-1.7); ALK PHOS 62 U/L (46-116); ALT (SGPT) 15 U/L (14-59); ANION GAP 8 (6-14); AST (SGOT) 14 U/L (15-37); BUN/CREATININE RATIO 9 (6-20); CALCIUM 7.7 mg/dL (8.5-10.1); CARBON DIOXIDE 30 mmol/L (21-32); CHLORIDE 99 mmol/L (98-107); CREATININE 5.5 mg/dL (0.6-1.0); GFR 9.1; GLUCOSE 130 mg/dL (70-99); POTASSIUM 4.2 mmol/L (3.5-5.1); SODIUM 137 mmol/L (136-145); TOTAL BILIRUBIN 0.6 mg/dL (0.2-1.0); TOTAL PROTEIN 6.4 g/dL (6.4-8.2)
[2017-09-06 06:32] LABS: BLOOD UREA NITROGEN 50 mg/dL (7-20)
[2017-09-06] MEDS: IPRATRPIUM/ALBUTEROL 0.5/2.5MG 3 ML NEBU. NEB ×3 (07:10→15:59)
[2017-09-06] MEDS: INSULIN ASPART 300 UNITS/3 ML INSULN.PEN SQ ×3 (07:30→17:14)
[2017-09-06 07:58] LABS: POC GLUCOSE 131 mg/dL (70-99)
[2017-09-06] MEDS: NYSTATIN 100,000 UNIT/GM TOPICAL CREAM 15GM TUBE. TP (09:00)
[2017-09-06] MEDS: CITALOPRAM 10 MG TABLET. PO (10:04)
[2017-09-06] MEDS: ASPIRIN ENTERIC COATED 81 MG TABLET.DR. PO (10:04)
[2017-09-06] MEDS: OSELTAMIVIR 30 MG CAPSULE PO (10:04)
[2017-09-06] MEDS: FOLIC/VIT B COMP W-C (RENAL) TABLET. PO (10:04)
[2017-09-06] MEDS: CEFPODOXIME PROXETIL 100 MG TABLET. PO (10:04)
[2017-09-06] MEDS: LACTOBACILLUS RHAMNOSUS GG 1 CAPSULE. PO (10:04)
[2017-09-06] MEDS: SEVELAMER CARBONATE 800 MG TABLET. PO ×3 (10:05→17:07)
[2017-09-06] MEDS: HEPARIN PF for SUB-Q USE 5,000 UNIT/0.5 ML VIAL. SQ (10:14)
[2017-09-06] MEDS ORDERED: IV NORMAL SALINE 1000ML BAG 1,000 ML IV ×2 (11:03)
[2017-09-06] MEDS ORDERED: DIALYSIS PATIENT. MC (11:15)
[2017-09-06 11:27] LABS: POC GLUCOSE 204 mg/dL (70-99)
[2017-09-06 16:52] LABS: POC GLUCOSE 203 mg/dL (70-99)
== END 2017-09-06 18:00 | DRG 853 ==
LOC: 5 SOUTH 09-05 14:47 → ER 05:08 → 5 NORTH 05:28 → 1 WEST ICU 09:46
PROVIDERS: Internal Medicine
PROC: 02H633Z Insertion of Infusion Device into Right Atrium, Percutaneous Approach (ICD-10-PCS; 2017-09-02)
PROC: B244ZZZ Ultrasonography of Right Heart (ICD-10-PCS; 2017-09-02)
PROC: 5A1D70Z Performance of Urinary Filtration, Intermittent, Less than 6 Hours Per Day (ICD-10-PCS; 2017-09-02)
PROC: 03CY3ZZ Extirpation of Matter from Upper Artery, Percutaneous Approach (ICD-10-PCS; principal; 2017-09-04)
PROC: 057D3ZZ Dilation of Right Cephalic Vein, Percutaneous Approach (ICD-10-PCS; 2017-09-04)
PROC: 05753ZZ Dilation of Right Subclavian Vein, Percutaneous Approach (ICD-10-PCS; 2017-09-04)
PROC: B51W1ZZ Fluoroscopy of Dialysis Shunt/Fistula using Low Osmolar Contrast (ICD-10-PCS; 2017-09-04)
PROC: 3E05317 Introduction of Other Thrombolytic into Peripheral Artery, Percutaneous Approach (ICD-10-PCS; 2017-09-04)
PROC: 5A1D70Z Performance of Urinary Filtration, Intermittent, Less than 6 Hours Per Day (ICD-10-PCS; 2017-09-04)
PROC: 5A1D70Z Performance of Urinary Filtration, Intermittent, Less than 6 Hours Per Day (ICD-10-PCS; 2017-09-06)
DX: A41.9 Sepsis, unspecified organism (principal); E43 Unspecified severe protein-calorie malnutrition; J96.01 Acute respiratory failure with hypoxia; R65.21 Severe sepsis with septic shock; G92 Toxic encephalopathy; D69.59 Other secondary thrombocytopenia; I13.2 Hypertensive heart and chronic kidney disease with heart failure and with stage 5 chronic kidney disease, or end stage renal disease; E11.22 Type 2 diabetes mellitus with diabetic chronic kidney disease; D69.6 Thrombocytopenia, unspecified; I50.33 Acute on chronic diastolic (congestive) heart failure; N18.6 End stage renal disease; E87.2 Acidosis; N25.81 Secondary hyperparathyroidism of renal origin; N39.0 Urinary tract infection, site not specified; T82.868A Thrombosis due to vascular prosthetic devices, implants and grafts, initial encounter; T82.858A Stenosis of other vascular prosthetic devices, implants and grafts, initial encounter; D63.1 Anemia in chronic kidney disease; D50.9 Iron deficiency anemia, unspecified; E11.40 Type 2 diabetes mellitus with diabetic neuropathy, unspecified; E03.9 Hypothyroidism, unspecified; E78.5 Hyperlipidemia, unspecified; F32.9 Major depressive disorder, single episode, unspecified; F41.9 Anxiety disorder, unspecified; G25.0 Essential tremor; I69.341 Monoplegia of lower limb following cerebral infarction affecting right dominant side; J20.9 Acute bronchitis, unspecified; K21.9 Gastro-esophageal reflux disease without esophagitis; M06.9 Rheumatoid arthritis, unspecified; E66.9 Obesity, unspecified; M19.90 Unspecified osteoarthritis, unspecified site; Y83.2 Surgical operation with anastomosis, bypass or graft as the cause of abnormal reaction of the patient, or of later complication, without mention of misadventure at the time of the procedure; Z99.2 Dependence on renal dialysis; Z91.19 Patient's noncompliance with other medical treatment and regimen; Z90.49 Acquired absence of other specified parts of digestive tract; Z87.891 Personal history of nicotine dependence; Z86.711 Personal history of pulmonary embolism; Z83.3 Family history of diabetes mellitus; Z82.49 Family history of ischemic heart disease and other diseases of the circulatory system; Z80.3 Family history of malignant neoplasm of breast; Z79.4 Long term (current) use of insulin; Z68.39 Body mass index [BMI] 39.0-39.9, adult; Z98.51 Tubal ligation status; Z88.5 Allergy status to narcotic agent; Y92.89 Other specified places as the place of occurrence of the external cause
CPT/HCPCS: 36415; 36556; 36600; 36905; 70450; 71045; 76937; 80048; 80053; 80202; 81001; 82805; 82962; 83605; 83690; 83735; 83880; 84484; 85007; 85025; 85347; 85610; 85730; 86706; 86850; 86900; 86901; 87040; 87086; 87186; 87340; 87641; 87804; 87804-59; 93005; 94640; 94760; 96365; 96367; 96375; 97162-GP; 97166-GO; 97530-GP; 99152; 99153; 99291; 99291-25; A4215; C1757; C1758; C1769; C1892; C1894; J0881; J1644; J1815; J1956; J2250; J2405; J2543; J2997; J3010; J3370; J7040; J7620; P9046

== ENCOUNTER 2017-10-31 18:13 | Inpatient (IN) | payer MEDICARE, OTHER ==
[2017-10-31] MEDS ORDERED: CONTRAST GIVEN MC (19:15)
[2017-10-31 19:27] LABS: ADD MAN DIFF? NO
[2017-10-31] MEDS: IV NORMAL SALINE 1000ML BAG 1,000 ML IV ×2 (19:28→19:38)
[2017-10-31] MEDS: IOHEXOL 300 MG/ML 100ML VIAL. IV (19:29)
[2017-10-31 19:30] LABS: BASO % 1 % (0-3); EOS # 0.2 x10^3/uL (0.0-0.7); EOS % 4 % (0-3); HEMATOCRIT 30.2 % (36.0-47.0); LYMPH # 1.3 x10^3/uL (1.0-4.8); LYMPH % 30 % (24-48); MEAN CORPUSCULAR HEMOGLOBIN 28 pg (25-35); MEAN CORPUSCULAR HGB CONC 33 g/dL (31-37); MEAN CORPUSCULAR VOLUME 86 fL (79-100); MONO # 0.5 x10^3/uL (0.0-1.1); MONO % 12 % (0-9); NEUT # 2.4 x10^3uL (1.8-7.7); NEUT % 54 % (31-73); PLATELET COUNT 192 x10^3/uL (140-400); RED BLOOD COUNT 3.53 x10^6/uL (3.50-5.40); RED CELL DISTRIBUTION WIDTH 13.9 % (11.5-14.5); WHITE BLOOD COUNT 4.4 x10^3/uL (4.0-11.0)
[2017-10-31 20:21] LABS: ANION GAP 5 (6-14); BLOOD UREA NITROGEN 20 mg/dL (7-20); BUN/CREATININE RATIO 4 (6-20); CALCIUM 7.9 mg/dL (8.5-10.1); CARBON DIOXIDE 32 mmol/L (21-32); CHLORIDE 99 mmol/L (98-107); CREATININE 5.4 mg/dL (0.6-1.0); GFR 9.3; GLUCOSE 196 mg/dL (70-99); POTASSIUM 3.9 mmol/L (3.5-5.1); SODIUM 136 mmol/L (136-145)
[2017-10-31 20:27] LABS: LACTIC ACID 0.9 mmol/L (0.4-2.0); TROPONINI 0.021 ng/mL (0.000-0.055)
[2017-10-31 20:35] LABS: ALBUMIN 3.2 g/dL (3.4-5.0); ALBUMIN/GLOBULIN RATIO 0.7 (1.0-1.7); ALK PHOS 72 U/L (46-116); ALT (SGPT) 19 U/L (14-59); AST (SGOT) 17 U/L (15-37); LIPASE 397 U/L (73-393); TOTAL BILIRUBIN 0.4 mg/dL (0.2-1.0); TOTAL PROTEIN 7.7 g/dL (6.4-8.2)
[2017-10-31 20:43] LABS: BILIRUBIN,URINE MODERATE (NEG); CLARITY,URINE TURBID; COLOR,URINE RED; GLUCOSE,URINE NEGATIVE (NEG); NITRITE,URINE POSITIVE (NEG); PROTEIN,URINE >=300 mg/dL (NEG-TRACE)
[2017-10-31 20:47] LABS: BACTERIA,URINE MANY /HPF (0-FEW); RBC,URINE 20-40 /HPF (0-2); WBC,URINE TNTC /HPF (0-4)
[2017-10-31 20:48] LABS: HYALINE CASTS, URINE FEW /HPF; SQUAMOUS EPITHELIAL CELL,UR FEW /LPF
[2017-10-31] MEDS ORDERED: PIP/TAZO PER PHARMACY MC (22:00)
[2017-10-31] MEDS: PIPERACILLIN/TAZOBACTAM 2.25 GM in IV NORMAL SALINE 50ML 50 ML IV (22:12)
[2017-10-31] MEDS: VANCOMYCIN 2 GM in IV 1/2 NORMAL SALINE 500 ML IV (22:48)
[2017-10-31] MEDS ORDERED: fentaNYL PF VIAL 100 MCG/2 ML VIAL IV (23:00)
[2017-10-31] MEDS ORDERED: ONDANSETRON PF 4 MG/2 ML VIAL. IV (23:00)
[2017-10-31] MEDS ORDERED: DEXTROSE 50% 25 GM / 50ML DISP.SYRIN. IV (23:45)
[2017-11-01 00:33] LABS: POC GLUCOSE 140 mg/dL (70-99)
[2017-11-01] MEDS: VANCOMYCIN PER PHARMACY MC ×3 (02:14→14:00)
[2017-11-01 03:21] LABS: ADD MAN DIFF? NO
[2017-11-01 03:56] LABS: ANION GAP 7 (6-14); BLOOD UREA NITROGEN 20 mg/dL (7-20); CALCIUM 7.5 mg/dL (8.5-10.1); CARBON DIOXIDE 28 mmol/L (21-32); CHLORIDE 100 mmol/L (98-107); CREATININE 5.7 mg/dL (0.6-1.0); GFR 8.8; GLUCOSE 149 mg/dL (70-99); POTASSIUM 3.8 mmol/L (3.5-5.1); SODIUM 135 mmol/L (136-145)
[2017-11-01 04:03] LABS: LACTIC ACID 0.6 mmol/L (0.4-2.0)
[2017-11-01 04:06] LABS: BASO % 1 % (0-3); EOS # 0.2 x10^3/uL (0.0-0.7); EOS % 5 % (0-3); HEMATOCRIT 27.9 % (36.0-47.0); HEMOGLOBIN 9.4 g/dL (12.0-15.5); LYMPH # 1.5 x10^3/uL (1.0-4.8); LYMPH % 34 % (24-48); MEAN CORPUSCULAR HEMOGLOBIN 29 pg (25-35); MEAN CORPUSCULAR HGB CONC 34 g/dL (31-37); MEAN CORPUSCULAR VOLUME 86 fL (79-100); MONO # 0.6 x10^3/uL (0.0-1.1); MONO % 13 % (0-9); NEUT # 2.1 x10^3uL (1.8-7.7); NEUT % 47 % (31-73); PLATELET COUNT 191 x10^3/uL (140-400); RED BLOOD COUNT 3.24 x10^6/uL (3.50-5.40); RED CELL DISTRIBUTION WIDTH 13.7 % (11.5-14.5); WHITE BLOOD COUNT 4.5 x10^3/uL (4.0-11.0)
[2017-11-01] MEDS: PIPERACILLIN/TAZOBACTAM 2.25 GM in IV NORMAL SALINE 50ML 50 ML IV ×3 (05:52→22:12)
[2017-11-01] MEDS: ACETAMINOPHEN 325 MG TABLET. PO (06:14)
[2017-11-01 07:47] LABS: POC GLUCOSE 134 mg/dL (70-99)
[2017-11-01] MEDS: INSULIN ASPART 300 UNITS/3 ML INSULN.PEN SQ ×4 (08:00→15:16)
[2017-11-01] MEDS: LACTOBACILLUS RHAMNOSUS GG 1 CAPSULE. PO ×3 (08:23→22:09)
[2017-11-01] MEDS ORDERED: DEXTROSE 50% 25 GM / 50ML DISP.SYRIN. IV (08:45)
[2017-11-01] MEDS: CITALOPRAM 10 MG TABLET. PO (09:00)
[2017-11-01] MEDS: FOLIC/VIT B COMP W-C (RENAL) TABLET. PO (09:00)
[2017-11-01] MEDS: NYSTATIN 100,000 UNIT/GM TOPICAL CREAM 15GM TUBE. TP (09:00)
[2017-11-01] MEDS: amLODIPine BESYLATE 10 MG TABLET PO (09:00)
[2017-11-01] MEDS: ASPIRIN ENTERIC COATED 81 MG TABLET.DR. PO (09:00)
[2017-11-01] MEDS: ISOSORBIDE MONONITRATE ER 30 MG TAB.ER.24H PO (09:00)
[2017-11-01] MEDS: LEVOTHYROXINE 100 MCG TABLET PO (09:07)
[2017-11-01] MEDS: HEPARIN PF for SUB-Q USE 5,000 UNIT/0.5 ML VIAL. SQ ×2 (09:26→22:23)
[2017-11-01] MEDS: SEVELAMER CARBONATE 800 MG TABLET. PO ×2 (12:00→15:15)
[2017-11-01] MEDS: IPRATRPIUM/ALBUTEROL 0.5/2.5MG 3 ML NEBU. NEB ×3 (12:00→19:44)
[2017-11-01 13:03] LABS: POC GLUCOSE 282 mg/dL (70-99)
[2017-11-01] MEDS ORDERED: IV NORMAL SALINE 1000ML BAG 1,000 ML IV ×2 (14:57)
[2017-11-01] MEDS ORDERED: LABETALOL 20 MG/4 ML DISP.SYRIN. IVP (15:00)
[2017-11-01] MEDS ORDERED: cloNIDine HCL 0.1 MG TABLET PO (15:00)
[2017-11-01] MEDS ORDERED: DIALYSIS PATIENT. MC (15:00)
[2017-11-01] MEDS ORDERED: diphenhydrAMINE 50 MG/ML VIAL IV (15:00)
[2017-11-01] MEDS ORDERED: ALBUMIN HUMAN 25% 200 ML IV (15:00)
[2017-11-01] MEDS ORDERED: ACETAMINOPHEN 500 MG TABLET PO (15:00)
[2017-11-01 16:45] LABS: POC GLUCOSE 128 mg/dL (70-99)
[2017-11-01] MEDS: diphenhydrAMINE 50 MG/ML VIAL IV (20:17)
[2017-11-01] MEDS ORDERED: DARBEPOETIN ALFA 60 MCG/0.3 ML DISP.SYRIN. SQ (21:00)
[2017-11-01] MEDS: NYSTATIN TOPICAL POWDER 15GM BOTTLE. TP (21:00)
[2017-11-01] MEDS ORDERED: cefTRIAXone IV Push 1 GM VIAL. IVP (22:00)
[2017-11-01] MEDS: CETIRIZINE HCL 10 MG TABLET. PO (22:09)
[2017-11-01] MEDS: DARBEPOETIN ALFA 60 MCG/0.3 ML DISP.SYRIN. SQ (22:11)
[2017-11-01 22:28] LABS: POC GLUCOSE 108 mg/dL (70-99)
[2017-11-02] MEDS: ACETAMINOPHEN 325 MG TABLET. PO ×3 (02:57→22:23)
[2017-11-02] MEDS: VANCOMYCIN RANDOM LEVEL. MC (05:00)
[2017-11-02] MEDS: LEVOTHYROXINE 100 MCG TABLET PO (06:16)
[2017-11-02] MEDS: PIPERACILLIN/TAZOBACTAM 2.25 GM in IV NORMAL SALINE 50ML 50 ML IV ×3 (06:16→22:34)
[2017-11-02] MEDS: IPRATRPIUM/ALBUTEROL 0.5/2.5MG 3 ML NEBU. NEB ×4 (07:39→20:25)
[2017-11-02 07:56] LABS: POC GLUCOSE 118 mg/dL (70-99)
[2017-11-02] MEDS: INSULIN ASPART 300 UNITS/3 ML INSULN.PEN SQ ×3 (08:00→17:00)
[2017-11-02] MEDS: SEVELAMER CARBONATE 800 MG TABLET. PO ×3 (08:18→17:37)
[2017-11-02] MEDS: ASPIRIN ENTERIC COATED 81 MG TABLET.DR. PO (08:20)
[2017-11-02] MEDS: FOLIC/VIT B COMP W-C (RENAL) TABLET. PO (08:20)
[2017-11-02] MEDS: CITALOPRAM 10 MG TABLET. PO (08:22)
[2017-11-02] MEDS: NYSTATIN TOPICAL POWDER 15GM BOTTLE. TP ×2 (08:23→22:34)
[2017-11-02] MEDS: ISOSORBIDE MONONITRATE ER 30 MG TAB.ER.24H PO (08:23)
[2017-11-02] MEDS: LACTOBACILLUS RHAMNOSUS GG 1 CAPSULE. PO ×2 (08:23→22:23)
[2017-11-02] MEDS: amLODIPine BESYLATE 10 MG TABLET PO (08:24)
[2017-11-02] MEDS: HEPARIN PF for SUB-Q USE 5,000 UNIT/0.5 ML VIAL. SQ ×2 (08:36→22:33)
[2017-11-02 10:56] LABS: POC GLUCOSE 273 mg/dL (70-99)
[2017-11-02] MEDS: VANCOMYCIN PER PHARMACY MC (13:28)
[2017-11-02 16:24] LABS: POC GLUCOSE 120 mg/dL (70-99)
[2017-11-02 20:44] LABS: POC GLUCOSE 183 mg/dL (70-99)
[2017-11-02] MEDS: CETIRIZINE HCL 10 MG TABLET. PO (22:23)
[2017-11-03] MEDS: PIPERACILLIN/TAZOBACTAM 2.25 GM in IV NORMAL SALINE 50ML 50 ML IV (06:43)
[2017-11-03] MEDS: IPRATRPIUM/ALBUTEROL 0.5/2.5MG 3 ML NEBU. NEB ×4 (07:46→19:33)
[2017-11-03] MEDS: INSULIN ASPART 300 UNITS/3 ML INSULN.PEN SQ ×3 (08:00→17:33)
[2017-11-03 08:28] LABS: POC GLUCOSE 130 mg/dL (70-99)
[2017-11-03] MEDS: SEVELAMER CARBONATE 800 MG TABLET. PO ×3 (10:59→17:31)
[2017-11-03] MEDS: FOLIC/VIT B COMP W-C (RENAL) TABLET. PO (10:59)
[2017-11-03] MEDS: LACTOBACILLUS RHAMNOSUS GG 1 CAPSULE. PO ×2 (10:59→21:44)
[2017-11-03] MEDS: CITALOPRAM 10 MG TABLET. PO (11:00)
[2017-11-03] MEDS: ASPIRIN ENTERIC COATED 81 MG TABLET.DR. PO (11:00)
[2017-11-03] MEDS: ISOSORBIDE MONONITRATE ER 30 MG TAB.ER.24H PO (11:00)
[2017-11-03] MEDS: LEVOTHYROXINE 100 MCG TABLET PO (11:00)
[2017-11-03] MEDS: amLODIPine BESYLATE 10 MG TABLET PO (11:00)
[2017-11-03] MEDS: HEPARIN PF for SUB-Q USE 5,000 UNIT/0.5 ML VIAL. SQ ×2 (11:01→21:52)
[2017-11-03 11:22] LABS: POC GLUCOSE 238 mg/dL (70-99)
[2017-11-03] MEDS: NYSTATIN TOPICAL POWDER 15GM BOTTLE. TP ×2 (13:47→21:44)
[2017-11-03] MEDS: cefTRIAXone IV Push 1 GM VIAL. IVP (16:18)
[2017-11-03] MEDS: ACETAMINOPHEN 325 MG TABLET. PO (16:18)
[2017-11-03 17:07] LABS: POC GLUCOSE 179 mg/dL (70-99)
[2017-11-03 20:48] LABS: POC GLUCOSE 157 mg/dL (70-99)
[2017-11-03] MEDS: CETIRIZINE HCL 10 MG TABLET. PO (21:44)
[2017-11-03] MEDS: diphenhydrAMINE HCL 25 MG CAPSULE PO (21:45)
[2017-11-04 05:31] LABS: ADD MAN DIFF? NO
[2017-11-04 05:42] LABS: BASO % 1 % (0-3); EOS # 0.3 x10^3/uL (0.0-0.7); EOS % 6 % (0-3); HEMATOCRIT 30.4 % (36.0-47.0); HEMOGLOBIN 9.8 g/dL (12.0-15.5); LYMPH # 1.1 x10^3/uL (1.0-4.8); LYMPH % 25 % (24-48); MEAN CORPUSCULAR HEMOGLOBIN 28 pg (25-35); MEAN CORPUSCULAR HGB CONC 32 g/dL (31-37); MEAN CORPUSCULAR VOLUME 86 fL (79-100); MONO # 0.4 x10^3/uL (0.0-1.1); MONO % 10 % (0-9); NEUT # 2.5 x10^3uL (1.8-7.7); NEUT % 58 % (31-73); PLATELET COUNT 190 x10^3/uL (140-400); RED BLOOD COUNT 3.54 x10^6/uL (3.50-5.40); RED CELL DISTRIBUTION WIDTH 14.1 % (11.5-14.5); WHITE BLOOD COUNT 4.3 x10^3/uL (4.0-11.0)
[2017-11-04 06:07] LABS: ANION GAP 12 (6-14); BLOOD UREA NITROGEN 37 mg/dL (7-20); CALCIUM 8.2 mg/dL (8.5-10.1); CARBON DIOXIDE 27 mmol/L (21-32); CHLORIDE 95 mmol/L (98-107); CREATININE 7.8 mg/dL (0.6-1.0); GFR 6.1; GLUCOSE 152 mg/dL (70-99); POTASSIUM 3.6 mmol/L (3.5-5.1); SODIUM 134 mmol/L (136-145)
[2017-11-04] MEDS: LEVOTHYROXINE 100 MCG TABLET PO (07:00)
[2017-11-04 07:55] LABS: POC GLUCOSE 142 mg/dL (70-99)
[2017-11-04] MEDS: INSULIN ASPART 300 UNITS/3 ML INSULN.PEN SQ ×3 (08:00→17:00)
[2017-11-04] MEDS: IPRATRPIUM/ALBUTEROL 0.5/2.5MG 3 ML NEBU. NEB ×4 (08:53→19:29)
[2017-11-04] MEDS: LACTOBACILLUS RHAMNOSUS GG 1 CAPSULE. PO ×2 (09:22→22:29)
[2017-11-04] MEDS: CITALOPRAM 10 MG TABLET. PO (09:22)
[2017-11-04] MEDS: FOLIC/VIT B COMP W-C (RENAL) TABLET. PO (09:22)
[2017-11-04] MEDS: ISOSORBIDE MONONITRATE ER 30 MG TAB.ER.24H PO (09:22)
[2017-11-04] MEDS: SEVELAMER CARBONATE 800 MG TABLET. PO ×3 (09:22→22:29)
[2017-11-04] MEDS: amLODIPine BESYLATE 10 MG TABLET PO (09:22)
[2017-11-04] MEDS: ASPIRIN ENTERIC COATED 81 MG TABLET.DR. PO (09:22)
[2017-11-04] MEDS: NYSTATIN TOPICAL POWDER 15GM BOTTLE. TP ×2 (09:23→22:29)
[2017-11-04] MEDS: HEPARIN PF for SUB-Q USE 5,000 UNIT/0.5 ML VIAL. SQ ×2 (09:24→22:37)
[2017-11-04] MEDS ORDERED: IV NORMAL SALINE 1000ML BAG 1,000 ML IV ×2 (11:46)
[2017-11-04 11:48] LABS: POC GLUCOSE 175 mg/dL (70-99)
[2017-11-04] MEDS ORDERED: 0.9 % SODIUM CHLORIDE 10 ML DISP.SYRIN. IV ×2 (12:00)
[2017-11-04] MEDS ORDERED: DIALYSIS PATIENT. MC (12:00)
[2017-11-04] MEDS ORDERED: diphenhydrAMINE 50 MG/ML VIAL IV ×2 (12:00)
[2017-11-04 16:49] LABS: POC GLUCOSE 106 mg/dL (70-99)
[2017-11-04] MEDS: cefTRIAXone IV Push 1 GM VIAL. IVP (16:53)
[2017-11-04 21:32] LABS: POC GLUCOSE 141 mg/dL (70-99)
[2017-11-04] MEDS: CETIRIZINE HCL 10 MG TABLET. PO (22:29)
[2017-11-05] MEDS: ACETAMINOPHEN 325 MG TABLET. PO ×2 (04:24→20:53)
[2017-11-05 04:41] LABS: ADD MAN DIFF? NO
[2017-11-05 05:02] LABS: BASO # 0.1 x10^3/uL (0.0-0.2); BASO % 1 % (0-3); EOS # 0.2 x10^3/uL (0.0-0.7); EOS % 6 % (0-3); HEMATOCRIT 30.4 % (36.0-47.0); HEMOGLOBIN 10.2 g/dL (12.0-15.5); LYMPH # 1.2 x10^3/uL (1.0-4.8); LYMPH % 31 % (24-48); MEAN CORPUSCULAR HEMOGLOBIN 29 pg (25-35); MEAN CORPUSCULAR HGB CONC 33 g/dL (31-37); MEAN CORPUSCULAR VOLUME 86 fL (79-100); MONO # 0.4 x10^3/uL (0.0-1.1); MONO % 12 % (0-9); NEUT # 1.9 x10^3uL (1.8-7.7); NEUT % 50 % (31-73); PLATELET COUNT 225 x10^3/uL (140-400); RED BLOOD COUNT 3.54 x10^6/uL (3.50-5.40); RED CELL DISTRIBUTION WIDTH 14.4 % (11.5-14.5); WHITE BLOOD COUNT 3.8 x10^3/uL (4.0-11.0)
[2017-11-05 05:30] LABS: ANION GAP 10 (6-14); CALCIUM 8.3 mg/dL (8.5-10.1); CARBON DIOXIDE 30 mmol/L (21-32); CHLORIDE 99 mmol/L (98-107); CREATININE 4.4 mg/dL (0.6-1.0); GFR 11.8; GLUCOSE 128 mg/dL (70-99); SODIUM 139 mmol/L (136-145)
[2017-11-05 05:33] LABS: BLOOD UREA NITROGEN 13 mg/dL (7-20)
[2017-11-05] MEDS: LEVOTHYROXINE 100 MCG TABLET PO (07:59)
[2017-11-05] MEDS: INSULIN ASPART 300 UNITS/3 ML INSULN.PEN SQ ×3 (08:00→17:57)
[2017-11-05 08:06] LABS: POC GLUCOSE 131 mg/dL (70-99)
[2017-11-05] MEDS: IPRATRPIUM/ALBUTEROL 0.5/2.5MG 3 ML NEBU. NEB ×4 (08:14→20:11)
[2017-11-05] MEDS: CITALOPRAM 10 MG TABLET. PO (09:28)
[2017-11-05] MEDS: ISOSORBIDE MONONITRATE ER 30 MG TAB.ER.24H PO (09:28)
[2017-11-05] MEDS: ASPIRIN ENTERIC COATED 81 MG TABLET.DR. PO (09:28)
[2017-11-05] MEDS: LACTOBACILLUS RHAMNOSUS GG 1 CAPSULE. PO ×2 (09:28→20:53)
[2017-11-05] MEDS: SEVELAMER CARBONATE 800 MG TABLET. PO ×4 (09:28→17:00)
[2017-11-05] MEDS: NYSTATIN TOPICAL POWDER 15GM BOTTLE. TP ×2 (09:29→20:54)
[2017-11-05] MEDS: amLODIPine BESYLATE 10 MG TABLET PO (09:29)
[2017-11-05] MEDS: FOLIC/VIT B COMP W-C (RENAL) TABLET. PO (09:29)
[2017-11-05] MEDS: HEPARIN PF for SUB-Q USE 5,000 UNIT/0.5 ML VIAL. SQ ×2 (09:39→21:00)
[2017-11-05] MEDS ORDERED: PHENAZOPYRIDINE 200 MG TABLET. PO (11:15)
[2017-11-05 12:02] LABS: POC GLUCOSE 169 mg/dL (70-99)
[2017-11-05] MEDS ORDERED: ESTROGENS, CONJ VAGINAL CREAM 30GM TUBE. VG (16:00)
[2017-11-05] MEDS: cefTRIAXone IV Push 1 GM VIAL. IVP (16:06)
[2017-11-05 17:21] LABS: POC GLUCOSE 192 mg/dL (70-99)
[2017-11-05] MEDS: CETIRIZINE HCL 10 MG TABLET. PO (20:53)
[2017-11-05] MEDS: ESTROGENS, CONJ VAGINAL CREAM 30GM TUBE. VG (20:56)
[2017-11-05 21:09] LABS: POC GLUCOSE 180 mg/dL (70-99)
[2017-11-06] MEDS: IPRATRPIUM/ALBUTEROL 0.5/2.5MG 3 ML NEBU. NEB ×4 (07:44→19:53)
[2017-11-06] MEDS: INSULIN ASPART 300 UNITS/3 ML INSULN.PEN SQ ×3 (08:00→17:00)
[2017-11-06] MEDS: FOLIC/VIT B COMP W-C (RENAL) TABLET. PO (08:22)
[2017-11-06] MEDS: SEVELAMER CARBONATE 800 MG TABLET. PO ×3 (08:22→17:00)
[2017-11-06] MEDS: ASPIRIN ENTERIC COATED 81 MG TABLET.DR. PO (08:22)
[2017-11-06] MEDS: LEVOTHYROXINE 100 MCG TABLET PO (08:22)
[2017-11-06] MEDS: CITALOPRAM 10 MG TABLET. PO (08:23)
[2017-11-06] MEDS: NYSTATIN TOPICAL POWDER 15GM BOTTLE. TP ×2 (08:23→20:55)
[2017-11-06] MEDS: LACTOBACILLUS RHAMNOSUS GG 1 CAPSULE. PO ×2 (08:23→20:52)
[2017-11-06] MEDS: amLODIPine BESYLATE 10 MG TABLET PO (08:27)
[2017-11-06] MEDS: ISOSORBIDE MONONITRATE ER 30 MG TAB.ER.24H PO (08:28)
[2017-11-06] MEDS: HEPARIN PF for SUB-Q USE 5,000 UNIT/0.5 ML VIAL. SQ ×2 (08:33→20:54)
[2017-11-06 09:57] LABS: ADD MAN DIFF? NO
[2017-11-06 10:18] LABS: BASO # 0.1 x10^3/uL (0.0-0.2); BASO % 2 % (0-3); EOS # 0.3 x10^3/uL (0.0-0.7); EOS % 8 % (0-3); HEMATOCRIT 31.2 % (36.0-47.0); HEMOGLOBIN 10.3 g/dL (12.0-15.5); LYMPH # 1.4 x10^3/uL (1.0-4.8); LYMPH % 33 % (24-48); MEAN CORPUSCULAR HEMOGLOBIN 28 pg (25-35); MEAN CORPUSCULAR HGB CONC 33 g/dL (31-37); MEAN CORPUSCULAR VOLUME 86 fL (79-100); MONO # 0.5 x10^3/uL (0.0-1.1); MONO % 12 % (0-9); NEUT # 1.9 x10^3uL (1.8-7.7); NEUT % 46 % (31-73); PLATELET COUNT 268 x10^3/uL (140-400); RED BLOOD COUNT 3.61 x10^6/uL (3.50-5.40); RED CELL DISTRIBUTION WIDTH 14.1 % (11.5-14.5); WHITE BLOOD COUNT 4.1 x10^3/uL (4.0-11.0)
[2017-11-06 10:22] LABS: ANION GAP 11 (6-14); BLOOD UREA NITROGEN 28 mg/dL (7-20); CALCIUM 8.1 mg/dL (8.5-10.1); CARBON DIOXIDE 28 mmol/L (21-32); CHLORIDE 96 mmol/L (98-107); CREATININE 6.9 mg/dL (0.6-1.0); GLUCOSE 212 mg/dL (70-99); POTASSIUM 3.7 mmol/L (3.5-5.1); SODIUM 135 mmol/L (136-145)
[2017-11-06 11:19] LABS: POC GLUCOSE 219 mg/dL (70-99)
[2017-11-06] MEDS: cefTRIAXone IV Push 1 GM VIAL. IVP (14:23)
[2017-11-06] MEDS ORDERED: IV NORMAL SALINE 1000ML BAG 1,000 ML IV ×2 (16:30)
[2017-11-06] MEDS ORDERED: DIALYSIS PATIENT. MC (18:15)
[2017-11-06 19:30] LABS: POC GLUCOSE 108 mg/dL (70-99)
[2017-11-06] MEDS: CETIRIZINE HCL 10 MG TABLET. PO (20:53)
[2017-11-06] MEDS: diphenhydrAMINE HCL 25 MG CAPSULE PO (20:53)
[2017-11-06 21:52] LABS: POC GLUCOSE 127 mg/dL (70-99)
[2017-11-06] MEDS: ACETAMINOPHEN 325 MG TABLET. PO (23:32)
[2017-11-07 03:57] LABS: ADD MAN DIFF? NO
[2017-11-07 05:20] LABS: BASO # 0.1 x10^3/uL (0.0-0.2); BASO % 1 % (0-3); EOS # 0.3 x10^3/uL (0.0-0.7); EOS % 7 % (0-3); HEMATOCRIT 33.5 % (36.0-47.0); HEMOGLOBIN 11.2 g/dL (12.0-15.5); LYMPH # 1.6 x10^3/uL (1.0-4.8); LYMPH % 34 % (24-48); MEAN CORPUSCULAR HEMOGLOBIN 29 pg (25-35); MEAN CORPUSCULAR HGB CONC 33 g/dL (31-37); MEAN CORPUSCULAR VOLUME 87 fL (79-100); MONO # 0.6 x10^3/uL (0.0-1.1); MONO % 12 % (0-9); NEUT # 2.2 x10^3uL (1.8-7.7); NEUT % 46 % (31-73); PLATELET COUNT 272 x10^3/uL (140-400); RED BLOOD COUNT 3.87 x10^6/uL (3.50-5.40); RED CELL DISTRIBUTION WIDTH 14.2 % (11.5-14.5); WHITE BLOOD COUNT 4.7 x10^3/uL (4.0-11.0)
[2017-11-07 06:07] LABS: ANION GAP 4 (6-14); BLOOD UREA NITROGEN 13 mg/dL (7-20); CALCIUM 8.6 mg/dL (8.5-10.1); CARBON DIOXIDE 36 mmol/L (21-32); CHLORIDE 97 mmol/L (98-107); CREATININE 4.2 mg/dL (0.6-1.0); GFR 12.5; GLUCOSE 134 mg/dL (70-99); POTASSIUM 3.7 mmol/L (3.5-5.1); SODIUM 137 mmol/L (136-145)
[2017-11-07] MEDS: LEVOTHYROXINE 100 MCG TABLET PO (06:10)
[2017-11-07 06:31] LABS: POC GLUCOSE 133 mg/dL (70-99)
[2017-11-07] MEDS: IPRATRPIUM/ALBUTEROL 0.5/2.5MG 3 ML NEBU. NEB ×4 (07:52→20:01)
[2017-11-07 08:05] LABS: POC GLUCOSE 152 mg/dL (70-99)
[2017-11-07] MEDS: CITALOPRAM 10 MG TABLET. PO (08:52)
[2017-11-07] MEDS: SEVELAMER CARBONATE 800 MG TABLET. PO ×4 (08:52→18:16)
[2017-11-07] MEDS: LACTOBACILLUS RHAMNOSUS GG 1 CAPSULE. PO ×2 (08:53→20:36)
[2017-11-07] MEDS: ISOSORBIDE MONONITRATE ER 30 MG TAB.ER.24H PO (08:53)
[2017-11-07] MEDS: amLODIPine BESYLATE 10 MG TABLET PO (08:53)
[2017-11-07] MEDS: ASPIRIN ENTERIC COATED 81 MG TABLET.DR. PO (08:53)
[2017-11-07] MEDS: FOLIC/VIT B COMP W-C (RENAL) TABLET. PO (08:54)
[2017-11-07] MEDS: HEPARIN PF for SUB-Q USE 5,000 UNIT/0.5 ML VIAL. SQ ×2 (08:56→20:40)
[2017-11-07] MEDS: INSULIN ASPART 300 UNITS/3 ML INSULN.PEN SQ ×3 (08:57→17:00)
[2017-11-07] MEDS: NYSTATIN TOPICAL POWDER 15GM BOTTLE. TP ×2 (10:14→20:41)
[2017-11-07 11:45] LABS: POC GLUCOSE 192 mg/dL (70-99)
[2017-11-07] MEDS: METOCLOPRAMIDE 5 MG TABLET. PO ×3 (13:26→18:16)
[2017-11-07] MEDS: cefTRIAXone IV Push 1 GM VIAL. IVP (13:27)
[2017-11-07] MEDS: diphenhydrAMINE HCL 25 MG CAPSULE PO (20:36)
[2017-11-07] MEDS: CETIRIZINE HCL 10 MG TABLET. PO (20:36)
[2017-11-07] MEDS: ESTROGENS, CONJ VAGINAL CREAM 30GM TUBE. VG (20:41)
[2017-11-07 21:33] LABS: POC GLUCOSE 174 mg/dL (70-99)
[2017-11-08] MEDS: ONDANSETRON PF 4 MG/2 ML VIAL. IV (03:00)
[2017-11-08] MEDS: LEVOTHYROXINE 100 MCG TABLET PO (05:39)
[2017-11-08 06:12] LABS: ADD MAN DIFF? NO
[2017-11-08 06:31] LABS: BASO # 0.1 x10^3/uL (0.0-0.2); BASO % 1 % (0-3); EOS # 0.4 x10^3/uL (0.0-0.7); EOS % 10 % (0-3); HEMATOCRIT 32.2 % (36.0-47.0); HEMOGLOBIN 10.6 g/dL (12.0-15.5); LYMPH # 1.4 x10^3/uL (1.0-4.8); LYMPH % 33 % (24-48); MEAN CORPUSCULAR HEMOGLOBIN 29 pg (25-35); MEAN CORPUSCULAR HGB CONC 33 g/dL (31-37); MEAN CORPUSCULAR VOLUME 88 fL (79-100); MONO # 0.6 x10^3/uL (0.0-1.1); MONO % 13 % (0-9); NEUT # 1.8 x10^3uL (1.8-7.7); NEUT % 42 % (31-73); PLATELET COUNT 273 x10^3/uL (140-400); RED BLOOD COUNT 3.66 x10^6/uL (3.50-5.40); RED CELL DISTRIBUTION WIDTH 14.5 % (11.5-14.5); WHITE BLOOD COUNT 4.2 x10^3/uL (4.0-11.0)
[2017-11-08 06:34] LABS: ANION GAP 8 (6-14); BLOOD UREA NITROGEN 25 mg/dL (7-20); CALCIUM 8.7 mg/dL (8.5-10.1); CARBON DIOXIDE 31 mmol/L (21-32); CHLORIDE 94 mmol/L (98-107); CREATININE 6.2 mg/dL (0.6-1.0); GFR 7.9; GLUCOSE 151 mg/dL (70-99); POTASSIUM 4.3 mmol/L (3.5-5.1); SODIUM 133 mmol/L (136-145)
[2017-11-08 07:47] LABS: POC GLUCOSE 161 mg/dL (70-99)
[2017-11-08] MEDS: IPRATRPIUM/ALBUTEROL 0.5/2.5MG 3 ML NEBU. NEB ×3 (07:51→19:53)
[2017-11-08] MEDS: SEVELAMER CARBONATE 800 MG TABLET. PO ×3 (09:13→17:00)
[2017-11-08] MEDS: ASPIRIN ENTERIC COATED 81 MG TABLET.DR. PO (09:13)
[2017-11-08] MEDS: FOLIC/VIT B COMP W-C (RENAL) TABLET. PO (09:13)
[2017-11-08] MEDS: METOCLOPRAMIDE 5 MG TABLET. PO ×3 (09:14→16:30)
[2017-11-08] MEDS: CITALOPRAM 10 MG TABLET. PO (09:14)
[2017-11-08] MEDS: amLODIPine BESYLATE 10 MG TABLET PO (09:14)
[2017-11-08] MEDS: LACTOBACILLUS RHAMNOSUS GG 1 CAPSULE. PO (09:14)
[2017-11-08] MEDS: ISOSORBIDE MONONITRATE ER 30 MG TAB.ER.24H PO (09:14)
[2017-11-08] MEDS: INSULIN ASPART 300 UNITS/3 ML INSULN.PEN SQ ×3 (09:16→17:00)
[2017-11-08] MEDS: HEPARIN PF for SUB-Q USE 5,000 UNIT/0.5 ML VIAL. SQ (09:17)
[2017-11-08] MEDS: NYSTATIN TOPICAL POWDER 15GM BOTTLE. TP (09:17)
[2017-11-08 11:32] LABS: POC GLUCOSE 229 mg/dL (70-99)
[2017-11-08] MEDS: cefTRIAXone IV Push 1 GM VIAL. IVP (13:23)
== END 2017-11-08 20:15 | disposition home health service (06) | DRG 291 ==
LOC: ER 18:13 → 6 SOUTH 23:06
PROC: 5A1D70Z Performance of Urinary Filtration, Intermittent, Less than 6 Hours Per Day (ICD-10-PCS; principal; 2017-10-31)
DX: I13.2 Hypertensive heart and chronic kidney disease with heart failure and with stage 5 chronic kidney disease, or end stage renal disease (principal); E43 Unspecified severe protein-calorie malnutrition; E10.21 Type 1 diabetes mellitus with diabetic nephropathy; E10.40 Type 1 diabetes mellitus with diabetic neuropathy, unspecified; N12 Tubulo-interstitial nephritis, not specified as acute or chronic; N18.6 End stage renal disease; N39.0 Urinary tract infection, site not specified; I50.32 Chronic diastolic (congestive) heart failure; D63.8 Anemia in other chronic diseases classified elsewhere; D64.9 Anemia, unspecified; Z99.2 Dependence on renal dialysis; B96.1 Klebsiella pneumoniae [K. pneumoniae] as the cause of diseases classified elsewhere; E03.9 Hypothyroidism, unspecified; E10.22 Type 1 diabetes mellitus with diabetic chronic kidney disease; Z68.36 Body mass index [BMI] 36.0-36.9, adult; E61.1 Iron deficiency; E78.5 Hyperlipidemia, unspecified; F32.9 Major depressive disorder, single episode, unspecified; F41.9 Anxiety disorder, unspecified; G25.0 Essential tremor; I69.349 Monoplegia of lower limb following cerebral infarction affecting unspecified side; K21.9 Gastro-esophageal reflux disease without esophagitis; M06.9 Rheumatoid arthritis, unspecified; M19.90 Unspecified osteoarthritis, unspecified site; Z79.4 Long term (current) use of insulin; Z80.3 Family history of malignant neoplasm of breast; Z82.49 Family history of ischemic heart disease and other diseases of the circulatory system; Z83.3 Family history of diabetes mellitus; Z86.711 Personal history of pulmonary embolism; Z86.718 Personal history of other venous thrombosis and embolism; Z87.440 Personal history of urinary (tract) infections; Z90.49 Acquired absence of other specified parts of digestive tract; Z91.19 Patient's noncompliance with other medical treatment and regimen; E21.3 Hyperparathyroidism, unspecified; Z98.51 Tubal ligation status; Z88.5 Allergy status to narcotic agent; Z80.9 Family history of malignant neoplasm, unspecified; B96.20 Unspecified Escherichia coli [E. coli] as the cause of diseases classified elsewhere; D72.829 Elevated white blood cell count, unspecified; D72.819 Decreased white blood cell count, unspecified
CPT/HCPCS: 36415; 71045; 71260; 74177; 80048; 80053; 80202; 81001; 82962; 83605; 83690; 84484; 85025; 87040; 87086; 87186; 93005; 94640; 94760; 96361; 96365; 97110-GP; 97162-GP; 97166-GO; 97530-GO; 97535-GO; 99285; 99285-25; J0696; J0881; J1200; J1815; J2405; J2543; J3370; J7030; J7620; J8597; Q0163; Q9967

== ENCOUNTER 2018-02-24 16:18 | Emergency (ER) | payer MEDICARE, OTHER | END 2018-02-24 18:24 | disposition home or self-care (01) | LOC: ER 16:18 | DX: M54.2 Cervicalgia (principal); M25.571 Pain in right ankle and joints of right foot; M25.572 Pain in left ankle and joints of left foot; I13.2 Hypertensive heart and chronic kidney disease with heart failure and with stage 5 chronic kidney disease, or end stage renal disease; E10.22 Type 1 diabetes mellitus with diabetic chronic kidney disease; N18.6 End stage renal disease; I50.9 Heart failure, unspecified; Z99.2 Dependence on renal dialysis; Z90.49 Acquired absence of other specified parts of digestive tract; Z98.51 Tubal ligation status; Z88.5 Allergy status to narcotic agent; W05.0XXA Fall from non-moving wheelchair, initial encounter; Y93.89 Activity, other specified; Y99.8 Other external cause status; Y92.89 Other specified places as the place of occurrence of the external cause | CPT/HCPCS: 70450; 72125; 72128; 72131; 73610; 99284-25 ==

== ENCOUNTER 2018-10-31 07:20 | Outpatient (CLI) | payer MEDICARE, OTHER ==
[~2018-10-31] VITALS: Ht 160 cm; Wt 93.4 kg
[~2018-10-31 07:20] MED LIST changes: +ACET325T9 PO; -AMLO10TA2 PO; +AMLO10TA8 PO; +AMOX1TAB61 PO; +CARV12.511 PO; -CARV12.52 PO; +CEFP100T PO; +CEPH-264 PO; +DARB60DI SQ; +ESTR30CR VG; +GUAI600T47 PO; +HEPA500022 SQ; +HYDR-3164 PO; +IPRA3AMP29 NEB; +ISOS30TA4 PO; +LACT1CAP19 PO; +LINA5TAB PO; -LINA5TAB4 PO; +METO5TAB PO; +NYST15CR TP
[2018-10-31] MEDS ORDERED: CALC667T4 PO (07:48)
[2018-10-31] MEDS ORDERED: IOHEXOL 240 MG/ML 100 ML VIAL. ONE ×2 (07:55→08:27)
[2018-10-31] MEDS ORDERED: LIDOCAINE WITH 8.4% SOD BICARB 3 ML DISP.SYRIN. ONE (07:55)
[2018-10-31 07:56] LABS: BASO % 1 % (0-3); EOS # 0.2 x10^3/uL (0.0-0.7); EOS % 4 % (0-3); HEMATOCRIT 35.6 % (36.0-47.0); HEMOGLOBIN 11.9 g/dL (12.0-15.5); LYMPH # 1.5 x10^3/uL (1.0-4.8); LYMPH % 32 % (24-48); MEAN CORPUSCULAR HEMOGLOBIN 29 pg (25-35); MEAN CORPUSCULAR HGB CONC 33 g/dL (31-37); MEAN CORPUSCULAR VOLUME 87 fL (79-100); MONO # 0.3 x10^3/uL (0.0-1.1); MONO % 7 % (0-9); NEUT # 2.6 x10^3uL (1.8-7.7); NEUT % 56 % (31-73); PLATELET COUNT 217 x10^3/uL (140-400); RED CELL DISTRIBUTION WIDTH 13.6 % (11.5-14.5); WHITE BLOOD COUNT 4.7 x10^3/uL (4.0-11.0)
[2018-10-31 08:05] LABS: PROTHROMBIN TIME PATIENT 13.7 SEC (11.7-14.0)
[2018-10-31 08:13] LABS: CALCIUM 8.9 mg/dL (8.5-10.1); CREATININE 10.3 mg/dL (0.6-1.0); GFR 4.4; POTASSIUM 4.6 mmol/L (3.5-5.1)
[2018-10-31 08:18] VITALS: BP 151/93
[2018-10-31] MEDS ORDERED: MIDAZOLAM HCL/PF 2 MG/2 ML VIAL. ONE ×2 (08:34→09:48)
[2018-10-31] MEDS ORDERED: HEPARIN for IV BOLUS 10,000 UNIT/10 ML VIAL. ONE (08:35)
[2018-10-31] MEDS ORDERED: fentaNYL PF VIAL 100 MCG/2 ML VIAL ONE ×2 (08:35→09:48)
[2018-10-31] MEDS ORDERED: MIDAZOLAM HCL/PF 2 MG/2 ML VIAL. IV ONE (09:15)
[2018-10-31] MEDS ORDERED: CONTRAST GIVEN. MC PRN ×2 (09:15→10:30)
[2018-10-31] MEDS ORDERED: HEPARIN for IV BOLUS 10,000 UNIT/10 ML VIAL. IV ONE (09:15)
[2018-10-31] MEDS ORDERED: IOHEXOL 240 MG/ML 100 ML VIAL. IV ONE (09:15)
[2018-10-31] MEDS ORDERED: LIDOCAINE WITH 8.4% SOD BICARB 3 ML DISP.SYRIN. IJ ONE (09:15)
[2018-10-31] MEDS ORDERED: fentaNYL PF VIAL 100 MCG/2 ML VIAL IV ONE (09:15)
[2018-10-31] MEDS ORDERED: IODIXANOL 320 MG/ML 50ML VIAL. ONE (10:09)
[2018-10-31] MEDS ORDERED: IODIXANOL 320 MG/ML 50ML VIAL. IART ONE (10:15)
[2018-10-31] MEDS ORDERED: ALTEPLASE 2 MG VIAL INT CAT ONE (10:30)
[2018-10-31 10:55] VITALS: BP 168/55
[2018-10-31 11:10] VITALS: BP 155/70
[2018-10-31 11:25] VITALS: BP 152/68
[2018-10-31 11:40] VITALS: BP 160/82
[2018-10-31 11:55] VITALS: BP 160/71
--- NOTE | 2018-10-31 12:14 | NUR ---
DISCHARGE NOTES: Pt is stable. VSS. Pt ate lunch w/o nausea. Discharge instructions ( incision care-Elevation of R arm and checking hematoma around fistula area, activity, medications) were reviewed w/ patient and family member. Pt and the family member verbalized understanding. Pt's belongings were w/ pt. IV is out by this nurse. Pt is taken to lobby by this nurse via W/C.
--- NOTE | 2018-11-03 12:02 | RAD ---
4.12.19 1. Right upper extremity fistulogram 2. Catheter directed thrombolysis, right upper extremity fistula 3. Balloon angioplasty of multifocal venous stenoses Indication: 78-year-old female presents with a thrombosed right upper extremity fistula. Shows history of old interventions include an placement of a mid arm and subclavian stent. Discussion: The risks and benefits of the procedure were discussed the patient. Informed consent was obtained. Timeout procedure was performed. The right upper extremity was prepped and draped using maximum sterile barrier technique. Ultrasound evaluation demonstrates the entire fistula to be thrombosed. 1% lidocaine was administered for local anesthesia. Ultrasound was used to access the fistula just beyond the arterial anastomosis. Reference ultrasound images were saved in the medical record. A short 6 [place] vascular sheath was placed. A infusion catheter was advanced into the thrombosed fistula and 6 mg of IV TPA administered. The patient was heparinized. After a 20 minute intubation, a catheter and guidewire were advanced centrally. A pullback venogram was obtained demonstrating thrombosis extending from the anastomosis to the previously stented subclavian vein. Narrowing at the junction of the subclavian and brachiocephalic vein noted. Balloon maceration was performed with a 7 mm balloon. Vascular access was obtained directed towards arterial anastomosis and a second 6 [place] sheath was placed. A guidewire was advanced into the brachial artery. Over this wire a 5 mm balloon was advanced and used to pull the arterial plug, thereby reestablishing blood flow through the fistula. Clot maceration was repeated throughout the fistula. Some residual areas of stenosis were present in the outflow vein including the stented portion of the vessel as well as the subclavian stent. These were treated with 8 mm balloon angioplasty. The stenosis extending from the subclavian stent into the brachiocephalic treated with 10 mm balloon angioplasty. This ultimately resulted in brisk flow through the fistula. Some mild areas of irregularity persists but does not appear to be flow-limiting. Access sites were removed over pursestring sutures. Sterile dressings were applied. Patient tolerated this without immediate complication. Total fluoroscopy time:: 20.3 Dose area product: 89 Gycm2: The procedures performed under conscious sedation including continuous cardiopulmonary monitoring via a dedicated sedation nurse. [id number] sedation Time: 115 min Impression: Thrombosed right upper extremity fistula successfully treated with a combination of TPA catheter directed thrombolysis, balloon maceration, and balloon venoplasty as described. Multifocal stenoses also treated with balloon angioplasty as described.
== END 2018-10-31 12:27 | disposition home or self-care (01) ==
LOC: INTRAD 07:20
PROVIDERS: ATTEND Internal Medicine Nephrology
DX: T82.868A Thrombosis due to vascular prosthetic devices, implants and grafts, initial encounter (principal); Z88.5 Allergy status to narcotic agent; Z79.01 Long term (current) use of anticoagulants; Y83.2 Surgical operation with anastomosis, bypass or graft as the cause of abnormal reaction of the patient, or of later complication, without mention of misadventure at the time of the procedure; Y92.89 Other specified places as the place of occurrence of the external cause; Z79.899 Other long term (current) drug therapy
CPT/HCPCS: 36415; 36905; 36907; 76937; 80048; 85025; 85610; 85730; 99152; 99153; C1725; C1757; C1769; C1892; C1894; J1644; J2250; J3010; Q9966; Q9967

== ENCOUNTER 2019-02-19 06:22 | Emergency (ER) | payer MEDICARE, OTHER ==
[~2019-02-19] VITALS: Ht 160 cm; Wt 93.4 kg
[~2019-02-19 06:22] MED LIST changes: +CALC667T4 PO
[2019-02-19] MEDS ORDERED: diazePAM 5 MG TABLET PO ONE (07:00)
--- NOTE | 2019-02-19 07:03 | EKG ---
[facility] [address] [place] [address] Test Date: 2019-02-19 Test Time: 06:53:49 Pat Name: MALA BAILEY Department: Room: Gender: F Flooring Sales Manager: : 1940 Requested By: SOURAV DE SOUZA Order Number: [id number] Reading MD: Measurements Intervals [place] Rate: 67 P: 36 [place]: 194 QRS: -7 QRSD: 94 T: 32 QT: 406 QTc: 431 Interpretive Statements SINUS RHYTHM LEFTWARD AXIS OTHERWISE NORMAL ECG No previous ECG available for comparison
[2019-02-19 07:07] LABS: BASO % 0 % (0-3); EOS # 0.3 x10^3/uL (0.0-0.7); EOS % 5 % (0-3); HEMOGLOBIN 11.1 g/dL (12.0-15.5); LYMPH # 1.7 x10^3/uL (1.0-4.8); LYMPH % 36 % (24-48); MEAN CORPUSCULAR HEMOGLOBIN 28 pg (25-35); MEAN CORPUSCULAR HGB CONC 33 g/dL (31-37); MEAN CORPUSCULAR VOLUME 87 fL (79-100); MONO # 0.4 x10^3/uL (0.0-1.1); MONO % 8 % (0-9); NEUT # 2.3 x10^3/uL (1.8-7.7); NEUT % 50 % (31-73); PLATELET COUNT 194 x10^3/uL (140-400); RED CELL DISTRIBUTION WIDTH 13.2 % (11.5-14.5); WHITE BLOOD COUNT 4.7 x10^3/uL (4.0-11.0)
--- NOTE | 2019-02-19 08:02 | PHYS DOC ---
Past Medical History Past Medical History: CHF, Diabetes-Type II, Renal Disease, Stroke, Other Additional Past Medical Histor: TREMORS Past Surgical History: Appendectomy, Tubal ligation, Other Additional Past Surgical Histo: RIGHT FISTULA Alcohol Use: None Drug Use: None Adult General Chief Complaint Chief Complaint: DIZZY/LIGHT HEADED HPI HPI Patient is a 78-year-old female who presents with what she describes as sloshing sound in her ears and associated dizziness. She states she feels like her ears are full of wax. She denies headache or any lateralizing neurologic weakness or clumsiness. She states when she moves her head the room seems to spin. She denies any chest pain shortness of breath or dyspnea on exertion.[] Review of Systems Review of Systems Constitutional: Denies fever or chills [] Eyes: Denies change in visual acuity, redness, or eye pain [] HENT: Denies nasal congestion or sore throat [] Respiratory: Denies cough or shortness of breath [] Cardiovascular: No additional information not addressed in HPI [] GI: Denies abdominal pain, nausea, vomiting, bloody stools or diarrhea [] : Denies dysuria or hematuria [] Musculoskeletal: Denies back pain or joint pain [] Integument: Denies rash or skin lesions [] Neurologic: Reports dizziness[] Endocrine: Denies polyuria or polydipsia [] All other systems were reviewed and found to be within normal limits, except as documented in this note. Current Medications Current Medications Current Medications Medications (Trade) Dose Ordered Sig/Pat Start Time Stop Time Status Last Admin Dose Admin Diazepam (Valium) 5 mg 1X ONCE 02/19/19 07:00 02/19/19 07:01 DC 02/19/19 07:33 5 MG Allergies Allergies Allergies Coded Allergies Type Severity Reaction Last Updated Verified morphine Allergy Severe 06/12/14 Yes codeine Allergy Intermediate HIVES 06/12/14 Yes Physical Exam Physical Exam Constitutional: Well developed, well nourished, no acute distress, non-toxic appearance. [] HENT: Impacted cerumen bilaterally. [] Eyes: PERRLA, EOMI, conjunctiva normal, no discharge. [] Neck: Normal range of motion, no tenderness, supple, no stridor. [] Cardiovascular:Heart rate regular rhythm, no murmur [] Lungs & Thorax: Bilateral breath sounds clear to auscultation [] Abdomen: Bowel sounds normal, soft, no tenderness, no masses, no pulsatile masses. [] Skin: Warm, dry, no erythema, no rash. [] Back: No tenderness, no CVA tenderness. [] Extremities: No tenderness, no cyanosis, no clubbing, ROM intact, no edema. [] Neurologic: Alert and oriented X 3, normal motor function, normal sensory function, no focal deficits noted. [] Psychologic: Very anxious. [] Current Patient Data Vital Signs Vital Signs Date Time Temp Pulse Resp B/P (MAP) Pulse Ox O2 Delivery O2 Flow Rate FiO2 02/19/19 09:02 61 10 94 02/19/19 06:35 98.4 195/83 (120) Room Air 98.4 Lab Values Laboratory Tests Test 02/19/19 07:00 02/19/19 08:15 White Blood Count 4.7 x10^3/uL (4.0-11.0) Red Blood Count 3.90 x10^6/uL (3.50-5.40) Hemoglobin 11.1 g/dL (12.0-15.5) L Hematocrit 34.0 % (36.0-47.0) L Mean Corpuscular Volume 87 fL (79-100) Mean Corpuscular Hemoglobin 28 pg (25-35) Mean Corpuscular Hemoglobin Concent 33 g/dL (31-37) Red Cell Distribution Width 13.2 % (11.5-14.5) Platelet Count 194 x10^3/uL (140-400) Neutrophils (%) (Auto) 50 % (31-73) Lymphocytes (%) (Auto) 36 % (24-48) Monocytes (%) (Auto) 8 % (0-9) Eosinophils (%) (Auto) 5 % (0-3) H Basophils (%) (Auto) 0 % (0-3) Neutrophils # (Auto) 2.3 x10^3/uL (1.8-7.7) Lymphocytes # (Auto) 1.7 x10^3/uL (1.0-4.8) Monocytes # (Auto) 0.4 x10^3/uL (0.0-1.1) Eosinophils # (Auto) 0.3 x10^3/uL (0.0-0.7) Basophils # (Auto) 0.0 x10^3/uL (0.0-0.2) Sodium Level 139 mmol/L (136-145) Potassium Level 4.7 mmol/L (3.5-5.1) Chloride Level 99 mmol/L (98-107) Carbon Dioxide Level 29 mmol/L (21-32) Anion Gap 11 (6-14) Blood Urea Nitrogen 35 mg/dL (7-20) H Creatinine 6.5 mg/dL (0.6-1.0) H Estimated GFR (Cockcroft-Gault) 7.5 BUN/Creatinine Ratio 5 (6-20) L Glucose Level 194 mg/dL (70-99) H Calcium Level 7.8 mg/dL (8.5-10.1) L Total Bilirubin 0.3 mg/dL (0.2-1.0) Aspartate Amino Transferase (AST) 14 U/L (15-37) L Alanine Aminotransferase (ALT) 15 U/L (14-59) Alkaline Phosphatase 64 U/L (46-116) Total Protein 7.4 g/dL (6.4-8.2) Albumin 3.0 g/dL (3.4-5.0) L Albumin/Globulin Ratio 0.7 (1.0-1.7) L Laboratory Tests 02/19/19 07:00 Laboratory Tests 02/19/19 08:15 EKG EKG [] Interpretation Time: EKG: Normal sinus rhythm rate of [address]-T changes Radiology/Procedures Radiology/Procedures [] Impressions: REASON: dizziness PROCEDURE: CT HEAD WO CONTRAST EXAM: Head CT without contrast. HISTORY: Dizziness. TECHNIQUE: Computed tomographic images of the head were obtained without contrast. *One or more of the following individualized dose reduction techniques were utilized for this examination: 1. Automated exposure control. 2. Adjustment of the mA and/or kV according to patient size. 3. Use of iterative reconstruction technique. COMPARISON: 09/02/2017. FINDINGS: There is no acute or subacute extra-axial or intraparenchymal hemorrhage. There is no mass effect or midline shift. There is no hydrocephalus. There are areas of decreased attenuation within the cerebral white matter, nonspecific and likely related to chronic small vessel disease. The visualized portions of the orbits, paranasal sinuses and mastoid air cells are unremarkable. No suspicious calvarial lesion is seen. IMPRESSION: No acute intracranial findings. Course & Med Decision Making Course & Med Decision Making Pertinent Labs and Imaging studies reviewed. (See chart for details) [ED course: Evaluation reveals a 78-year-old female with bilateral cerumen impaction. She had her ears irrigated with good results. I did give her 5 mg of Valium by mouth for her dizziness which completely eliminated the dizziness and helped her rest. Her laboratory studies were unremarkable as was her EKG. I feel these symptoms are related to her cerumen impaction and some underlying vertigo. However, when attempting to get the patient up to standing she was still very unsteady on her feet and develops more dizziness. At this time I think is probably best to keep her in the hospital for further evaluation. After close observation for a couple of hours patient changed her mind and felt better and wanted to go home at this point I feel she is safe to do so..] Dragon Disclaimer Dragon Disclaimer This electronic medical record was generated, in whole or in part, using a voice recognition dictation system. Departure Departure Impression: Primary Impression: Vertigo Additional Impression: Impacted cerumen of both ears Disposition: ADMITTED INPATIENT Condition: GUARDED Referrals: SHADI DUVALL MD (PCP) Patient Instructions: Cerumen Impaction, Vertigo Additional Instructions: Follow with Dr. Duvall next week for recheck. Return to the emergency department with any new or concerning symptoms Scripts Meclizine Hcl (MECLIZINE HCL) 25 Mg Tablet 1 TAB PO Q8HRS PRN for dizziness, #30 TAB 30 Refills Prov: SOURAV DE SOUZA DO 02/19/19 Problem Qualifiers SOURAV DE SOUZA DO Feb 19, 2019 08:02
[2019-02-19 08:56] LABS: CALCIUM 7.8 mg/dL (8.5-10.1); CREATININE 6.5 mg/dL (0.6-1.0); GFR 7.5; POTASSIUM 4.7 mmol/L (3.5-5.1)
[2019-02-19 09:02] VITALS: BP 127/69
[2019-02-19 09:02] LABS: ALBUMIN/GLOBULIN RATIO 0.7 (1.0-1.7); TOTAL BILIRUBIN 0.3 mg/dL (0.2-1.0); TOTAL PROTEIN 7.4 g/dL (6.4-8.2)
[2019-02-19] MEDS ORDERED: MECL25TA3 PO (09:11)
--- NOTE | 2019-02-19 10:01 | RAD ---
EXAM: Head CT without contrast. HISTORY: Dizziness. TECHNIQUE: Computed tomographic images of the head were obtained without contrast. *One or more of the following individualized dose reduction techniques were utilized for this examination: 1. Automated exposure control. 2. Adjustment of the mA and/or kV according to patient size. 3. Use of iterative reconstruction technique. COMPARISON: 09/02/2017. FINDINGS: There is no acute or subacute extra-axial or intraparenchymal hemorrhage. There is no mass effect or midline shift. There is no hydrocephalus. There are areas of decreased attenuation within the cerebral white matter, nonspecific and likely related to chronic small vessel disease. The visualized portions of the orbits, paranasal sinuses and mastoid air cells are unremarkable. No suspicious calvarial lesion is seen. IMPRESSION: No acute intracranial findings. Electronically signed by: Rima Kinney MD (02/19/2019 9:58 AM) [place] [id number]
[2019-02-19] MEDS ORDERED: ACETAMINOPHEN 325 MG TABLET. PO PRN (11:15)
[2019-02-19] MEDS ORDERED: LEVOTHYROXINE 100 MCG TABLET PO SCH (12:00)
[2019-02-19] MEDS ORDERED: IPRATRPIUM/ALBUTEROL 0.5/2.5MG 3 ML NEBU. NEB SCH (12:00)
[2019-02-19] MEDS ORDERED: ISOSORBIDE MONONITRATE ER 30 MG TAB.ER.24H PO SCH (12:00)
[2019-02-19] MEDS ORDERED: CITALOPRAM 10 MG TABLET. PO SCH (12:00)
[2019-02-19] MEDS ORDERED: ASPIRIN ENTERIC COATED 81 MG TABLET.DR. PO SCH (12:00)
[2019-02-19] MEDS ORDERED: amLODIPine BESYLATE 10 MG TABLET PO SCH (12:00)
[2019-02-19] MEDS ORDERED: FOLIC/VIT B COMP W-C (RENAL) TABLET. PO SCH (12:00)
[2019-02-19] MEDS ORDERED: CALCIUM ACETATE 667 MG CAPSULE PO SCH (12:00)
[2019-02-19] MEDS ORDERED: INSULIN LISPRO 300 UNITS/3 ML INSULN.PEN. SQ SCH (16:30)
[2019-02-19] MEDS ORDERED: CETIRIZINE HCL 10 MG TABLET. PO SCH (21:00)
[2019-02-20] MEDS ORDERED: ESTROGENS, CONJ VAGINAL CREAM 30GM TUBE. VG SCH (09:00)
[2019-02-26] MEDS ORDERED: DARBEPOETIN ALFA 60 MCG/0.3 ML DISP.SYRIN. SQ SCH (21:00)
== END 2019-02-19 10:09 | disposition home or self-care (01) ==
LOC: ER 06:22 → UNDOADMIN 09:30 → 6 SOUTH 09:30 → UNDODISIN 09:31
DX: R42 Dizziness and giddiness (principal); H61.23 Impacted cerumen, bilateral
CPT/HCPCS: 36415; 69209; 70450; 80053; 85025; 93005; 99285; J1815; G0378